=== PATIENT | female | born 1940 | race Caucasian/White ===

== ENCOUNTER 2017-09-17 13:18 | Inpatient (IN) | payer MEDICARE ==
--- NOTE | 2017-09-17 13:48 | ED Physician Chart ---
ED Chief Complaint/HPI - Patient Information Date Seen:: 09/17/17 Time Seen:: 13:37 Chief Complaint:: r/o chf History of Present Illness:: 77 yr old female here from [facility] of [facility] SPANN , PT WITH HX OF PLEURAL EFFUSION CARDIOMEGALY AND SOB ALSO PT WITH DIFFUSE SKIN LESIONS THROUGHOUT PT ANXIOUS NOT VERY COOPERATIVE AND CONFUSED ALERT TO NAME AND TYPE OF PLACE Allergies:: Allergies Allergy/AdvReac Type Severity Reaction Status Date / Time ibuprofen Allergy Verified 09/17/17 13:27 Vitals:: Vital Signs - 8 hr 09/17/17 13:27 Temp 97.1 F HR 95 RR 17 BP 135/92 O2 Sat % 95 Historian:: Patient, Medical Records ED Review of Systems - Review of Systems General/Constitutional: No fever, No chills, No weight loss, No weakness, No diaphoresis, No edema, No loss of appetite Skin: Skin lesions, Rash, Bruising Head: No headache, No light-headedness Eyes: No loss of vision, No pain, No diplopia ENT: No earache, No nasal drainage, No sore throat, No tinnitus Neck: No neck pain, No swelling, No thyromegaly, No stiffness, No mass noted Cardio Vascular: No chest pain, No palpitations, No PND, No orthopnea, No edema Pulmonary: SOB GI: No nausea, No vomiting, No diarrhea, No pain, No melena, No hematochezia, No constipation, No hematemesis G/U: No dysuria, No frequency, No hematuria Musculoskeletal: No bone or joint pain, No back pain, No muscle pain Endocrine: No polyuria, No polydipsia Psychiatric: Anxiety Hematopoietic: No bruising, No lymphadenopathy Allergic/Immuno: No urticaria, No angioedema Neurological: No syncope, No focal symptoms, No weakness, No paresthesia, No headache, No seizure, No dizziness, No confusion, No vertigo ED Past Medical History - Past Medical History Past Medical History: CHF, Other (CARDIOMEGALY PLEURAL EFFUSIONS) ED Physical Exam - Physical Examination General/Constitutional: Alert Head: Atraumatic Eyes: Lids, conjuctiva normal Other Skin comments:: LARGE SKIN LESIONS OPEN THROUGHOUT BACK AND LEGS AND THROUGHOUT OPEN SCRATCH LESIONS WITH ERYTHEMA ENMT: External ears, nose nl Neck: Nontender Respiratory: Nl effort/Exclusion GI: No tenderness/rebounding/guarding, No organomegaly : No CVA tenderness Extremities: Full ROM Neuro/Psych: Alert/oriented Misc: No paraspinal tenderness ED Assessment - Assessment General Assessment: CHF DERMATITIS ED Septic Shock - . Is Septic Shock (SBP<90, OR Lactate>4 mmol\L) present?: No - <6hrs of presentation: Vital Signs: Vital Signs - 8 hr 09/17/17 13:27 Temp 97.1 F HR 95 RR 17 BP 135/92 O2 Sat % 95 ED Reassessment (Disposition) - Reassessment Reassessment Condition:: Improved - Diagnosis Diagnosis:: CHF DERMATITIS - Patient Disposition Discharge/Transfer:: Acute Care w/in this hosp Admitted to:: Med/Surg ED Discharge Plan - Patient Disposition Admit/Discharge/Transfer: Acute Care w/in this hosp Condition at Disposition: Stable
[2017-09-17 14:15] LABS: % BASOPHILS 0.7 % (0.0-2.0); % EOSINOPHILS 1.8 % (0.0-5.0); % LYMPHOCYTES 24.6 % (20.0-50.0); % MONOCYTES 7.2 % (2.0-10.0); % NEUTROPHILS 65.7 % (40.0-80.0); BASOPHILE ABSOLUTE 0.1 Th/cumm (0-0.2); EOSINOPHILE ABSOLUTE 0.1 Th/cmm (0.1-0.4); HEMATOCRIT 46.9 % (41.0-60); HEMOGLOBIN 15.3 gm/dL (12-16); LYMPHOCYTE ABSOLUTE 1.9 Th/cmm (1.5-3.0); MEAN CORPUSCULAR HEMOGLOBIN 24.7 pg (27.0-31.0); MEAN CORPUSCULAR HGB CONC 32.5 pg (28.0-36.0); MONOCYTE ABSOLUTE 0.5 Th/cmm (0.3-1.0); PLATELET COUNT 179 Th/cmm (150-400); RED BLOOD COUNT 6.18 Mil/cmm (3.80-5.20); RED CELL DISTRIBUTION WIDTH 15.3 % (11.5-20.0); WHITE BLOOD COUNT 7.6 Th/cmm (4.8-10.8)
[2017-09-17 14:22] LABS: INR 1.08 (0.5-1.4); PROTHROMBIN TIME (TEST) 11.2 SECONDS (9.5-11.5)
[2017-09-17 14:31] LABS: ALB/GLOB RATIO 0.6 (1.0-1.8); ALBUMIN 2.8 gm/dL (3.7-5.3); ALKALINE PHOSPHATASE 113 U/L (34-104); ANION GAP 10.7 (7.0-16.0); BILIRUBIN,TOTAL 1.6 mg/dL (0.3-1.0); BUN - UREA NITROGEN 14 mg/dL (7-25); CALCIUM SERUM 8.9 mg/dL (8.6-10.3); CARBON DIOXIDE 28.9 mEq/L (21.0-31.0); CHLORIDE 94 mEq/L (98-107); CREATININE - SERUM 0.6 mg/dL (0.6-1.2); GLUCOSE 188 mg/dL (70-105); POTASSIUM SERUM 3.6 mEq/L (3.5-5.1); SGOT 30 U/L (13-39); SGPT/ALT 22 U/L (7-52); SODIUM SERUM 130 mEq/L (136-145); TOTAL PROTEIN,SERUM 7.4 gm/dL (6.0-8.3)
[2017-09-17] MEDS ORDERED: cefTRIAXone 2 GM in Sodium Chloride 0.9% 100 ML IV ONE (15:29)
[2017-09-17] MEDS ORDERED: Sodium Chloride 0.9% 1,000 ML IV ONE (15:29)
[2017-09-17 17:26] VITALS: BP 113/48
[2017-09-17 19:43] LABS: A1C % 7.8 % (4.0-6.0)
[2017-09-17] MEDS ORDERED: Magnesium Hydroxide (MOM) 30 mL UDC PO PRN (20:12)
[2017-09-17] MEDS ORDERED: Non-Formulary Item 1 EA (Ondansetron Hcl [Zofran*] 4 MG) PO PRN (20:12)
[2017-09-17] MEDS ORDERED: Morphine Sulfate 2 mg/mL 1mL Syr IVP PRN (20:21)
[2017-09-17] MEDS: INSULIN ASPART SLIDING SCALE 100 UNITS/ML UNIT SUBQ SCH (21:14)
--- NOTE | 2017-09-17 21:24 | History & Physical ---
ADMIT DATE: 09/17/2017 HISTORY OF PRESENT ILLNESS: This patient came into the Emergency Room, [facility]. Prior history of congestive heart failure, prior history of psychosis, and the patient developed a lot of skin lesions. The patient was short of breath and had pleural effusion, had cardiomegaly, and also had a history of cardiomyopathy. The patient was short of breath, was simply evaluated in the ER, was admitted for dermatitis, skin infection, cardiomegaly, cardiomyopathy, congestive heart failure. REVIEW OF SYSTEMS: Essentially skin lesions and rash and bruising. PHYSICAL EXAMINATION: HEAD: Normal. ENT: Normal. LUNGS: Bilateral rales. CARDIOVASCULAR SYSTEM: S1, S2 heard. ABDOMEN: Soft. Bowel sounds are heard. CENTRAL NERVOUS SYSTEM: The patient is confused and has underlying psychosis. DIAGNOSES: Congestive heart failure, cardiomyopathy, cardiomegaly, infected skin lesions, rule out scabies, rule out sepsis, also history of psychosis. PLAN: The patient was admitted for further diagnostic and therapeutic measures. [facility]# [id number]
[2017-09-18] MEDS: Triple Antibiotic 0.94 gm Pkt TP SCH ×2 (02:38→08:15)
[2017-09-18 04:58] LABS: % BASOPHILS 0.7 % (0.0-2.0); % EOSINOPHILS 1.6 % (0.0-5.0); % MONOCYTES 7.6 % (2.0-10.0); % NEUTROPHILS 70.1 % (40.0-80.0); BASOPHILE ABSOLUTE 0.1 Th/cumm (0-0.2); EOSINOPHILE ABSOLUTE 0.1 Th/cmm (0.1-0.4); HEMATOCRIT 42.8 % (41.0-60); HEMOGLOBIN 13.8 gm/dL (12-16); LYMPHOCYTE ABSOLUTE 1.5 Th/cmm (1.5-3.0); MEAN CELL VOLUME 75.7 fl (81-100); MEAN CORPUSCULAR HEMOGLOBIN 24.3 pg (27.0-31.0); MEAN CORPUSCULAR HGB CONC 32.1 pg (28.0-36.0); MONOCYTE ABSOLUTE 0.6 Th/cmm (0.3-1.0); PLATELET COUNT 171 Th/cmm (150-400); RED BLOOD COUNT 5.65 Mil/cmm (3.80-5.20); RED CELL DISTRIBUTION WIDTH 15.5 % (11.5-20.0); WHITE BLOOD COUNT 7.3 Th/cmm (4.8-10.8)
[2017-09-18 05:21] LABS: ANION GAP 8.7 (7.0-16.0); BUN - UREA NITROGEN 15 mg/dL (7-25); CALCIUM SERUM 8.5 mg/dL (8.6-10.3); CARBON DIOXIDE 28.1 mEq/L (21.0-31.0); CHLORIDE 96 mEq/L (98-107); CHOLESTEROL 115 mg/dL (<200); CREATININE - SERUM 0.5 mg/dL (0.6-1.2); GLUCOSE 133 mg/dL (70-105); HDL -HIGH DENSITY LIPOPROTEIN 39 mg/dL (23-92); POTASSIUM SERUM 3.8 mEq/L (3.5-5.1); SODIUM SERUM 129 mEq/L (136-145); TRIGLYCERIDES 49 mg/dL (<150)
--- NOTE | 2017-09-18 08:00 | Diagnostic Imaging Report ---
Exam: Portable chest x-ray HISTORY: Shortness of breath. Findings: Portable upright examination of the chest at 1411 hours reviewed, no prior studies available for comparison. The study demonstrates cardiomegaly. Bilateral infiltrates superimposed effusions. Mild congestion present. Bony thorax intact. The aorta is calcified. COPD changes noted. IMPRESSION: COPD changes Basilar infiltrates superimposed effusions Congestion. Follow-up examination recommended.
[2017-09-18] MEDS: INSULIN ASPART SLIDING SCALE 100 UNITS/ML UNIT SUBQ SCH ×4 (08:13→20:17)
[2017-09-18] MEDS: Multivitamin w/ Minerals Tab PO SCH (08:16)
--- NOTE | 2017-09-18 16:21 | General Progress Note ---
Subjective - Review of Systems Events since last encounter: no distress Objective - Results Result Diagrams: 09/18/17 04:35 09/18/17 04:35 Recent Labs: Laboratory Last Values WBC 7.3 Th/cmm (4.8-10.8) 09/18/17 04:35 RBC 5.65 Mil/cmm (3.80-5.20) H 09/18/17 04:35 Hgb 13.8 gm/dL (12-16) 09/18/17 04:35 Hct 42.8 % (41.0-60) 09/18/17 04:35 MCV 75.7 fl (81-100) L 09/18/17 04:35 MCH 24.3 pg (27.0-31.0) L 09/18/17 04:35 MCHC Differential 32.1 pg (28.0-36.0) 09/18/17 04:35 RDW 15.5 % (11.5-20.0) 09/18/17 04:35 Plt Count 171 Th/cmm (150-400) 09/18/17 04:35 MPV 7.0 fl 09/18/17 04:35 Neutrophils % 70.1 % (40.0-80.0) 09/18/17 04:35 Lymphocytes % 20.0 % (20.0-50.0) 09/18/17 04:35 Monocytes % 7.6 % (2.0-10.0) 09/18/17 04:35 Eosinophils % 1.6 % (0.0-5.0) 09/18/17 04:35 Basophils % 0.7 % (0.0-2.0) 09/18/17 04:35 PT 11.2 SECONDS (9.5-11.5) 09/17/17 13:48 INR 1.08 (0.5-1.4) 09/17/17 13:48 PTT (Actin FS) 26.4 SECONDS (26.0-38.0) 09/17/17 13:48 Sodium 129 mEq/L (136-145) L 09/18/17 04:35 Potassium 3.8 mEq/L (3.5-5.1) 09/18/17 04:35 Chloride 96 mEq/L (98-107) L 09/18/17 04:35 Carbon Dioxide 28.1 mEq/L (21.0-31.0) 09/18/17 04:35 Anion Gap 8.7 (7.0-16.0) 09/18/17 04:35 BUN 15 mg/dL (7-25) 09/18/17 04:35 Creatinine 0.5 mg/dL (0.6-1.2) L 09/18/17 04:35 Est GFR ( Amer) TNP 09/18/17 04:35 Est GFR (Non-Af Amer) TNP 09/18/17 04:35 BUN/Creatinine Ratio 30.0 09/18/17 04:35 Glucose 133 mg/dL (70-105) H 09/18/17 04:35 POC Glucose 128 MG/DL (70 - 105) H 09/18/17 16:06 Hemoglobin A1c % 7.8 % (4.0-6.0) H 09/17/17 13:48 Whole Bld Lactic Acid 1.56 mmol/L (0.60-1.99) 09/17/17 15:48 Calcium 8.5 mg/dL (8.6-10.3) L 09/18/17 04:35 Total Bilirubin 1.6 mg/dL (0.3-1.0) H 09/17/17 13:48 AST 30 U/L (13-39) 09/17/17 13:48 ALT 22 U/L (7-52) 09/17/17 13:48 Alkaline Phosphatase 113 U/L (34-104) H 09/17/17 13:48 B-Natriuretic Peptide 1840.0 pg/mL (5.0-100.0) H 09/18/17 04:35 Total Protein 7.4 gm/dL (6.0-8.3) 09/17/17 13:48 Albumin 2.8 gm/dL (3.7-5.3) L 09/17/17 13:48 Globulin 4.6 gm/dL 09/17/17 13:48 Albumin/Globulin Ratio 0.6 (1.0-1.8) L 09/17/17 13:48 Triglycerides 49 mg/dL (<150) 09/18/17 04:35 Cholesterol 115 mg/dL (<200) 09/18/17 04:35 LDL Cholesterol Direct 72 mg/dL (75-193) L 09/18/17 04:35 HDL Cholesterol 39 mg/dL (23-92) 09/18/17 04:35 TSH 1.26 uIU/ml (0.34-5.60) 09/18/17 04:35 - Physical Exam Vitals and I&O: Vital Signs Temp 97.6 F 09/18/17 16:10 Pulse 94 09/18/17 16:16 Resp 18 09/18/17 16:10 BP 131/110 09/18/17 16:16 Pulse Ox 97 09/18/17 16:10 Intake & Output 09/17/17 09/18/17 09/18/17 18:59 06:59 18:59 Intake Total 1450 600 Output Total 500 Balance 1450 100 Weight (lbs) 65.998 kg 62.142 kg Intake: Intake, IV Amount 1100 Sodium Chloride 0.9% 1, 1000 000 ml @ Wide Open IV . Q0M ONE Rx#:[id number] cefTRIAXone 2 gm In 100 Sodium Chloride 0.9% 100 ml @ 100 mls/hr IV X1 ONE Rx#:[id number] Oral 350 600 Output: Urine 500 Other: # Voids 2 2 # Bowel Movements 1 1 Stool Characteristics Soft Soft Weight Source Bedscale Bedscale Active Medications: Current Medications Acetaminophen (Tylenol) 650 mg PO Q4HR PRN PRN Reason: PAIN OR TEMP >101 Stop: 11/16/17 20:11 Carvedilol (Coreg) 3.125 mg PO BID [facility] Stop: 11/17/17 08:59 Last Admin: 09/18/17 16:16 Dose: 3.125 mg Diphenhydramine HCl (Benadryl) 25 mg PO TID PRN PRN Reason: Itching Stop: 11/16/17 20:20 Last Admin: 09/18/17 14:01 Dose: 25 mg Divalproex Sodium (Depakote Dr) 125 mg PO BID [facility]; Protocol Stop: 11/17/17 08:59 Last Admin: 09/18/17 16:15 Dose: 125 mg Docusate Sodium (Colace) 250 mg PO DAILY [facility] Stop: 11/17/17 08:59 Last Admin: 09/18/17 08:15 Dose: 250 mg Furosemide (Lasix) 40 mg IVP BID [facility] Stop: 11/17/17 16:59 Vancomycin HCl 1.25 gm/ Sodium (Chloride) 250 mls @ 165 mls/hr IV Q24HR@0900 [facility] Stop: 11/17/17 14:59 Last Admin: 09/18/17 15:11 Dose: Not Given Insulin Aspart (Novolog Insulin Sliding Scale) 0 units SUBQ ACHS [facility]; Protocol Stop: 11/16/17 20:59 Last Admin: 09/18/17 12:04 Dose: 1 units Lisinopril (Zestril) 5 mg PO DAILY [facility] Stop: 11/17/17 08:59 Last Admin: 09/18/17 08:16 Dose: 5 mg Lorazepam (Ativan) 1 mg IM Q6HR PRN; Protocol PRN Reason: agitation Stop: 11/17/17 15:31 Magnesium Hydroxide (Milk Of Magnesia) 30 ml PO HS PRN PRN Reason: Constipation Stop: 11/16/17 20:11 Mirtazapine (Remeron) 7.5 mg PO HS [facility]; Protocol Stop: 11/17/17 20:59 Miscellaneous (Vancomycin Iv Per Pharmacy) 1 ea MC PRN [facility] Stop: 11/17/17 13:59 Morphine Sulfate (Morphine) 1 mg IVP Q4HR PRN PRN Reason: moderate to severe pain Stop: 11/16/17 20:20 Last Admin: 09/17/17 21:09 Dose: 1 mg Neomycin/Polymyxin/Bacitracin (Triple Antibiotic Pkt) 1 pkt TP DAILY [facility] Stop: 11/16/17 20:44 Last Admin: 09/18/17 08:15 Dose: 1 pkt Ondansetron HCl (Zofran) 4 mg IV Q4H PRN PRN Reason: Nausea / Vomiting Stop: 11/16/17 20:21 Assessment/Plan - Problem List Patient Problems: All Active Problems SWOLLEN FEET WITH SKIN LESIONS (Acute) Nutritional Asmnt/Malnutr-PDOC - Dietary Evaluation Malnutrition Findings (Please click <Entered> for more info): Nutritional Asmnt/Malnutrition Start: 09/18/17 15: 00 Text: Status: Complete Freq: Protocol: Document 09/18/17 15:27 [email or web address] (Rec: 09/18/17 15:54 ROHAN [email or web address]) Nutritional Asmnt/Malnutrition Patient General Information Nutritional Screening Moderate Risk Diagnosis hyponatremia, elevated lactic Pertinent Medical Hx/Surgical Hx CHF Subjective Information Consult received for initial glucose 188. Pt seen lying in bed at time of visit, drowsy. Per RN, pt did not have breakfast d/t sleepy in the morning. Per EMR, pt consumed 75% of dinner last night. Current Diet Order/ Nutrition Support [facility] Pertinent Medications colace, lasix, novolog, vancomycin Pertinent Labs 09/18 Na 129, Cl 96, Cr 0.5, glucose 133, POC 131 09/17 Na 130, Cl 94, glucose 188, POC 208, A1c 7.8 Nutritional Hx/Data Height 1.65 m Height (Calculated Centimeters) 165.1 Current Weight (lbs) 62.142 kg Weight (Calculated Kilograms) 62.1 Weight (Calculated Grams) 38187.2 [place] Body Weight 115 Body Mass Index (BMI) 22.8 Weight Status Approriate GI Symptoms GI Symptoms None Last BM 09/18 Difficult in: None Skin Integrity/Comment: laceration to right arm, leg, buttocks, back Current %PO Good (75-100%) Estimated Nutritional Goals BEE in Kcals: Using Current wt Calories/Kcals/Kg 25-30 Kcals Calculated 4016-9539 Protein: Using Current wt Protein g/k.8-1 Protein Calculated 50-62 Fluid: ml 1550-1860ml (1ml/kcal) Nutritional Problem 1. Problem Problem altered nutrition related labs Etiology electrolytes imbalance, hx of DM Signs/Symptoms: Na 129, glucose 133-188, POC 131-208, A1c 7.8 Malnutrition Alert Is there a minimum of two criteria No selected? Query Text:Check all the applicable criteria. A minimum of two criteria are recommended for diagnosis of either severe or non-severe malnutrition. Malnutrition Related to Morbid Obesity Malnutrition related to morbid obesity No Intervention/Recommendation Comments 1. Continue with [facility] diet as ordered. Feed assist with meals as needed. 2. Monitor PO intake, wt, labs and skin integrity 3. F/U as moderate risk in 7 days, 09/21-09/23 Expected Outcomes/Goals Expected Outcomes/Goals 1. PO intake to meet at least 75% of nutritional needs. 2. Wt stability, skin to remain intact, labs to approach WNL.
--- NOTE | 2017-09-18 23:50 | Consultation ---
DATE OF CONSULTATION: 09/18/[address] Williamson. HISTORY OF PRESENT ILLNESS: This is a 77-year-old female patient who was ____ complaining of shortness of breath. The patient was found to have elevated BNP level, following which cardiac consult is requested. PAST MEDICAL HISTORY: Congestive heart failure, pleural effusion, dementia, and osteoporosis. FAMILY HISTORY: Unremarkable. SOCIAL HISTORY: No history of smoking, alcohol abuse. ALLERGIES: No known allergies. PHYSICAL EXAMINATION: VITAL SIGNS: Blood pressure 130/80, pulse 70, and respirations 20. HEAD: Normocephalic. No lumps or bumps. EYES: Pupils equal, reactive to light. Fundi show AV nicking, sclerae white, conjunctivae pink. NECK: Carotid 2+. Normal upstroke. JVD 10 cm above sternal angle. Thyroid not palpable. Lymph nodes not palpable. CHEST: Shows increased AP diameter. No kyphosis, scoliosis. LUNGS: Bilateral rales. Decreased breath sounds both the bases. HEART: PMI sixth intercostal space with lateral to midclavicular line. S1, S2, S3, S4, soft systolic murmur. ABDOMEN: Soft. Liver, spleen not palpable. No organomegaly. Bowel sounds active. NEUROLOGIC: No focal neurological deficit. EXTREMITIES: Peripheral pulses 1+, pedal edema 1+. CLINICAL IMPRESSION: Congestive heart failure, systolic dysfunction, acute cardiomyopathy, nonischemic, psychosis, osteoporosis, and iron deficiency anemia. PLAN: Admit the patient. We will start the patient on diuretics, preload afterload reduction, echocardiogram. [facility]# [id number]
--- NOTE | 2017-09-19 00:58 | Consultation ---
DATE OF CONSULTATION: 09/18/2017 INFECTIOUS DISEASE CONSULTATION REFERRING PHYSICIAN: Shaniqua Williamson MD. REASON FOR CONSULTATION: Body rash. HISTORY OF PRESENT ILLNESS: The patient is a 77-year-old female with a past medical history of CHF, cardiomyopathy, cardiomegaly, and psychosis, brought in from nursing facility for multiple rashes and formation of scab and ulcers with surrounding discoloration. These are relatively large in size. Most of the ulcers are around 2-5 cm in maximal dimension. Otherwise, the patient is afebrile. WBC count is 7300. ID consult was called for antibiotic management. PAST MEDICAL HISTORY: Includes CHF, cardiomyopathy, psychosis, and cardiomegaly. MEDICATIONS: As per medication reconciliation sheet. ALLERGIES: NKDA. SOCIAL HISTORY: The patient lives at nursing facility. She has no history of smoking, alcohol, or drug use. REVIEW OF SYSTEMS: GENERAL: The patient has no fever, no chills. HEENT: No diplopia, no photophobia, and no sore throat. RESPIRATORY: No cough. No shortness of breath. CVS: No chest pain. No palpitation. GASTROINTESTINAL: No nausea, no vomiting, no diarrhea, and no constipation. GENITOURINARY: No dysuria. NEUROLOGIC: No headache, no dizziness, and no focal weakness. SKIN: The patient have multiple superficial ulcers with a surrounding discoloration of the skin on multiple parts of the area including extremities and torso. No involvement of palms or soles. PHYSICAL EXAMINATION: VITAL SIGNS: Current vital signs shows temperature is 96.6, pulse 68, respirations 17, and blood pressure 127/82. GENERAL: The patient is comfortable, lying in the bed, not in acute distress. HEENT: Head is normocephalic, atraumatic. Oral cavity moist, pink tongue. Eyes: No pallor, no icterus. Pupils: PERRLA, EOMI. NECK: Supple. No JVD. No carotid bruit. Trachea in midline. CHEST: Bilateral breath sounds. No crackles or wheezing. CARDIOVASCULAR: S1, S2 within normal limits. Regular rhythm. No murmur. No gallop. ABDOMEN: Soft, nontender, and nondistended. Bowel sounds present. EXTREMITIES: No cyanosis, no clubbing, and no edema. NEUROLOGIC: Alert, awake, and oriented x 3. No focal deficits. SKIN: As mentioned above, the patient has multiple superficial ulcerations with surrounding erythema, also has pidyviwy-tv-rusbn size around 2-5 cm in maximal diameter. LABORATORY DATA: Lab-lyle, current lab shows WBC count is 7300, hemoglobin is 13.8, platelets are 171,000, and neutrophils 70%. Sodium is 129, potassium is 3.8, chloride is 96, bicarbonate is 28, BUN is 15, creatinine is 0.5, and glucose is 133. IMPRESSION: 1. Generalized rash and ulceration, most likely folliculitis. 2. Congestive heart failure. 3. Cardiomyopathy. 4. Psychosis. RECOMMENDATIONS: We will continue skin care. We will start vancomycin IV. If the lesion does not improve in 1-2 days, may consider a skin biopsy to reach the definite diagnosis. Thank you, Dr. Williamson, for involving me in taking care of this patient. [facility]# [id number]
--- NOTE | 2017-09-19 03:57 | Progress Notes ---
DATE: 09/18/2017 IDENTIFYING INFORMATION: The patient is a 77-year-old female. CHIEF COMPLAINT: "None of your business." REASON FOR CONSULTATION: The patient is a 77-year-old female who was admitted because of dehydration and hyponatremia. The patient herself was a poor historian. She was having altered level of consciousness. The patient was extremely uncooperative, answer most questions like I do not know or it is none of your business. She knew she was in [place], unable to tell me the date, unable tell me her age whether she is or not. She could tell me it is none of my business. She has been very agitated, uncooperative. When asked about prior psychiatric treatment she said none of my business. I asked if wants to harm herself. She would not answer. She has a history of visual hallucinations and she was very hard to redirect. PAST PSYCHIATRIC HISTORY: The patient refused to give any information. FAMILY AND SOCIAL HISTORY: Unobtainable. MEDICAL HISTORY: Deferred to the medical doctor. MENTAL STATUS EXAMINATION: The patient is appropriately dressed, not very groomed. She was alert. She was unable to tell me the date, her age. She knew she was at [place]. She does not know why she is here. Answered most questions by "I don't know or none of my business." She was irritable, unpredictable, impulsive, needing redirection, uncooperative with formal mental status exam. Insight and judgment, when I asked about suicide and homicide she got upset, could not answer the question. Insight and judgment is impaired. IMPRESSION: Rigby I: Mood disorder, not otherwise specified, rule out bipolar disorder. PLAN: I would recommend to start the patient on Ativan 3 times a day 0.5 mg as needed, Remeron 75 mg at bedtime. The patient needs follow up with the psychiatrist upon discharge. Thank you very much for allowing me to participate in the care of this most interesting lady. [facility]# [id number]
[2017-09-19 05:16] LABS: ANION GAP 9.7 (7.0-16.0); BUN - UREA NITROGEN 13 mg/dL (7-25); CALCIUM SERUM 8.8 mg/dL (8.6-10.3); CARBON DIOXIDE 31.7 mEq/L (21.0-31.0); CHLORIDE 98 mEq/L (98-107); CREATININE - SERUM 0.5 mg/dL (0.6-1.2); GLUCOSE 77 mg/dL (70-105); POTASSIUM SERUM 3.4 mEq/L (3.5-5.1); SODIUM SERUM 136 mEq/L (136-145)
[2017-09-19] MEDS: INSULIN ASPART SLIDING SCALE 100 UNITS/ML UNIT SUBQ SCH ×4 (06:38→21:36)
[2017-09-19] MEDS: Multivitamin w/ Minerals Tab PO SCH (08:31)
[2017-09-19] MEDS: Triple Antibiotic 0.94 gm Pkt TP SCH (08:31)
[2017-09-19] MEDS ORDERED: Potassium Chloride 20 mEq ER Tab PO ONE (08:59)
[2017-09-19] MEDS: Metolazone 5 MG TAB PO SCH ×2 (12:25→16:27)
--- NOTE | 2017-09-19 12:58 | Cardiology ---
09/18/[address] Williamson. M-MODE ECHOCARDIOGRAM: Mitral valve, anterior leaflet of mitral valve shows decreased excursion, EF velocity. Posterior leaflet of mitral valve shows decreased excursion. Left ventricular posterior wall shows increased thickness, decreased excursion. Interventricular septum shows increased thickness, decreased excursion, ejection fraction 20%. Left atrium normal. Aortic root shows normal dimension, normal excursion of aortic leaflets. CONCLUSION: Hypertrophy of the left ventricle, cardiomyopathy, ejection fraction 20%. 2D ECHO: Long axis view shows enlarged left ventricular cavity with decreased ejection fraction, hypertrophy of the left ventricle. Left atrium normal. Aortic root shows normal dimension, normal excursion of aortic leaflets. Short axis view of mitral valve normal. Short axis view of aortic valve normal. Apical four chamber view shows enlarged left ventricular cavity with decreased ejection fraction, hypertrophy of the left ventricle. Left atrium normal. Aortic root shows normal dimension, normal excursion of aortic leaflets. Short axis view of mitral valve normal. Short axis view of aortic valve normal. Apical four chamber view shows enlarged left ventricular cavity with decreased ejection fraction, hypertrophy of the left ventricle. Left atrium normal. Right ventricular cavity, right atrium normal. No pericardial effusion. CONCLUSION: Cardiomyopathy, ejection fraction 20%. Doppler study shows mild to moderate mitral regurgitation. [facility]# [id number]
--- NOTE | 2017-09-19 21:34 | General Progress Note ---
Subjective - Review of Systems Service Date: 09/19/17 Subjective: awake comfortable nad Objective - Results Result Diagrams: 09/18/17 04:35 09/19/17 04:35 Recent Labs: Laboratory Last Values WBC 7.3 Th/cmm (4.8-10.8) 09/18/17 04:35 RBC 5.65 Mil/cmm (3.80-5.20) H 09/18/17 04:35 Hgb 13.8 gm/dL (12-16) 09/18/17 04:35 Hct 42.8 % (41.0-60) 09/18/17 04:35 MCV 75.7 fl (81-100) L 09/18/17 04:35 MCH 24.3 pg (27.0-31.0) L 09/18/17 04:35 MCHC Differential 32.1 pg (28.0-36.0) 09/18/17 04:35 RDW 15.5 % (11.5-20.0) 09/18/17 04:35 Plt Count 171 Th/cmm (150-400) 09/18/17 04:35 MPV 7.0 fl 09/18/17 04:35 Neutrophils % 70.1 % (40.0-80.0) 09/18/17 04:35 Lymphocytes % 20.0 % (20.0-50.0) 09/18/17 04:35 Monocytes % 7.6 % (2.0-10.0) 09/18/17 04:35 Eosinophils % 1.6 % (0.0-5.0) 09/18/17 04:35 Basophils % 0.7 % (0.0-2.0) 09/18/17 04:35 PT 11.2 SECONDS (9.5-11.5) 09/17/17 13:48 INR 1.08 (0.5-1.4) 09/17/17 13:48 PTT (Actin FS) 26.4 SECONDS (26.0-38.0) 09/17/17 13:48 Sodium 136 mEq/L (136-145) 09/19/17 04:35 Potassium 3.4 mEq/L (3.5-5.1) L 09/19/17 04:35 Chloride 98 mEq/L (98-107) 09/19/17 04:35 Carbon Dioxide 31.7 mEq/L (21.0-31.0) H 09/19/17 04:35 Anion Gap 9.7 (7.0-16.0) 09/19/17 04:35 BUN 13 mg/dL (7-25) 09/19/17 04:35 Creatinine 0.5 mg/dL (0.6-1.2) L 09/19/17 04:35 Est GFR ( Amer) TNP 09/19/17 04:35 Est GFR (Non-Af Amer) TNP 09/19/17 04:35 BUN/Creatinine Ratio 26.0 09/19/17 04:35 Glucose 77 mg/dL (70-105) 09/19/17 04:35 POC Glucose 83 MG/DL (70 - 105) 09/19/17 16:26 Hemoglobin A1c % 7.8 % (4.0-6.0) H 09/17/17 13:48 Whole Bld Lactic Acid 1.56 mmol/L (0.60-1.99) 09/17/17 15:48 Calcium 8.8 mg/dL (8.6-10.3) 09/19/17 04:35 Total Bilirubin 1.6 mg/dL (0.3-1.0) H 09/17/17 13:48 AST 30 U/L (13-39) 09/17/17 13:48 ALT 22 U/L (7-52) 09/17/17 13:48 Alkaline Phosphatase 113 U/L (34-104) H 09/17/17 13:48 B-Natriuretic Peptide 2300.0 pg/mL (5.0-100.0) H 09/19/17 04:35 Total Protein 7.4 gm/dL (6.0-8.3) 09/17/17 13:48 Albumin 2.8 gm/dL (3.7-5.3) L 09/17/17 13:48 Globulin 4.6 gm/dL 09/17/17 13:48 Albumin/Globulin Ratio 0.6 (1.0-1.8) L 09/17/17 13:48 Triglycerides 49 mg/dL (<150) 09/18/17 04:35 Cholesterol 115 mg/dL (<200) 09/18/17 04:35 LDL Cholesterol Direct 72 mg/dL (75-193) L 09/18/17 04:35 HDL Cholesterol 39 mg/dL (23-92) 09/18/17 04:35 TSH 1.26 uIU/ml (0.34-5.60) 09/18/17 04:35 - Physical Exam Vitals and I&O: Vital Signs Temp 97 F 09/19/17 20:00 Pulse 83 09/19/17 20:00 Resp 18 09/19/17 20:00 BP 112/63 09/19/17 20:00 Pulse Ox 93 09/19/17 20:00 Intake & Output 09/19/17 09/19/17 09/20/17 06:59 18:59 06:59 Intake Total 250 2300 Balance 250 2300 Weight (lbs) 60.781 kg 60.781 kg Intake: Intake, IV Amount 250 Vancomycin HCl 1.25 gm In 250 Sodium Chloride 0.9% 250 ml @ 165 mls/hr IV Q24HR @0900 [facility] Rx#:[id number] Oral 2300 Other: # Voids 5 # Bowel Movements 1 Stool Characteristics Soft Weight Source Estimated Bedscale Active Medications: Current Medications Acetaminophen (Tylenol) 650 mg PO Q4HR PRN PRN Reason: PAIN OR TEMP >101 Stop: 11/16/17 20:11 Carvedilol (Coreg) 3.125 mg PO BID [facility] Stop: 11/17/17 08:59 Last Admin: 09/19/17 16:28 Dose: 3.125 mg Diphenhydramine HCl (Benadryl) 25 mg PO TID PRN PRN Reason: Itching Stop: 11/16/17 20:20 Last Admin: 09/19/17 18:12 Dose: 25 mg Divalproex Sodium (Depakote Dr) 125 mg PO BID [facility]; Protocol Stop: 11/17/17 08:59 Last Admin: 09/19/17 16:28 Dose: 125 mg Docusate Sodium (Colace) 250 mg PO DAILY [facility] Stop: 11/17/17 08:59 Last Admin: 09/19/17 08:32 Dose: 250 mg Furosemide (Lasix) 40 mg IVP BID [facility] Stop: 11/17/17 16:59 Last Admin: 09/19/17 16:28 Dose: 40 mg Vancomycin HCl 1.25 gm/ Sodium (Chloride) 250 mls @ 165 mls/hr IV Q24HR@0900 [facility] Stop: 11/17/17 14:59 Last Admin: 09/19/17 08:30 Dose: 165 mls/hr Insulin Aspart (Novolog Insulin Sliding Scale) 0 units SUBQ ACHS [facility]; Protocol Stop: 11/16/17 20:59 Last Admin: 09/19/17 16:46 Dose: Not Given Lisinopril (Zestril) 5 mg PO DAILY [facility] Stop: 11/17/17 08:59 Last Admin: 09/19/17 08:31 Dose: 5 mg Lorazepam (Ativan) 1 mg IM Q6HR PRN; Protocol PRN Reason: agitation Stop: 11/17/17 15:31 Last Admin: 09/19/17 18:12 Dose: 1 mg Magnesium Hydroxide (Milk Of Magnesia) 30 ml PO HS PRN PRN Reason: Constipation Stop: 11/16/17 20:11 Metolazone (Zaroxolyn) 5 mg PO BID [facility] Stop: 11/18/17 08:59 Last Admin: 09/19/17 16:27 Dose: 5 mg Mirtazapine (Remeron) 7.5 mg PO HS [facility]; Protocol Stop: 11/17/17 20:59 Last Admin: 09/18/17 20:16 Dose: 7.5 mg Miscellaneous (Vancomycin Iv Per Pharmacy) 1 ea MC PRN [facility] Stop: 11/17/17 13:59 Morphine Sulfate (Morphine) 1 mg IVP Q4HR PRN PRN Reason: moderate to severe pain Stop: 11/16/17 20:20 Last Admin: 09/17/17 21:09 Dose: 1 mg Neomycin/Polymyxin/Bacitracin (Triple Antibiotic Pkt) 1 pkt TP DAILY [facility] Stop: 11/16/17 20:44 Last Admin: 09/19/17 08:31 Dose: 1 pkt Ondansetron HCl (Zofran) 4 mg IV Q4H PRN PRN Reason: Nausea / Vomiting Stop: 11/16/17 20:21 General: No acute distress HEENT: Atraumatic Neck: Supple Cardiovascular: Regular rate Lungs: Clear to auscultation Abdomen: Bowel sounds Skin: Rash Assessment/Plan - Problem List Patient Problems: All Active Problems SWOLLEN FEET WITH SKIN LESIONS (Acute) - Plan Plan: cpm Nutritional Asmnt/Malnutr-PDOC - Dietary Evaluation Malnutrition Findings (Please click <Entered> for more info): Nutritional Asmnt/Malnutrition Start: 09/18/17 15: 00 Text: Status: Complete Freq: Protocol: Document 09/18/17 15:27 LCИРИНАG (Rec: 09/18/17 15:54 LCИРИНАG [email or web address]) Nutritional Asmnt/Malnutrition Patient General Information Nutritional Screening Moderate Risk Diagnosis hyponatremia, elevated lactic Pertinent Medical Hx/Surgical Hx CHF Subjective Information Consult received for initial glucose 188. Pt seen lying in bed at time of visit, drowsy. Per RN, pt did not have breakfast d/t sleepy in the morning. Per EMR, pt consumed 75% of dinner last night. Current Diet Order/ Nutrition Support [facility] Pertinent Medications colace, lasix, novolog, vancomycin Pertinent Labs 09/18 Na 129, Cl 96, Cr 0.5, glucose 133, POC 131 09/17 Na 130, Cl 94, glucose 188, POC 208, A1c 7.8 Nutritional Hx/Data Height 1.65 m Height (Calculated Centimeters) 165.1 Current Weight (lbs) 62.142 kg Weight (Calculated Kilograms) 62.1 Weight (Calculated Grams) [address]03.2 [place] Body Weight 115 Body Mass Index (BMI) 22.8 Weight Status Approriate GI Symptoms GI Symptoms None Last BM 09/18 Difficult in: None Skin Integrity/Comment: laceration to right arm, leg, buttocks, back Current %PO Good (75-100%) Estimated Nutritional Goals BEE in Kcals: Using Current wt Calories/Kcals/Kg 25-30 Kcals Calculated 7374-1928 Protein: Using Current wt Protein g/k.8-1 Protein Calculated 50-62 Fluid: ml 1550-1860ml (1ml/kcal) Nutritional Problem 1. Problem Problem altered nutrition related labs Etiology electrolytes imbalance, hx of DM Signs/Symptoms: Na 129, glucose 133-188, POC 131-208, A1c 7.8 Malnutrition Alert Is there a minimum of two criteria No selected? Query Text:Check all the applicable criteria. A minimum of two criteria are recommended for diagnosis of either severe or non-severe malnutrition. Malnutrition Related to Morbid Obesity Malnutrition related to morbid obesity No Intervention/Recommendation Comments 1. Continue with [facility] diet as ordered. Feed assist with meals as needed. 2. Monitor PO intake, wt, labs and skin integrity 3. F/U as moderate risk in 7 days, 09/21-09/23 Expected Outcomes/Goals Expected Outcomes/Goals 1. PO intake to meet at least 75% of nutritional needs. 2. Wt stability, skin to remain intact, labs to approach WNL.
--- NOTE | 2017-09-20 01:17 | Progress Notes ---
DATE: 09/19/2017 Case was discussed with staff of the patient and reviewed records. The patient continues to be irritable, continues to be a poor historian, continues to be unable to make safe plan for her self-care, not willing to participate in a meaningful conversation, inappropriate answers. She is sleeping better, eating better. She tolerated the Remeron with no side effects. Dr. Mckeon will follow up with the patient. Thank you very much for allowing me to participate in the care of this most interesting lady. [facility]# [id number]
[2017-09-20 05:59] LABS: ANION GAP 11.2 (7.0-16.0); BUN - UREA NITROGEN 21 mg/dL (7-25); CALCIUM SERUM 9.3 mg/dL (8.6-10.3); CARBON DIOXIDE 32.4 mEq/L (21.0-31.0); CHLORIDE 91 mEq/L (98-107); CREATININE - SERUM 0.6 mg/dL (0.6-1.2); GLUCOSE 79 mg/dL (70-105); POTASSIUM SERUM 3.6 mEq/L (3.5-5.1); SODIUM SERUM 131 mEq/L (136-145)
[2017-09-20 06:05] LABS: VANCOMYCIN TROUGH 7.5 ug/mL (5-10)
[2017-09-20] MEDS: INSULIN ASPART SLIDING SCALE 100 UNITS/ML UNIT SUBQ SCH ×4 (07:25→21:52)
[2017-09-20] MEDS: Multivitamin w/ Minerals Tab PO SCH (08:58)
[2017-09-20] MEDS: Triple Antibiotic 0.94 gm Pkt TP SCH (08:58)
[2017-09-20] MEDS: Metolazone 5 MG TAB PO SCH ×2 (08:59→17:00)
[2017-09-20] MEDS ORDERED: Potassium Chloride 20 mEq ER Tab PO ONE ×2 (13:25)
--- NOTE | 2017-09-20 15:16 | General Progress Note ---
Subjective - Review of Systems Events since last encounter: comfortable no distress Subjective: awake comfortable nad Objective - Results Result Diagrams: 09/18/17 04:35 09/20/17 05:35 Recent Labs: Laboratory Last Values WBC 7.3 Th/cmm (4.8-10.8) 09/18/17 04:35 RBC 5.65 Mil/cmm (3.80-5.20) H 09/18/17 04:35 Hgb 13.8 gm/dL (12-16) 09/18/17 04:35 Hct 42.8 % (41.0-60) 09/18/17 04:35 MCV 75.7 fl (81-100) L 09/18/17 04:35 MCH 24.3 pg (27.0-31.0) L 09/18/17 04:35 MCHC Differential 32.1 pg (28.0-36.0) 09/18/17 04:35 RDW 15.5 % (11.5-20.0) 09/18/17 04:35 Plt Count 171 Th/cmm (150-400) 09/18/17 04:35 MPV 7.0 fl 09/18/17 04:35 Neutrophils % 70.1 % (40.0-80.0) 09/18/17 04:35 Lymphocytes % 20.0 % (20.0-50.0) 09/18/17 04:35 Monocytes % 7.6 % (2.0-10.0) 09/18/17 04:35 Eosinophils % 1.6 % (0.0-5.0) 09/18/17 04:35 Basophils % 0.7 % (0.0-2.0) 09/18/17 04:35 PT 11.2 SECONDS (9.5-11.5) 09/17/17 13:48 INR 1.08 (0.5-1.4) 09/17/17 13:48 PTT (Actin FS) 26.4 SECONDS (26.0-38.0) 09/17/17 13:48 Sodium 131 mEq/L (136-145) L 09/20/17 05:35 Potassium 3.6 mEq/L (3.5-5.1) 09/20/17 05:35 Chloride 91 mEq/L (98-107) L 09/20/17 05:35 Carbon Dioxide 32.4 mEq/L (21.0-31.0) H 09/20/17 05:35 Anion Gap 11.2 (7.0-16.0) 09/20/17 05:35 BUN 21 mg/dL (7-25) 09/20/17 05:35 Creatinine 0.6 mg/dL (0.6-1.2) 09/20/17 05:35 Est GFR ( Amer) TNP 09/20/17 05:35 Est GFR (Non-Af Amer) TNP 09/20/17 05:35 BUN/Creatinine Ratio 35.0 09/20/17 05:35 Glucose 79 mg/dL (70-105) 09/20/17 05:35 POC Glucose 159 MG/DL (70 - 105) H 09/20/17 11:47 Hemoglobin A1c % 7.8 % (4.0-6.0) H 09/17/17 13:48 Whole Bld Lactic Acid 1.56 mmol/L (0.60-1.99) 09/17/17 15:48 Calcium 9.3 mg/dL (8.6-10.3) 09/20/17 05:35 Total Bilirubin 1.6 mg/dL (0.3-1.0) H 09/17/17 13:48 AST 30 U/L (13-39) 09/17/17 13:48 ALT 22 U/L (7-52) 09/17/17 13:48 Alkaline Phosphatase 113 U/L (34-104) H 09/17/17 13:48 B-Natriuretic Peptide 1960.0 pg/mL (5.0-100.0) H 09/20/17 05:35 Total Protein 7.4 gm/dL (6.0-8.3) 09/17/17 13:48 Albumin 2.8 gm/dL (3.7-5.3) L 09/17/17 13:48 Globulin 4.6 gm/dL 09/17/17 13:48 Albumin/Globulin Ratio 0.6 (1.0-1.8) L 09/17/17 13:48 Triglycerides 49 mg/dL (<150) 09/18/17 04:35 Cholesterol 115 mg/dL (<200) 09/18/17 04:35 LDL Cholesterol Direct 72 mg/dL (75-193) L 09/18/17 04:35 HDL Cholesterol 39 mg/dL (23-92) 09/18/17 04:35 TSH 1.26 uIU/ml (0.34-5.60) 09/18/17 04:35 Vancomycin Trough 7.5 ug/mL (5-10) 09/20/17 05:35 - Physical Exam Vitals and I&O: Vital Signs Temp 97.0 F 09/20/17 11:25 Pulse 72 09/20/17 11:25 Resp 18 09/20/17 13:00 BP 105/59 09/20/17 11:25 Pulse Ox 92 09/20/17 11:25 Intake & Output 09/19/17 09/20/17 09/20/17 18:59 06:59 18:59 Intake Total 2300 250 Balance 2300 250 Weight (lbs) 60.781 kg 56.79 kg Intake: Intake, IV Amount 250 Vancomycin HCl 1.25 gm In 250 Sodium Chloride 0.9% 250 ml @ 165 mls/hr IV Q12H [facility] Rx#:[id number] Oral 2300 Other: # Voids 5 # Bowel Movements 1 Stool Characteristics Soft Soft Soft Weight Source Bedscale Bedscale Active Medications: Current Medications Acetaminophen (Tylenol) 650 mg PO Q4HR PRN PRN Reason: PAIN OR TEMP >101 Stop: 11/16/17 20:11 Carvedilol (Coreg) 3.125 mg PO BID [facility] Stop: 11/17/17 08:59 Last Admin: 09/20/17 08:59 Dose: 3.125 mg Diphenhydramine HCl (Benadryl) 25 mg PO TID PRN PRN Reason: Itching Stop: 11/16/17 20:20 Last Admin: 09/19/17 18:12 Dose: 25 mg Divalproex Sodium (Depakote Dr) 125 mg PO BID [facility]; Protocol Stop: 11/17/17 08:59 Last Admin: 09/20/17 08:58 Dose: 125 mg Docusate Sodium (Colace) 250 mg PO DAILY [facility] Stop: 11/17/17 08:59 Last Admin: 09/20/17 08:58 Dose: 250 mg Furosemide (Lasix) 40 mg IVP BID [facility] Stop: 11/17/17 16:59 Last Admin: 09/20/17 08:58 Dose: 40 mg Vancomycin HCl 1.25 gm/ Sodium (Chloride) 250 mls @ 165 mls/hr IV Q12H [facility] Stop: 11/19/17 08:59 Last Infusion: 09/20/17 13:01 Dose: Infused Insulin Aspart (Novolog Insulin Sliding Scale) 0 units SUBQ ACHS [facility]; Protocol Stop: 11/16/17 20:59 Last Admin: 09/20/17 12:28 Dose: 3 units Lisinopril (Zestril) 5 mg PO DAILY [facility] Stop: 11/17/17 08:59 Last Admin: 09/20/17 08:58 Dose: 5 mg Lorazepam (Ativan) 1 mg IM Q6HR PRN; Protocol PRN Reason: agitation Stop: 11/17/17 15:31 Last Admin: 09/19/17 18:12 Dose: 1 mg Magnesium Hydroxide (Milk Of Magnesia) 30 ml PO HS PRN PRN Reason: Constipation Stop: 11/16/17 20:11 Metolazone (Zaroxolyn) 5 mg PO BID [facility] Stop: 11/18/17 08:59 Last Admin: 09/20/17 08:59 Dose: 5 mg Mirtazapine (Remeron) 7.5 mg PO HS [facility]; Protocol Stop: 11/17/17 20:59 Last Admin: 09/19/17 23:20 Dose: Not Given Miscellaneous (Vancomycin Iv Per Pharmacy) 1 ea MC PRN [facility] Stop: 11/17/17 13:59 Morphine Sulfate (Morphine) 1 mg IVP Q4HR PRN PRN Reason: moderate to severe pain Stop: 11/16/17 20:20 Last Admin: 09/17/17 21:09 Dose: 1 mg Neomycin/Polymyxin/Bacitracin (Triple Antibiotic Pkt) 1 pkt TP DAILY [facility] Stop: 11/16/17 20:44 Last Admin: 09/20/17 08:58 Dose: 1 pkt Ondansetron HCl (Zofran) 4 mg IV Q4H PRN PRN Reason: Nausea / Vomiting Stop: 11/16/17 20:21 General: No acute distress HEENT: Atraumatic Neck: Supple Cardiovascular: Regular rate Lungs: Clear to auscultation Abdomen: Bowel sounds Skin: Rash Assessment/Plan - Problem List Patient Problems: All Active Problems SWOLLEN FEET WITH SKIN LESIONS (Acute) - Plan Plan: cpm Nutritional Asmnt/Malnutr-PDOC - Dietary Evaluation Malnutrition Findings (Please click <Entered> for more info): Nutritional Asmnt/Malnutrition Start: 09/18/17 15: 00 Text: Status: Complete Freq: Protocol: Document 09/18/17 15:27 LCHENG (Rec: 09/18/17 15:54 [email or web address] [email or web address]) Nutritional Asmnt/Malnutrition Patient General Information Nutritional Screening Moderate Risk Diagnosis hyponatremia, elevated lactic Pertinent Medical Hx/Surgical Hx CHF Subjective Information Consult received for initial glucose 188. Pt seen lying in bed at time of visit, drowsy. Per RN, pt did not have breakfast d/t sleepy in the morning. Per EMR, pt consumed 75% of dinner last night. Current Diet Order/ Nutrition Support [facility] Pertinent Medications colace, lasix, novolog, vancomycin Pertinent Labs 09/18 Na 129, Cl 96, Cr 0.5, glucose 133, POC 131 09/17 Na 130, Cl 94, glucose 188, POC 208, A1c 7.8 Nutritional Hx/Data Height 1.65 m Height (Calculated Centimeters) 165.1 Current Weight (lbs) 62.142 kg Weight (Calculated Kilograms) 62.1 Weight (Calculated Grams) 88862.2 [place] Body Weight 115 Body Mass Index (BMI) 22.8 Weight Status Approriate GI Symptoms GI Symptoms None Last BM 09/18 Difficult in: None Skin Integrity/Comment: laceration to right arm, leg, buttocks, back Current %PO Good (75-100%) Estimated Nutritional Goals BEE in Kcals: Using Current wt Calories/Kcals/Kg 25-30 Kcals Calculated 4669-7805 Protein: Using Current wt Protein g/k.8-1 Protein Calculated 50-62 Fluid: ml 1550-1860ml (1ml/kcal) Nutritional Problem 1. Problem Problem altered nutrition related labs Etiology electrolytes imbalance, hx of DM Signs/Symptoms: Na 129, glucose 133-188, POC 131-208, A1c 7.8 Malnutrition Alert Is there a minimum of two criteria No selected? Query Text:Check all the applicable criteria. A minimum of two criteria are recommended for diagnosis of either severe or non-severe malnutrition. Malnutrition Related to Morbid Obesity Malnutrition related to morbid obesity No Intervention/Recommendation Comments 1. Continue with [facility] diet as ordered. Feed assist with meals as needed. 2. Monitor PO intake, wt, labs and skin integrity 3. F/U as moderate risk in 7 days, 09/21-09/23 Expected Outcomes/Goals Expected Outcomes/Goals 1. PO intake to meet at least 75% of nutritional needs. 2. Wt stability, skin to remain intact, labs to approach WNL.
[2017-09-21 08:19] LABS: % BASOPHILS 0.4 % (0.0-2.0); % EOSINOPHILS 2.1 % (0.0-5.0); % LYMPHOCYTES 38.3 % (20.0-50.0); % MONOCYTES 11.1 % (2.0-10.0); % NEUTROPHILS 48.1 % (40.0-80.0); EOSINOPHILE ABSOLUTE 0.2 Th/cmm (0.1-0.4); HEMATOCRIT 50.4 % (41.0-60); HEMOGLOBIN 16.4 gm/dL (12-16); LYMPHOCYTE ABSOLUTE 2.8 Th/cmm (1.5-3.0); MEAN CELL VOLUME 74.9 fl (81-100); MEAN CORPUSCULAR HEMOGLOBIN 24.4 pg (27.0-31.0); MEAN CORPUSCULAR HGB CONC 32.6 pg (28.0-36.0); MEAN PLATELET VOLUME 7.1 fl; MONOCYTE ABSOLUTE 0.8 Th/cmm (0.3-1.0); NEUTROPHILE ABSOLUTE 3.5 Th/cmm (1.8-8.0); PLATELET COUNT 254 Th/cmm (150-400); RED BLOOD COUNT 6.73 Mil/cmm (3.80-5.20); WHITE BLOOD COUNT 7.3 Th/cmm (4.8-10.8)
[2017-09-21 08:32] LABS: ANION GAP 11.8 (7.0-16.0); BUN - UREA NITROGEN 23 mg/dL (7-25); CALCIUM SERUM 9.2 mg/dL (8.6-10.3); CARBON DIOXIDE 33.6 mEq/L (21.0-31.0); CHLORIDE 87 mEq/L (98-107); CREATININE - SERUM 0.7 mg/dL (0.6-1.2); GLUCOSE 83 mg/dL (70-105); POTASSIUM SERUM 3.4 mEq/L (3.5-5.1); SODIUM SERUM 129 mEq/L (136-145)
[2017-09-21] MEDS: INSULIN ASPART SLIDING SCALE 100 UNITS/ML UNIT SUBQ SCH ×4 (09:07→21:26)
[2017-09-21] MEDS: Metolazone 5 MG TAB PO SCH ×2 (09:26→17:13)
[2017-09-21] MEDS: Triple Antibiotic 0.94 gm Pkt TP SCH (09:27)
[2017-09-21] MEDS: Multivitamin w/ Minerals Tab PO SCH (09:27)
--- NOTE | 2017-09-21 10:05 | Progress Notes ---
DATE: PSYCHIATRIC PROGRESS NOTE SUBJECTIVE: Chart reviewed and the patient interviewed. Also discussed the patient's condition with the staff and reviewed records and labs. The patient is still easily agitated and she is still confused. The patient during my interview was unable to answer most of my questions coherently. She kept playing with the bedsheet and she was continuously preoccupied with it. The patient also was complaining of "feeling bad." Otherwise, the patient was continued to comply with taking her medications with no side effects of Depakote or of the Remeron. ASSESSMENT: The patient is still psychotic and confused. TREATMENT PLAN: We will continue to monitor her behavior and her condition closely. Also, we will order Depakote blood level. Also, we will continue to work on her irritability and restlessness and will continue to follow up. [facility]# [id number]
[2017-09-21] MEDS ORDERED: Potassium Chloride 20 mEq ER Tab PO ONE (11:54)
== END 2017-09-21 20:40 | DRG 871 ==
LOC: ER 13:18 → TELE 15:37 → MSI 09-21 17:24
PROVIDERS: ADMIT Internal Medicine; ATTEND Internal Medicine
DX: A41.9 Sepsis, unspecified organism (principal); E11.00 Type 2 diabetes mellitus with hyperosmolarity without nonketotic hyperglycemic-hyperosmolar coma (NKHHC); E43 Unspecified severe protein-calorie malnutrition; I50.23 Acute on chronic systolic (congestive) heart failure; I42.9 Cardiomyopathy, unspecified; E87.1 Hypo-osmolality and hyponatremia; B86 Scabies; F29 Unspecified psychosis not due to a substance or known physiological condition; F03.90 Unspecified dementia, unspecified severity, without behavioral disturbance, psychotic disturbance, mood disturbance, and anxiety; M81.0 Age-related osteoporosis without current pathological fracture; D50.9 Iron deficiency anemia, unspecified; L98.499 Non-pressure chronic ulcer of skin of other sites with unspecified severity; E86.0 Dehydration; F31.9 Bipolar disorder, unspecified; L98.9 Disorder of the skin and subcutaneous tissue, unspecified; Z88.8 Allergy status to other drugs, medicaments and biological substances; Z68.20 Body mass index [BMI] 20.0-20.9, adult
CPT/HCPCS: 36415-UA; 71045-TC; 80048-TC; 80053-TC; 80061-TC; 80164-TC; 80202-TC; 82948-90; 83036-90; 83605; 83880-TC; 84443-TC; 85025-TC; 85610-TC; 87070-90; 93005; J0696; J1815; J1940; J2060; J2270; J3370; J7030; Z7610

== ENCOUNTER 2018-02-14 13:22 | Inpatient (IN) | payer MEDICARE, MEDICAID ==
--- NOTE | 2018-02-14 14:05 | ED Physician Chart ---
ED Chief Complaint/HPI - Patient Information Date Seen:: 02/14/18 Time Seen:: 13:55 Chief Complaint:: Agitation History of Present Illness:: onset x 3 days of agitation and hostile behavior; no report of trauma, SIs, H/As , S/T, neck pain, cough, C/P, SOB, Abd. Pain, A/N/V/D/C, fever, chills, or urinary s/s Allergies:: Allergies Allergy/AdvReac Type Severity Reaction Status Date / Time No Known Allergies Allergy Verified 02/14/18 13:51 Historian:: Patient, EMS Review:: Nurse's Note Reviewed, Old Chart Reviewed, EMS run form Reviewed ED Review of Systems - Review of Systems General/Constitutional: No fever, No chills, No weight loss, No weakness, No diaphoresis, No edema, No loss of appetite Skin: No skin lesions, No rash, No bruising Head: No headache, No light-headedness Eyes: No loss of vision, No pain, No diplopia ENT: No earache, No nasal drainage, No sore throat, No tinnitus Neck: No neck pain, No swelling, No thyromegaly, No stiffness, No mass noted Cardio Vascular: No chest pain, No palpitations, No PND, No orthopnea, No edema Pulmonary: No SOB, No cough, No sputum, No wheezing GI: No nausea, No vomiting, No diarrhea, No pain, No melena, No hematochezia, No constipation, No hematemesis G/U: No dysuria, No frequency, No hematuria, No nacturia Musculoskeletal: No bone or joint pain, No back pain, No muscle pain Endocrine: No polyuria, No polydipsia Psychiatric: Prior psych history, Depression, Anxiety, No suicidal ideation, No homicidal ideation, No auditory hallucination, No visual hallucination Hematopoietic: No bruising, No lymphadenopathy Allergic/Immuno: No urticaria, No angioedema Neurological: No syncope, No focal symptoms, No weakness, No paresthesia, No headache, No seizure, No dizziness, Confusion, No vertigo ED Past Medical History - Past Medical History Obtainable: Yes Past Medical History: HTN, DM, CHF, Dementia Family History: Diabetes Melitus, HTN Social History: Non Smoker, No Alcohol, No Drug Use, Single, Care Facility Surgical History: None Psychiatricy History: Bipolar, Dementia Medication: Reviewed Family Medical History - Family Member Mother History Unknown: Yes ED Physical Exam - Physical Examination General/Constitutional: Awake, Well-developed, well-nourished, Alert, No distress, GCS 15, Non-toxic appearing, Ambulatory Head: Atraumatic Eyes: Lids, conjuctiva normal, PERRL, EOMI Skin: Nl inspection, No rash, No skin lesions, No ecchymosis, Well hydrated, No lymphadenopathy ENMT: External ears, nose nl, TM canals nl, Nasal exam nl, Lips, teeth, gums nl , Oropharynx nl, Tonsils nl Neck: Nontender, Full ROM w/o pain, No JVD, No nuchal rigidity, No bruit, No mass, No stridor Respiratory: Nl effort/Exclusion, Clear to Auscultation, No Wheeze/Rhonchi/Rales Cardio Vascular: RRR, No murmur, gallop, rubs, NL S1 S2, Carotid/Femoral/Distal pulses equal bilaterally GI: No tenderness/rebounding/guarding, No organomegaly, No hernia, Normal BS's, Nondistended, No mass/bruits, No McBurney tenderness Other GI comments:: no pulsatile masses : No CVA tenderness Extremities: No tenderness or effusion, Full ROM, normal strength in all extremities, No edema, Normal digits & nails Neuro/Psych: Alert/oriented, DTR's symmetric, Normal sensory exam, Normal motor strength, Judgement/insight normal, Mood normal, Normal gait, No focal deficits Other Neuro/Psych comments:: + Psychomotor Agitation; no SIs; Mood/Affect: Labile Misc: Normal back, No paraspinal tenderness ED Labs/Radiology/EKG Results - Lab Results Comments:: deferred by pt - Radiology Results Comments:: deferred by pt - EKG Interpretations Comments:: deferred by pt ED Septic Shock - . Is Septic Shock (SBP<90, OR Lactate>4 mmol\L) present?: No ED Reassessment (Disposition) - Reassessment Reassessment Condition:: Improved - Diagnosis Diagnosis:: Agitation; Medical Clearance; Psychosis; Bipolar Disorder - Aftercare/Follow up Instructions Aftercare/Follow-Up Instructions:: Counseled pt regarding lab results/diagnosis & need follow up, Counseled pt & family regarding lab results/diagnosis & need follow up - Patient Disposition Discharge/Transfer:: Acute Care w/in this hosp Admitted to:: [facility] Condition at Disposition:: Stable, Improved
[2018-02-14 21:15] VITALS: BP 00/00
[2018-02-14] MEDS ORDERED: Magnesium Hydroxide (MOM) 30 mL UDC PO PRN ×2 (21:16→21:42)
[2018-02-14] MEDS ORDERED: Maalox 30 mL Cup PO PRN (21:16)
[2018-02-14] MEDS ORDERED: Acetaminophen 500 MG TAB PO PRN (21:42)
[2018-02-15] MEDS: Calcium Carb/Vit D 500 mg/200 U Tab PO SCH (08:01)
[2018-02-15] MEDS: Multivitamin w/ Minerals Tab PO SCH (08:02)
[2018-02-15] MEDS ORDERED: Multivitamin Tab PO SCH (09:00)
[2018-02-15] MEDS ORDERED: CRANBERRY 900 MG PO SCH (09:00)
--- NOTE | 2018-02-15 09:43 | Psychiatric Evaluation ---
DATE OF SERVICE: 02/15/2018 JUSTIFICATION FOR HOSPITALIZATION: Agitation hostile behavior. 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 PAST PSYCHIATRIC HISTORY: Dementia and bipolar per documentation. FAMILY HISTORY: Unclear, not answering. SOCIAL HISTORY: I asked the patient where she was born. She does not answer "go away." She has an address in [place]. It is unclear who she lives at this time. Unclear drugs, alcohol or tobacco. PAST MEDICAL HISTORY: Include dementia, cardiomyopathy, cardiomegaly, anemia. The patient demanding to be called OrangeSlyce, stating that her name is not as listed on the face sheet. MENTAL STATUS EXAMINATION: Stated age. Fair eye contact. Awake, alert, yelling, screaming, disoriented, stating her name is OrangeSlyce and that she owns the hospital, very aggressive, upset. The patient is apparently coming from [facility]. PROVISIONAL DIAGNOSES: Dementia, bipolar per history. Under medical, please see full H and P. ESTIMATED LENGTH OF STAY: 5-7 days. ASSESSMENT AND PLAN: The patient is delusional, grandiose. No overt SI or HI. Poor insight, poor judgment. Concerns about impulsivity. The patient requiring higher level of care, yelling, screaming. PLAN: We will adjust and titrate medications. Restart medications. TREATMENT PLAN: Includes group as well as milieu therapy. CONDITIONS FOR DISCHARGE: Improved mood, improved affect, better control of her psychotic and mood symptoms. JOB# [id number]
--- NOTE | 2018-02-16 08:24 | Progress Notes ---
DATE: 02/16/2018 The patient remains bizarre, odd ideations, states that she owns the hospital, not making any sense, talking very vaguely, mostly agitated, hostile toward staff, demanding, poor sleep, anxious, poorly oriented. When asked her where she is, she will answer me "do you know where you are, do you know where I am?" is what she asks me. Mostly in her room. ASSESSMENT: The patient remains symptomatic, bizarre, odd ideations. PLAN: We will continue to monitor. We will change Zyprexa dosing to nighttime. We will continue to monitor for any behavioral disturbances or agitation. JOB# [id number]
--- NOTE | 2018-02-16 08:47 | Internal Medicine Prog Note ---
Internal Medicine Subjective - Subjective Patient seen and examined:: chart reviewed Patient is:: awake, other (confused,anxious paranoid) Per staff patient has:: no adverse event Internal Medicine Objective - Physical Exam Vitals and I&O: Vital Signs Temp 98.2 F 02/14/18 13:56 Pulse 88 02/14/18 13:56 Resp 19 02/15/18 19:50 BP 00/00 02/15/18 17:02 Pulse Ox 92 02/14/18 13:56 Intake & Output 02/15/18 02/16/18 02/16/18 18:59 06:59 18:59 Intake Total 120 Balance 120 Intake: Oral 120 Other: # Voids 2 3 # Bowel Movements 0 Active Medications: Current Medications Acetaminophen (Tylenol) 650 mg PO Q4HR PRN PRN Reason: Mild Pain / Temp above 100 Stop: 04/15/18 21:15 Acetaminophen (Tylenol Extra Strength) 1,000 mg PO Q4HR PRN PRN Reason: Pain (Severe) Stop: 04/15/18 21:41 Al Hydrox/Mg Hydrox/Simethicone (Maalox) 30 ml PO Q4HR PRN PRN Reason: GI DISTRESS Stop: 04/15/18 21:15 Calcium/Vitamin D (Oscal W/Vitamin D) 1 tab PO DAILY [facility] Stop: 04/16/18 08:59 Last Admin: 02/15/18 08:01 Dose: Not Given Carvedilol (Coreg) 3.125 mg PO BID [facility] Stop: 04/16/18 08:59 Last Admin: 02/15/18 17:29 Dose: Not Given Divalproex Sodium (Depakote Dr) 250 mg PO BID [facility]; Protocol Stop: 04/16/18 08:59 Docusate Sodium (Colace) 100 mg PO DAILY [facility] Stop: 04/16/18 08:59 Last Admin: 02/15/18 08:02 Dose: Not Given Furosemide (Lasix) 40 mg PO DAILY [facility] Stop: 04/16/18 08:59 Last Admin: 02/15/18 08:02 Dose: Not Given Lisinopril (Zestril) 5 mg PO DAILY [facility] Stop: 04/16/18 08:59 Last Admin: 02/15/18 09:08 Dose: Not Given Loratadine (Claritin) 10 mg PO DAILY PRN PRN Reason: Itching Stop: 04/15/18 21:41 Lorazepam (Ativan) 0.5 mg PO Q4HR PRN; Protocol PRN Reason: Anxiety Stop: 03/16/18 21:15 Magnesium Hydroxide (Milk Of Magnesia) 30 ml PO HS PRN PRN Reason: Constipation Stop: 04/15/18 21:41 Mirtazapine (Remeron) 15 mg PO HS [facility]; Protocol Stop: 04/16/18 20:59 Last Admin: 02/15/18 21:06 Dose: Not Given Olanzapine (Zyprexa) 10 mg PO HS [facility]; Protocol Stop: 04/17/18 20:59 Zolpidem Tartrate (Ambien) 5 mg PO HS PRN PRN Reason: Insomnia Stop: 04/15/18 21:15 General: demented HEENT: NC/AT Neck: Supple, No JVD Lungs: CTAB Cardiovascular: Normal S1, Normal S2 Abdomen: soft, non-tender Extremities: clear, edema Neurological: no change Internal Medicine Assmt/Plan - Assessment Assessment: psychosis agitation bipolar disease - Plan Plan: as per psych
[2018-02-16] MEDS: Calcium Carb/Vit D 500 mg/200 U Tab PO SCH (10:39)
[2018-02-16] MEDS: Multivitamin w/ Minerals Tab PO SCH (10:40)
[2018-02-17] MEDS: Calcium Carb/Vit D 500 mg/200 U Tab PO SCH (08:46)
[2018-02-17] MEDS: Multivitamin w/ Minerals Tab PO SCH (08:47)
--- NOTE | 2018-02-17 09:42 | History & Physical ---
ADMIT DATE: 02/14/2018 CHIEF COMPLAINT: Increase in agitation. HISTORY OF PRESENT ILLNESS: This is a 77-year-old female who was admitted from a [facility] to [facility] due to increase in agitation and aggressive behavior towards nursing staff. REVIEW OF SYSTEMS: GENERAL: This is a 77-year-old female that appears as stated. Denies fever. Denies weakness. HEAD: Denies headache. Denies dizziness. EYES: Denies eye pain. Denies blurring of vision. NECK: Denies neck pain. Denies nuchal rigidity. CHEST: No chest pain. Denies palpitation. PULMONARY: Denies coughing. Denies shortness of breath. GASTROINTESTINAL: Denies constipation, denies diarrhea, denies abdominal pain. MUSCULOSKELETAL: Denies muscle pain. Denies joint pain. SOCIAL HISTORY: The patient lives in a [facility] facility prior to hospitalization. PSYCHIATRIC HISTORY: Includes dementia. PAST SURGICAL HISTORY: Unremarkable. FAMILY HISTORY: Unremarkable. PAST MEDICAL HISTORY: Hypertension, osteoarthritis. PHYSICAL EXAMINATION: GENERAL: This is a 77-year-old female that appears as stated in no acute distress. HEENT: Head is atraumatic, normocephalic. Eyes: Bilateral conjunctivae are clear. Bilateral pupils are equally round and reactive. NECK: Supple. No JVD. CARDIOVASCULAR: S1 and S2, without murmur. PULMONARY: Clear to auscultation. GASTROINTESTINAL: Soft and nontender without guarding. Positive bowel sounds. MUSCULOSKELETAL: No clubbing. No cyanosis noted. ASSESSMENT: 1. Dementia. 2. Hypertension. 3. Osteoarthritis. PLAN: We will admit the patient to inpatient Psychiatric Unit. We will follow up with a psychiatrist to monitor the patient's condition and behavior. We will do medication reconciliation accordingly. Treatment plans were discussed with the patient's nurse. Treatment plans were discussed with Dr. Williamson. JOB# [id number]
--- NOTE | 2018-02-17 20:07 | Progress Notes ---
DATE: 02/17/2018 SUBJECTIVE: Chart reviewed and the patient interviewed. Also, discussed the patient's condition with the staff and reviewed records and labs. The patient continued to be agitated and she is still restless and in irritable mood. The patient also still has difficulty with directions and she is still confused. The patient also is yelling at other patients' and also has been refusing to take medications. She also has been confused. Otherwise, the patient is easier to redirect her, but she is still acting bizarre. ASSESSMENT: The patient is still agitated and psychotic. TREATMENT PLAN: Encouraged the patient to take Depakote and continue Depakote 250 mg twice a day and also continue Zyprexa and Remeron and continue to follow up. [facility]# [id number]
[2018-02-18] MEDS: Calcium Carb/Vit D 500 mg/200 U Tab PO SCH (09:47)
[2018-02-18] MEDS: Multivitamin w/ Minerals Tab PO SCH (09:48)
--- NOTE | 2018-02-18 11:31 | Internal Medicine Prog Note ---
Internal Medicine Subjective - Subjective Patient seen and examined:: chart reviewed Patient is:: awake, other (paranoid, confused irritable ) Per staff patient has:: no adverse event Internal Medicine Objective - Physical Exam Vitals and I&O: Vital Signs Temp 0 F 02/17/18 06:12 Pulse 88 02/14/18 13:56 Resp 19 02/15/18 19:50 BP 00/00 02/15/18 17:02 Pulse Ox 92 02/14/18 13:56 Intake & Output 02/17/18 02/18/18 02/18/18 18:59 06:59 18:59 Intake Total 480 Balance 480 Intake: Oral 480 Other: # Voids 5 2 Active Medications: Current Medications Acetaminophen (Tylenol) 650 mg PO Q4HR PRN PRN Reason: Mild Pain / Temp above 100 Stop: 04/15/18 21:15 Acetaminophen (Tylenol Extra Strength) 1,000 mg PO Q4HR PRN PRN Reason: Pain (Severe) Stop: 04/15/18 21:41 Al Hydrox/Mg Hydrox/Simethicone (Maalox) 30 ml PO Q4HR PRN PRN Reason: GI DISTRESS Stop: 04/15/18 21:15 Calcium/Vitamin D (Oscal W/Vitamin D) 1 tab PO DAILY [facility] Stop: 04/16/18 08:59 Last Admin: 02/18/18 09:47 Dose: Not Given Carvedilol (Coreg) 3.125 mg PO BID [facility] Stop: 04/16/18 08:59 Last Admin: 02/18/18 09:47 Dose: Not Given Divalproex Sodium (Depakote Dr) 250 mg PO BID [facility]; Protocol Stop: 04/16/18 08:59 Last Admin: 02/18/18 09:47 Dose: Not Given Docusate Sodium (Colace) 100 mg PO DAILY [facility] Stop: 04/16/18 08:59 Last Admin: 02/18/18 09:47 Dose: Not Given Furosemide (Lasix) 40 mg PO DAILY [facility] Stop: 04/16/18 08:59 Last Admin: 02/18/18 09:47 Dose: Not Given Lisinopril (Zestril) 5 mg PO DAILY [facility] Stop: 04/16/18 08:59 Last Admin: 02/18/18 09:48 Dose: Not Given Loratadine (Claritin) 10 mg PO DAILY PRN PRN Reason: Itching Stop: 04/15/18 21:41 Lorazepam (Ativan) 0.5 mg PO Q4HR PRN; Protocol PRN Reason: Anxiety Stop: 03/16/18 21:15 Magnesium Hydroxide (Milk Of Magnesia) 30 ml PO HS PRN PRN Reason: Constipation Stop: 04/15/18 21:41 Mirtazapine (Remeron) 15 mg PO HS [facility]; Protocol Stop: 04/16/18 20:59 Last Admin: 02/17/18 21:36 Dose: Not Given Olanzapine (Zyprexa) 10 mg PO HS [facility]; Protocol Stop: 04/17/18 20:59 Last Admin: 02/17/18 21:37 Dose: Not Given Zolpidem Tartrate (Ambien) 5 mg PO HS PRN PRN Reason: Insomnia Stop: 04/15/18 21:15 General: demented HEENT: NC/AT Neck: Supple, No JVD Lungs: CTAB Cardiovascular: Normal S1, Normal S2 Abdomen: soft, non-tender Extremities: clear, edema Neurological: no change Internal Medicine Assmt/Plan - Assessment Assessment: psychosis agitation bipolar disease - Plan Plan: as per psych Nutritional Asmnt/Malnutr-PDOC - Dietary Evaluation Malnutrition Findings (Please click <Entered> for more info): Nutritional Asmnt/Malnutrition Start: 02/16/18 11: 14 Text: Status: Complete Freq: Protocol: Document 02/16/18 11:14 LCHENG (Rec: 02/16/18 11:19 LCHENG [email or web address]) Nutritional Asmnt/Malnutrition Patient General Information Nutritional Screening Moderate Risk Diagnosis psychosis Pertinent Medical Hx/Surgical Hx HTN, DM, CHF, dementia, bipolar Subjective Information Pt seen sitting on her bed at time of visit, awake and alert , refused to talk with RD. Per EMR, PO intake 100% since admitted. Current Diet Order/ Nutrition Support CCHO 60gm, CALI Pertinent Medications oscal w/vit D, colace, lasix, remeron Pertinent Labs no labs available Nutritional Hx/Data Height 1.73 m Height (Calculated Centimeters) 172.7 Current Weight (lbs) 54.431 kg Weight (Calculated Kilograms) 54.4 Weight (Calculated Grams) 08195.1 [place] Body Weight 140 Body Mass Index (BMI) 18.2 Weight Status Underweight GI Symptoms GI Symptoms None Last BM none noted Difficult in: None Skin Integrity/Comment: fredy Coronado Estimated Nutritional Goals BEE in Kcals: Using Current wt Calories/Kcals/Kg 27-32 Kcals Calculated 9423-3603 Protein: Using Current wt Protein g/k-1.2 Protein Calculated 55-66 Fluid: ml 1485-1760ml (1ml/kcal) Nutritional Problem No current Nutrition Prob Problem N/A Intervention/Recommendation Comments 1. Continue with [facility] 60gm CALI diet as ordered. 2. Monitor PO intake, wt, labs and skin integrity 3. F/U as low risk in 7 days, 02/23 Expected Outcomes/Goals Expected Outcomes/Goals 1. PO intake to meet at least 75% of nutritional needs. 2. Wt stability, skin to remain intact, labs to approach WNL.
--- NOTE | 2018-02-18 18:16 | Progress Notes ---
DATE: 02/18/2018 PSYCHIATRIC PROGRESS NOTE SUBJECTIVE: Chart reviewed and the patient interviewed. Also discussed the patient's condition with the staff and reviewed records and labs. The patient is still easily agitated and she is still argumentative. The patient also is still yelling and screaming at other patients and at staff. She also is still refusing to take medications. The patient also today is telling me that I am not a doctor and later on when she saw my ID she told me that "my legs hurt and was trying to show me bruises in her leg." She also is still easily irritable and agitated. She was refusing to take any medication in spite of my trying to explain to her about the importance of taking medications, but she has still refused to take medications. She also at times seems to be confused. ASSESSMENT: The patient is still agitated and confused. TREATMENT PLAN: Continue to monitor her behavior closely. Also, continue to adjust working on her compliance of medications and continue to follow up. [facility]# [id number]
[2018-02-19] MEDS: Multivitamin w/ Minerals Tab PO SCH (17:29)
[2018-02-19] MEDS: Calcium Carb/Vit D 500 mg/200 U Tab PO SCH (17:29)
--- NOTE | 2018-02-20 00:40 | Progress Notes ---
DATE: 02/19/2018 SUBJECTIVE: Case was discussed with staff of the patient. This is a 77-year-old female who has been agitated, admitted on 02/15/2018. She was hostile, upset, and angry. She does not want to talk. She said she does not a psychiatrist, I am not crazy. She has rambling speech, hostile, and telling the psychiatrist to go away. With a history of dementia, bipolar disorder, unable to answer questions appropriately. The patient continues to be argumentative, yelling, and screaming. She is unable to make safe plan for her self-care. She refused actually to answer any of my questions. She is talking to herself. She is easily irritable as discussed by the staff, hard to redirect, standing in the room and not wanting to talk to anybody. PLAN: She is on Depakote 250 mg twice a day, Remeron 15 mg at bedtime, and olanzapine 10 mg at bedtime with no side effects, no sedation, no nausea, and no extrapyramidal symptoms. We will continue to have the patient in group therapy, milieu therapy, and adjust medications as needed. JOB# [id number]
--- NOTE | 2018-02-20 14:02 | Internal Medicine Prog Note ---
Internal Medicine Subjective - Subjective Service Date: 02/20/18 Patient is:: awake, other (paranoid, confused irritable ) Per staff patient has:: no adverse event Internal Medicine Objective - Physical Exam Vitals and I&O: Vital Signs Temp 0 F 02/20/18 06:10 Pulse 88 02/14/18 13:56 Resp 19 02/15/18 19:50 BP 00/00 02/15/18 17:02 Pulse Ox 92 02/14/18 13:56 Intake & Output 02/19/18 02/20/18 02/20/18 18:59 06:59 18:59 Intake Total 950 120 Balance 950 120 Weight (lbs) 120 lb Intake: Oral 950 120 Other: # Voids 4 3 # Bowel Movements 1 0 Weight Source Bedscale Active Medications: Current Medications Acetaminophen (Tylenol) 650 mg PO Q4HR PRN PRN Reason: Mild Pain / Temp above 100 Stop: 04/15/18 21:15 Acetaminophen (Tylenol Extra Strength) 1,000 mg PO Q4HR PRN PRN Reason: Pain (Severe) Stop: 04/15/18 21:41 Al Hydrox/Mg Hydrox/Simethicone (Maalox) 30 ml PO Q4HR PRN PRN Reason: GI DISTRESS Stop: 04/15/18 21:15 Calcium/Vitamin D (Oscal W/Vitamin D) 1 tab PO DAILY [facility] Stop: 04/16/18 08:59 Last Admin: 02/19/18 17:29 Dose: Not Given Carvedilol (Coreg) 3.125 mg PO BID [facility] Stop: 04/16/18 08:59 Last Admin: 02/19/18 17:29 Dose: Not Given Divalproex Sodium (Depakote Dr) 250 mg PO BID [facility]; Protocol Stop: 04/16/18 08:59 Last Admin: 02/19/18 17:29 Dose: Not Given Docusate Sodium (Colace) 100 mg PO DAILY [facility] Stop: 04/16/18 08:59 Last Admin: 02/19/18 17:29 Dose: Not Given Furosemide (Lasix) 40 mg PO DAILY [facility] Stop: 04/16/18 08:59 Last Admin: 02/19/18 17:29 Dose: Not Given Lisinopril (Zestril) 5 mg PO DAILY [facility] Stop: 04/16/18 08:59 Last Admin: 02/19/18 17:29 Dose: Not Given Loratadine (Claritin) 10 mg PO DAILY PRN PRN Reason: Itching Stop: 04/15/18 21:41 Lorazepam (Ativan) 0.5 mg PO Q4HR PRN; Protocol PRN Reason: Anxiety Stop: 03/16/18 21:15 Magnesium Hydroxide (Milk Of Magnesia) 30 ml PO HS PRN PRN Reason: Constipation Stop: 04/15/18 21:41 Mirtazapine (Remeron) 15 mg PO HS [facility]; Protocol Stop: 04/16/18 20:59 Last Admin: 02/19/18 21:11 Dose: Not Given Olanzapine (Zyprexa) 10 mg PO HS [facility]; Protocol Stop: 04/17/18 20:59 Last Admin: 02/19/18 21:11 Dose: Not Given Zolpidem Tartrate (Ambien) 5 mg PO HS PRN PRN Reason: Insomnia Stop: 04/15/18 21:15 General: demented HEENT: NC/AT Neck: Supple, No JVD Lungs: CTAB Cardiovascular: Normal S1, Normal S2 Abdomen: soft, non-tender Extremities: clear, edema Neurological: no change Internal Medicine Assmt/Plan - Assessment Assessment: psychosis agitation bipolar disease - Plan Plan: cpm Nutritional Asmnt/Malnutr-PDOC - Dietary Evaluation Malnutrition Findings (Please click <Entered> for more info): Nutritional Asmnt/Malnutrition Start: 02/16/18 11: 14 Text: Status: Complete Freq: Protocol: Document 02/16/18 11:14 LCHENG (Rec: 02/16/18 11:19 ROHAN [email or web address]) Nutritional Asmnt/Malnutrition Patient General Information Nutritional Screening Moderate Risk Diagnosis psychosis Pertinent Medical Hx/Surgical Hx HTN, DM, CHF, dementia, bipolar Subjective Information Pt seen sitting on her bed at time of visit, awake and alert , refused to talk with RD. Per EMR, PO intake 100% since admitted. Current Diet Order/ Nutrition Support CCHO 60gm, CALI Pertinent Medications oscal w/vit D, colace, lasix, remeron Pertinent Labs no labs available Nutritional Hx/Data Height 5 ft 8 in Height (Calculated Centimeters) 172.7 Current Weight (lbs) 120 lb Weight (Calculated Kilograms) 54.4 Weight (Calculated Grams) 89963.1 [place] Body Weight 140 Body Mass Index (BMI) 18.2 Weight Status Underweight GI Symptoms GI Symptoms None Last BM none noted Difficult in: None Skin Integrity/Comment: fredy Coronado Estimated Nutritional Goals BEE in Kcals: Using Current wt Calories/Kcals/Kg 27-32 Kcals Calculated 8563-4313 Protein: Using Current wt Protein g/k-1.2 Protein Calculated 55-66 Fluid: ml 1485-1760ml (1ml/kcal) Nutritional Problem No current Nutrition Prob Problem N/A Intervention/Recommendation Comments 1. Continue with [facility] 60gm CALI diet as ordered. 2. Monitor PO intake, wt, labs and skin integrity 3. F/U as low risk in 7 days, 02/23 Expected Outcomes/Goals Expected Outcomes/Goals 1. PO intake to meet at least 75% of nutritional needs. 2. Wt stability, skin to remain intact, labs to approach WNL.
[2018-02-20] MEDS: Calcium Carb/Vit D 500 mg/200 U Tab PO SCH (14:08)
[2018-02-20] MEDS: Multivitamin w/ Minerals Tab PO SCH (14:12)
--- NOTE | 2018-02-20 23:42 | Progress Notes ---
DATE: 02/20/2018 SUBJECTIVE: Case was discussed with staff of the patient, reviewed records. Covering for Dr. Eastman. The patient tends to be very ____ angry, rambling speech, resistant to any interview. Looking disheveled, disorganized, internally preoccupied with a history of dementia, bipolar disorder, unable to participate in meaningful conversation, angry, does not want to talk to anybody. No side effects with the medication, no sedation, no nausea, no extrapyramidal symptoms. We will continue to work with the patient in group therapy, milieu therapy, adjust medication as needed. JOB# [id number]
[2018-02-21] MEDS: Calcium Carb/Vit D 500 mg/200 U Tab PO SCH (08:13)
[2018-02-21] MEDS: Multivitamin w/ Minerals Tab PO SCH (08:15)
--- NOTE | 2018-02-21 14:48 | Internal Medicine Prog Note ---
Internal Medicine Subjective - Subjective Service Date: 02/21/18 Patient is:: awake, other (paranoid, confused irritable ) Per staff patient has:: no adverse event Internal Medicine Objective - Physical Exam Vitals and I&O: Vital Signs Temp 0 F 02/20/18 19:55 Pulse 0 02/21/18 08:15 Resp 19 02/15/18 19:50 BP 0/0 02/21/18 08:15 Pulse Ox 92 02/14/18 13:56 Intake & Output 02/20/18 02/21/18 02/21/18 18:59 06:59 18:59 Intake Total 1600 420 Balance 1600 420 Weight (lbs) 120 lb Intake: Oral 1600 420 Other: # Voids 4 2 # Bowel Movements 1 1 Weight Source Bedscale Active Medications: Current Medications Acetaminophen (Tylenol) 650 mg PO Q4HR PRN PRN Reason: Mild Pain / Temp above 100 Stop: 04/15/18 21:15 Acetaminophen (Tylenol Extra Strength) 1,000 mg PO Q4HR PRN PRN Reason: Pain (Severe) Stop: 04/15/18 21:41 Al Hydrox/Mg Hydrox/Simethicone (Maalox) 30 ml PO Q4HR PRN PRN Reason: GI DISTRESS Stop: 04/15/18 21:15 Calcium/Vitamin D (Oscal W/Vitamin D) 1 tab PO DAILY [facility] Stop: 04/16/18 08:59 Last Admin: 02/21/18 08:13 Dose: Not Given Carvedilol (Coreg) 3.125 mg PO BID [facility] Stop: 04/16/18 08:59 Last Admin: 02/21/18 08:09 Dose: Not Given Divalproex Sodium (Depakote Dr) 250 mg PO BID [facility]; Protocol Stop: 04/16/18 08:59 Last Admin: 02/21/18 08:11 Dose: Not Given Docusate Sodium (Colace) 100 mg PO DAILY [facility] Stop: 04/16/18 08:59 Last Admin: 02/21/18 08:13 Dose: Not Given Furosemide (Lasix) 40 mg PO DAILY [facility] Stop: 04/16/18 08:59 Last Admin: 02/21/18 08:14 Dose: Not Given Lisinopril (Zestril) 5 mg PO DAILY [facility] Stop: 04/16/18 08:59 Last Admin: 02/21/18 08:15 Dose: Not Given Loratadine (Claritin) 10 mg PO DAILY PRN PRN Reason: Itching Stop: 04/15/18 21:41 Lorazepam (Ativan) 0.5 mg PO Q4HR PRN; Protocol PRN Reason: Anxiety Stop: 03/16/18 21:15 Magnesium Hydroxide (Milk Of Magnesia) 30 ml PO HS PRN PRN Reason: Constipation Stop: 04/15/18 21:41 Mirtazapine (Remeron) 15 mg PO HS [facility]; Protocol Stop: 04/16/18 20:59 Last Admin: 02/20/18 20:51 Dose: Not Given Olanzapine (Zyprexa) 10 mg PO HS [facility]; Protocol Stop: 04/17/18 20:59 Zolpidem Tartrate (Ambien) 5 mg PO HS PRN PRN Reason: Insomnia Stop: 04/15/18 21:15 General: demented HEENT: NC/AT Neck: Supple, No JVD Lungs: CTAB Cardiovascular: Normal S1, Normal S2 Abdomen: soft, non-tender Extremities: clear, edema Neurological: no change Internal Medicine Assmt/Plan - Assessment Assessment: psychosis agitation bipolar disease - Plan Plan: cpm Nutritional Asmnt/Malnutr-PDOC - Dietary Evaluation Malnutrition Findings (Please click <Entered> for more info): Nutritional Asmnt/Malnutrition Start: 02/16/18 11: 14 Text: Status: Complete Freq: Protocol: Document 02/16/18 11:14 LCHENG (Rec: 02/16/18 11:19 LCИРИНАG [email or web address]) Nutritional Asmnt/Malnutrition Patient General Information Nutritional Screening Moderate Risk Diagnosis psychosis Pertinent Medical Hx/Surgical Hx HTN, DM, CHF, dementia, bipolar Subjective Information Pt seen sitting on her bed at time of visit, awake and alert , refused to talk with RD. Per EMR, PO intake 100% since admitted. Current Diet Order/ Nutrition Support CCHO 60gm, CALI Pertinent Medications oscal w/vit D, colace, lasix, remeron Pertinent Labs no labs available Nutritional Hx/Data Height 5 ft 8 in Height (Calculated Centimeters) 172.7 Current Weight (lbs) 120 lb Weight (Calculated Kilograms) 54.4 Weight (Calculated Grams) 70675.1 [place] Body Weight 140 Body Mass Index (BMI) 18.2 Weight Status Underweight GI Symptoms GI Symptoms None Last BM none noted Difficult in: None Skin Integrity/Comment: fredy Coronado Estimated Nutritional Goals BEE in Kcals: Using Current wt Calories/Kcals/Kg 27-32 Kcals Calculated 5195-0346 Protein: Using Current wt Protein g/k-1.2 Protein Calculated 55-66 Fluid: ml 1485-1760ml (1ml/kcal) Nutritional Problem No current Nutrition Prob Problem N/A Intervention/Recommendation Comments 1. Continue with [facility] 60gm CALI diet as ordered. 2. Monitor PO intake, wt, labs and skin integrity 3. F/U as low risk in 7 days, 02/23 Expected Outcomes/Goals Expected Outcomes/Goals 1. PO intake to meet at least 75% of nutritional needs. 2. Wt stability, skin to remain intact, labs to approach WNL.
--- NOTE | 2018-02-21 22:09 | Progress Notes ---
DATE: 02/21/2018 SUBJECTIVE: Case was discussed with staff of the patient and reviewed records. The patient continues to be very irritable, paranoid, continues to be hard to redirect, continues to be unpredictable and impulsive, needing redirection. No side effects with the medication, no sedation, no nausea, no extrapyramidal symptoms. We will continue with the patient in group and milieu therapy, and adjust medication as needed. JOB# [id number]
[2018-02-22] MEDS: Calcium Carb/Vit D 500 mg/200 U Tab PO SCH (09:20)
[2018-02-22] MEDS: Multivitamin w/ Minerals Tab PO SCH (09:23)
--- NOTE | 2018-02-22 13:05 | Progress Notes ---
DATE: 02/22/2018 SUBJECTIVE: Case was discussed with staff of the patient and reviewed records. The patient continues to be resistant to care; however, I discussed with Dr. Mckeon who already have participated in treating her and a few days ago, he saw her for a few days and he believed that maybe we just send her to a alf, tried to get her stabilized there, it would be better than keeping her here as she is demented, confused, very poor insight. The patient apparently came from ____, so I discussed with staff that it is not a good idea for her to go to a board and care. She needs to go to a nursing facility and they are going to work on it to go to a nursing facility and meanwhile, we will continue the patient in group therapy, milieu therapy, and adjust medication as needed. JOB# [id number]
[2018-02-22] MEDS: OLANZapine 5 mg Oral Disintegrating Tab PO SCH (20:58)
[2018-02-23] MEDS: Calcium Carb/Vit D 500 mg/200 U Tab PO SCH (10:01)
[2018-02-23] MEDS: Multivitamin w/ Minerals Tab PO SCH (10:02)
[2018-02-23] MEDS: OLANZapine 5 mg Oral Disintegrating Tab PO SCH (21:15)
--- NOTE | 2018-02-24 04:05 | Progress Notes ---
DATE: 02/23/2018 SUBJECTIVE: Case was discussed with staff of the patient, reviewed records. I changed the patient's medication yesterday to Zydis and liquid Depakote; however, the staff report she is not taking it. I talked to the pillowcase cleaner. The pillowcase cleaner said that her son has the power to give her medication; however, she has been leaving him messages and he is not calling back, so waiting for that to happen. However, the patient if left alone, she would not go out of her room because any disturbance ____ somebody come and talk to her, so I discussed with Dr. Mckeon and he recommended that after we get okay from her son maybe she can be discharged back to the facility. She lives in a nursing facility and she could be treated there. Assuming her son can give the support to do so and meanwhile we will continue to work with the patient in group therapy, milieu therapy, and adjust the medications as necessary. JOB# [id number]
[2018-02-24] MEDS: Calcium Carb/Vit D 500 mg/200 U Tab PO SCH (08:08)
[2018-02-24] MEDS: Multivitamin w/ Minerals Tab PO SCH (08:09)
[2018-02-24] MEDS: OLANZapine 5 mg Oral Disintegrating Tab PO SCH (21:12)
--- NOTE | 2018-02-25 04:33 | Progress Notes ---
DATE: The patient seen, chart reviewed, and discussed with staff. The patient currently wishes to be addressed as "Claudia Natacha." The patient is generally very suspicious, intrusive with extremely poor insight. The patient has been refusing all medications, so far has not required any p.r.n. medications. According to staff, the patient has been eating and sleeping without any issue. PLAN: The patient continues to be actively psychotic with very poor insight, so that she will require inpatient care center treatment. We will monitor the patient on a daily basis for response to treatment. We will continue psychoeducation as well as try to get in touch with her son who apparently has a power of learning officer over her. JOB# [id number]
--- NOTE | 2018-02-25 15:49 | Progress Notes ---
DATE: 02/25/2018 SUBJECTIVE: The patient was seen, chart reviewed, and findings were discussed with staff. The patient continues to insist to be addressed by her pseudo name, Claudia Manzano. She continues to be very suspicious, verbally aggressive and very paranoid, still refusing all medications, but has apparently been eating and sleeping well. PLAN: The patient continues to be actively psychotic with very poor insight. Unable to make a safe discharge plan. It was felt that she will require inpatient care facility treatment. We will monitor patient and continue psychoeducation. JOB# [id number]
[2018-02-25] MEDS: OLANZapine 5 mg Oral Disintegrating Tab PO SCH (20:43)
[2018-02-26] MEDS: Calcium Carb/Vit D 500 mg/200 U Tab PO SCH (18:38)
[2018-02-26] MEDS: Multivitamin w/ Minerals Tab PO SCH ×2 (18:39→18:40)
[2018-02-26] MEDS: Sulfamethoxazole/TMP 800/160mg Tab PO SCH (18:40)
[2018-02-26] MEDS: OLANZapine 10 mg Oral Disintegrating Tab PO SCH (20:45)
--- NOTE | 2018-02-27 01:27 | Progress Notes ---
DATE: 02/26/2018 SUBJECTIVE: The patient has developed some rash and erythema in lower legs. Per the patient he refusing all the antibiotic or medication. OBJECTIVE: VITAL SIGNS: Not available. The patient is refusing. HEENT: Head is normocephalic, atraumatic. Oral cavity moist, pink tongue. Eyes: No pallor, no icterus. PERRLA. NECK: Supple, no JVD. No use of extended courses. CHEST: Bilateral breath sounds. No crackles or wheezing. HEART: S1, S2 within normal limits. Regular rhythm. ABDOMEN: Soft, nontender, nondistended. Bowel sounds present. EXTREMITIES: Bilateral leg, the patient has a small crusted lesions on both lower extremities with surrounding erythema. She is also scratching some of the wounds and has some evidence of lateral bleeding. NEUROLOGIC: Alert, awake, oriented x 3. LABORATORY DATA: Not available. IMPRESSION: 1. Cellulitis of both legs. 2. Psychosis. 3. Agitation. RECOMMENDATION AND PLAN: We will start the patient on Bactrim and Levaquin. Bactroban cream, locally. JOB# [id number]
[2018-02-27] MEDS: Calcium Carb/Vit D 500 mg/200 U Tab PO SCH (08:15)
[2018-02-27] MEDS: Sulfamethoxazole/TMP 800/160mg Tab PO SCH (08:15)
[2018-02-27] MEDS: Multivitamin w/ Minerals Tab PO SCH (08:15)
--- NOTE | 2018-02-27 08:19 | Progress Notes ---
DATE: 02/26/2018 SUBJECTIVE: The patient bizarre, talking about high school diploma, yelling at me, screaming, talking that her name is Corrie Royal, still symptomatic, psychotic, delusional, grandiose, mostly in her room, screaming, yelling, nonsensical statements. ASSESSMENT: The patient remains symptomatic, bizarre, still grandiose, psychotic, unruly. PLAN: We will continue to monitor. I will be increasing her doses of Zyprexa today. JOB# [id number]
--- NOTE | 2018-02-27 20:27 | Progress Notes ---
DATE: 02/27/2018 The patient remains bizarre scratching her legs, refusing medications, still claiming her name is Corrie Royal. Ongoing symptoms, delusions, grandiosities, bizarre behaviors. Staff noting she continues to refuse treatment. Medications, resistive to care. Poorly oriented, talking about ____, the Lord, irritable. ASSESSMENT: The patient remains symptomatic, bizarre, psychotic, does not want to take medications, refusing medications. PLAN: We will initiate a [place] petition. We will monitor and follow up. JOB# [id number]
[2018-02-27] MEDS: OLANZapine 10 mg Oral Disintegrating Tab PO SCH (20:34)
--- NOTE | 2018-02-28 01:20 | Progress Notes ---
DATE: 02/27/2018 SUBJECTIVE: The patient lying in bed, no acute distress, no fever, no chills. OBJECTIVE: VITAL SIGNS: The patient is refusing to have her vitals. CHEST: Clear. HEART: S1, S2 within normal rate and rhythm. ABDOMEN: Soft, nontender, nondistended. Bowel sounds present. LABORATORY DATA: None. IMPRESSION: 1. Cellulitis of both legs. 2. Psychosis. 3. Agitation. RECOMMENDATION: Continue Bactrim and Levaquin. Bactroban cream locally. JOB# [id number] MTDD
[2018-02-28] MEDS: Calcium Carb/Vit D 500 mg/200 U Tab PO SCH (09:25)
[2018-02-28] MEDS: Sulfamethoxazole/TMP 800/160mg Tab PO SCH ×2 (09:25→16:51)
[2018-02-28] MEDS: Multivitamin w/ Minerals Tab PO SCH (09:26)
[2018-02-28] MEDS ORDERED: Probiotic Screen MC PRN (13:15)
--- NOTE | 2018-02-28 18:15 | Progress Notes ---
DATE: 02/28/2018 The patient still stating that her name is not Soledad. Still hyper-sikh, stating that she needs to meditate and cannot talk to me right now, "I am not a chicken." The patient remains irritable. States that she does not want nor needs to take medications, bizarre. She is eating on her own volition, stating her name is Corrie High Power, calling other people "low level human beings." Refusing medication, refusing treatment, refusing care. ASSESSMENT: The patient bizarre, psychotic, grandiose and unable to be cared for at a lower level of care given the severity of her current symptoms. Currently, we are pending a [place] hearing. JOB# [id number]
[2018-02-28] MEDS: OLANZapine 10 mg Oral Disintegrating Tab PO SCH (21:04)
[2018-03-01] MEDS: Lactobacillus Rhamnosus GG 15 Billion CFU CAP.SPRINK PO SCH (10:00)
[2018-03-01] MEDS: Sulfamethoxazole/TMP 800/160mg Tab PO SCH ×2 (10:00→16:44)
[2018-03-01] MEDS: Calcium Carb/Vit D 500 mg/200 U Tab PO SCH (10:00)
[2018-03-01] MEDS: Multivitamin w/ Minerals Tab PO SCH (10:00)
--- NOTE | 2018-03-01 17:24 | Infectious Disease Prog Note ---
Infectious Disease Subjective - Review of Systems Service Date: 03/01/18 Subjective: skin lesions are same as before, no change. Infectious Disease Objective - Physical Exam Vitals and I&O: Vital Signs Temp 97.5 F 03/01/18 14:00 Pulse 74 03/01/18 16:45 Resp 20 03/01/18 14:00 BP 113/78 03/01/18 16:45 Pulse Ox 96 03/01/18 14:00 Intake & Output 02/28/18 03/01/18 03/01/18 18:59 06:59 18:59 Intake Total 1200 120 Balance 1200 120 Intake: Oral 1200 120 Other: # Voids 3 # Bowel Movements 1 Active Medications: Current Medications Acetaminophen (Tylenol) 650 mg PO Q4HR PRN PRN Reason: Mild Pain / Temp above 100 Stop: 04/15/18 21:15 Acetaminophen (Tylenol Extra Strength) 1,000 mg PO Q4HR PRN PRN Reason: Pain (Severe) Stop: 04/15/18 21:41 Al Hydrox/Mg Hydrox/Simethicone (Maalox) 30 ml PO Q4HR PRN PRN Reason: GI DISTRESS Stop: 04/15/18 21:15 Calcium/Vitamin D (Oscal W/Vitamin D) 1 tab PO DAILY [facility] Stop: 04/16/18 08:59 Last Admin: 03/01/18 10:00 Dose: 1 tab Carvedilol (Coreg) 3.125 mg PO BID [facility] Stop: 04/16/18 08:59 Last Admin: 03/01/18 16:45 Dose: Not Given Docusate Sodium (Colace) 100 mg PO DAILY [facility] Stop: 04/16/18 08:59 Last Admin: 03/01/18 10:00 Dose: Not Given Furosemide (Lasix) 40 mg PO DAILY [facility] Stop: 04/16/18 08:59 Last Admin: 03/01/18 10:00 Dose: Not Given Lactobacillus Rhamnosus (Culturelle 15b) 1 each PO DAILY [facility] Stop: 04/30/18 08:59 Last Admin: 03/01/18 10:00 Dose: 1 each Levofloxacin (Levaquin) 250 mg PO DAILY [facility] Stop: 04/28/18 08:59 Last Admin: 03/01/18 10:28 Dose: 250 mg Lisinopril (Zestril) 5 mg PO DAILY [facility] Stop: 04/16/18 08:59 Last Admin: 03/01/18 10:33 Dose: Not Given Loratadine (Claritin) 10 mg PO DAILY PRN PRN Reason: Itching Stop: 04/15/18 21:41 Magnesium Hydroxide (Milk Of Magnesia) 30 ml PO HS PRN PRN Reason: Constipation Stop: 04/15/18 21:41 Mirtazapine (Remeron) 15 mg PO HS [facility]; Protocol Stop: 04/16/18 20:59 Last Admin: 02/28/18 21:04 Dose: 15 mg Miscellaneous (Probiotic Screen) 1 ea MC PRN PRN PRN Reason: PROTOCOL Stop: 04/29/18 13:14 Mupirocin (Bactroban Oint) 1 appl TP BID [facility] Stop: 04/27/18 16:59 Last Admin: 03/01/18 16:42 Dose: Not Given Risperidone (Risperdal) 0.5 mg PO BID [facility]; Protocol Stop: 04/30/18 16:59 Last Admin: 03/01/18 16:45 Dose: 0.5 mg Trimethoprim/Sulfamethoxazole (Bactrim Ds) 1 tab PO BID [facility] Stop: 04/27/18 16:59 Last Admin: 03/01/18 16:44 Dose: 1 tab Valproate Sodium (Depakene) 250 mg PO BID [facility]; Protocol Stop: 04/23/18 16:59 Last Admin: 03/01/18 10:00 Dose: 250 mg General: no acute distress, well developed, well nourished HEENT: atraumatic, normocephalic, PERRLA, EOMI Neck: supple, no thyromegaly Cardiovascular: S1S2, regular Lungs: clear to auscultation bilaterally, clear to percussion Abdomen: soft, no tender, no distended Extremities: no cyanosis, no clubbing, no edema Neurological: awake, alert, oriented Skin: rash, other (wounds in the legs) Infectious Disease Assmt/Plan - Assessment Assessment: agitation Psychosis cellulitis of legs. - Plan Plan: CPM. patient is non compliant, so hard to treat her condition. Nutritional Asmnt/Malnutr-PDOC - Dietary Evaluation Malnutrition Findings (Please click <Entered> for more info): Nutritional Asmnt/Malnutrition Start: 02/16/18 11: 14 Text: Status: Complete Freq: Protocol: Document 02/16/18 11:14 LCHENG (Rec: 02/16/18 11:19 LCHENG [email or web address]) Nutritional Asmnt/Malnutrition Patient General Information Nutritional Screening Moderate Risk Diagnosis psychosis Pertinent Medical Hx/Surgical Hx HTN, DM, CHF, dementia, bipolar Subjective Information Pt seen sitting on her bed at time of visit, awake and alert , refused to talk with RD. Per EMR, PO intake 100% since admitted. Current Diet Order/ Nutrition Support CCHO 60gm, CALI Pertinent Medications oscal w/vit D, colace, lasix, remeron Pertinent Labs no labs available Nutritional Hx/Data Height 1.73 m Height (Calculated Centimeters) 172.7 Current Weight (lbs) 54.431 kg Weight (Calculated Kilograms) 54.4 Weight (Calculated Grams) 60797.1 [place] Body Weight 140 Body Mass Index (BMI) 18.2 Weight Status Underweight GI Symptoms GI Symptoms None Last BM none noted Difficult in: None Skin Integrity/Comment: fredy 20 Estimated Nutritional Goals BEE in Kcals: Using Current wt Calories/Kcals/Kg 27-32 Kcals Calculated 4220-2797 Protein: Using Current wt Protein g/k-1.2 Protein Calculated 55-66 Fluid: ml 1485-1760ml (1ml/kcal) Nutritional Problem No current Nutrition Prob Problem N/A Intervention/Recommendation Comments 1. Continue with [facility] 60gm CALI diet as ordered. 2. Monitor PO intake, wt, labs and skin integrity 3. F/U as low risk in 7 days, 02/23 Expected Outcomes/Goals Expected Outcomes/Goals 1. PO intake to meet at least 75% of nutritional needs. 2. Wt stability, skin to remain intact, labs to approach WNL.
--- NOTE | 2018-03-01 19:39 | Progress Notes ---
DATE: 03/01/2018 SUBJECTIVE: The patient is still yelling, preoccupied, states that she does not want to take medications because "it makes me tired." Keeps asking me who I am over and over again. Still claiming that she is "Corrie High Power." The patient remains highly impulsive, unpredictable, bizarre, disoriented, calling other people "a lower level human being." ASSESSMENT: The patient refusing treatment, erratic behaviors, unable to be cared for at a lower level of care, continuing to refuse Zyprexa, stating that it makes her "tired." I will change her to a different medication with less sedation, potential, I told her. She states that she will take different medicine. JOB# [id number]
[2018-03-02] MEDS: Calcium Carb/Vit D 500 mg/200 U Tab PO SCH (08:52)
[2018-03-02] MEDS: Sulfamethoxazole/TMP 800/160mg Tab PO SCH ×2 (08:52→17:26)
[2018-03-02] MEDS: Lactobacillus Rhamnosus GG 15 Billion CFU CAP.SPRINK PO SCH (08:53)
[2018-03-02] MEDS: Multivitamin w/ Minerals Tab PO SCH (08:53)
--- NOTE | 2018-03-02 16:06 | Progress Notes ---
DATE: 03/02/2018 SUBJECTIVE: The patient is currently in the hospital, preoccupied, hyper-orthodoxy, asking me if I know the Lord and telling me that she talks to the Lord. Calling other people lower level human beings, bizarre, washing her hair in the sink, irritable, refusing treatment, stating that she is not mentally ill. ASSESSMENT: The patient preoccupied, grossly psychotic, grandiose, hyper-orthodoxy, disheveled, unkempt, refusing care. PLAN: A [place] petition was upheld. We will initiate antipsychotic medications. JOB# [id number]
[2018-03-03] MEDS: Sulfamethoxazole/TMP 800/160mg Tab PO SCH ×2 (09:06→17:19)
[2018-03-03] MEDS: Calcium Carb/Vit D 500 mg/200 U Tab PO SCH (09:07)
[2018-03-03] MEDS: Lactobacillus Rhamnosus GG 15 Billion CFU CAP.SPRINK PO SCH (09:07)
[2018-03-03] MEDS: Multivitamin w/ Minerals Tab PO SCH (09:07)
--- NOTE | 2018-03-04 03:03 | Progress Notes ---
DATE: 03/03/2018 SUBJECTIVE: Case was discussed with staff of the patient. The patient ____. The patient continues to be irritable, continues to be selective with her medication. She has been hallucinating, talking to the Lord, calling other people low level human beings, acting bizarre, washing her hair in the sink, refusing treatment. She gets medication by injection if she refuses oral medication. No side effects with the medication, no sedation, no nausea, no extrapyramidal symptoms. Also, Remeron 50 mg at bedtime and we will continue outpatient group therapy, milieu therapy, and adjust medications as needed. JOB# [id number]
[2018-03-04] MEDS: Multivitamin w/ Minerals Tab PO SCH (10:14)
[2018-03-04] MEDS: Lactobacillus Rhamnosus GG 15 Billion CFU CAP.SPRINK PO SCH (10:14)
[2018-03-04] MEDS: Calcium Carb/Vit D 500 mg/200 U Tab PO SCH (10:15)
[2018-03-04] MEDS: Sulfamethoxazole/TMP 800/160mg Tab PO SCH ×2 (10:15→17:17)
[2018-03-04] MEDS: Haloperidol Lactate 5 mg/mL 1mL Vial IM PRN ×2 (10:37→17:24)
--- NOTE | 2018-03-04 22:12 | Infectious Disease Prog Note ---
Infectious Disease Subjective - Review of Systems Service Date: 03/04/18 Subjective: skin lesions are same as before, no change. Infectious Disease Objective - Physical Exam Vitals and I&O: Vital Signs Temp 98.2 F 03/02/18 14:00 Pulse 99 03/02/18 14:00 Resp 20 03/02/18 14:00 BP 120/55 03/02/18 14:00 Pulse Ox 98 03/02/18 14:00 Intake & Output 03/04/18 03/04/18 03/05/18 06:59 18:59 06:59 Intake Total 360 950 240 Balance 360 950 240 Intake: Oral 360 950 240 Other: # Voids 1 4 1 # Bowel Movements 1 Active Medications: Current Medications Acetaminophen (Tylenol) 650 mg PO Q4HR PRN PRN Reason: Mild Pain / Temp above 100 Stop: 04/15/18 21:15 Acetaminophen (Tylenol Extra Strength) 1,000 mg PO Q4HR PRN PRN Reason: Pain (Severe) Stop: 04/15/18 21:41 Al Hydrox/Mg Hydrox/Simethicone (Maalox) 30 ml PO Q4HR PRN PRN Reason: GI DISTRESS Stop: 04/15/18 21:15 Calcium/Vitamin D (Oscal W/Vitamin D) 1 tab PO DAILY [facility] Stop: 04/16/18 08:59 Last Admin: 03/04/18 10:15 Dose: Not Given Carvedilol (Coreg) 3.125 mg PO BID [facility] Stop: 04/16/18 08:59 Last Admin: 03/04/18 17:16 Dose: Not Given Diphenhydramine HCl (Benadryl 50 Mg/Ml) 25 mg IM BID PRN PRN Reason: Agitation Stop: 05/01/18 11:09 Last Admin: 03/04/18 17:25 Dose: 25 mg Docusate Sodium (Colace) 100 mg PO DAILY [facility] Stop: 04/16/18 08:59 Last Admin: 03/04/18 10:16 Dose: Not Given Furosemide (Lasix) 40 mg PO DAILY [facility] Stop: 04/16/18 08:59 Last Admin: 03/04/18 10:16 Dose: Not Given Haloperidol (Haldol) 2 mg PO BID [facility]; Protocol Stop: 05/01/18 16:59 Last Admin: 03/04/18 17:17 Dose: Not Given Haloperidol Lactate (Haldol) 3 mg IM BID PRN PRN Reason: Agitation Stop: 05/01/18 11:09 Last Admin: 03/04/18 17:24 Dose: 3 mg Lactobacillus Rhamnosus (Culturelle 15b) 1 each PO DAILY [facility] Stop: 04/30/18 08:59 Last Admin: 03/04/18 10:14 Dose: Not Given Levofloxacin (Levaquin) 250 mg PO DAILY [facility] Stop: 04/28/18 08:59 Last Admin: 03/04/18 10:14 Dose: Not Given Lisinopril (Zestril) 5 mg PO DAILY [facility] Stop: 04/16/18 08:59 Last Admin: 03/04/18 10:16 Dose: Not Given Loratadine (Claritin) 10 mg PO DAILY PRN PRN Reason: Itching Stop: 04/15/18 21:41 Magnesium Hydroxide (Milk Of Magnesia) 30 ml PO HS PRN PRN Reason: Constipation Stop: 04/15/18 21:41 Mirtazapine (Remeron) 15 mg PO HS [facility]; Protocol Stop: 04/16/18 20:59 Last Admin: 03/04/18 21:04 Dose: Not Given Miscellaneous (Probiotic Screen) 1 ea MC PRN PRN PRN Reason: PROTOCOL Stop: 04/29/18 13:14 Mupirocin (Bactroban Oint) 1 appl TP BID [facility] Stop: 04/27/18 16:59 Last Admin: 03/04/18 17:16 Dose: Not Given Trimethoprim/Sulfamethoxazole (Bactrim Ds) 1 tab PO BID [facility] Stop: 04/27/18 16:59 Last Admin: 03/04/18 17:17 Dose: Not Given Valproate Sodium (Depakene) 250 mg PO BID [facility]; Protocol Stop: 04/23/18 16:59 Last Admin: 03/04/18 17:17 Dose: Not Given General: no acute distress, well developed, well nourished HEENT: atraumatic, normocephalic, PERRLA Neck: supple, no thyromegaly Cardiovascular: S1S2 Lungs: clear to auscultation bilaterally, clear to percussion, crackles Abdomen: soft, no tender, no distended Extremities: no cyanosis, no clubbing, no edema Neurological: awake, alert, oriented Infectious Disease Assmt/Plan - Assessment Assessment: agitation Psychosis cellulitis of legs. - Plan Plan: CPM. patient is non compliant, so hard to treat her condition. Nutritional Asmnt/Malnutr-PDOC - Dietary Evaluation Malnutrition Findings (Please click <Entered> for more info): Nutritional Asmnt/Malnutrition Start: 02/16/18 11: 14 Text: Status: Complete Freq: Protocol: Document 02/16/18 11:14 LCHENG (Rec: 02/16/18 11:19 LCHEN [email or web address]) Nutritional Asmnt/Malnutrition Patient General Information Nutritional Screening Moderate Risk Diagnosis psychosis Pertinent Medical Hx/Surgical Hx HTN, DM, CHF, dementia, bipolar Subjective Information Pt seen sitting on her bed at time of visit, awake and alert , refused to talk with RD. Per EMR, PO intake 100% since admitted. Current Diet Order/ Nutrition Support CCHO 60gm, CALI Pertinent Medications oscal w/vit D, colace, lasix, remeron Pertinent Labs no labs available Nutritional Hx/Data Height 1.73 m Height (Calculated Centimeters) 172.7 Current Weight (lbs) 54.431 kg Weight (Calculated Kilograms) 54.4 Weight (Calculated Grams) 05942.1 [place] Body Weight 140 Body Mass Index (BMI) 18.2 Weight Status Underweight GI Symptoms GI Symptoms None Last BM none noted Difficult in: None Skin Integrity/Comment: fredy [place] Estimated Nutritional Goals BEE in Kcals: Using Current wt Calories/Kcals/Kg 27-32 Kcals Calculated 8489-7806 Protein: Using Current wt Protein g/k-1.2 Protein Calculated 55-66 Fluid: ml 1485-1760ml (1ml/kcal) Nutritional Problem No current Nutrition Prob Problem N/A Intervention/Recommendation Comments 1. Continue with CCHO 60gm CALI diet as ordered. 2. Monitor PO intake, wt, labs and skin integrity 3. F/U as low risk in 7 days, 02/23 Expected Outcomes/Goals Expected Outcomes/Goals 1. PO intake to meet at least 75% of nutritional needs. 2. Wt stability, skin to remain intact, labs to approach WNL.
--- NOTE | 2018-03-04 22:19 | Progress Notes ---
DATE: 03/04/2018 SUBJECTIVE: Case was discussed with staff of the patient, reviewed records. The patient continues to be irritable, continues to have poor insight, unable to make safe plan for self-care. We need to be given medication by injection if she refuses oral. She continues to be bizarre. Continues to be inappropriate, unpredictable, impulsive, needing redirection. No side effects with the medication, no sedation, no nausea, no extrapyramidal symptoms. We will continue with outpatient group therapy, milieu therapy, and adjust medications as needed. JOB# [id number]
[2018-03-05] MEDS: Multivitamin w/ Minerals Tab PO SCH (09:56)
[2018-03-05] MEDS: Sulfamethoxazole/TMP 800/160mg Tab PO SCH ×2 (09:56→17:23)
[2018-03-05] MEDS: Lactobacillus Rhamnosus GG 15 Billion CFU CAP.SPRINK PO SCH (09:57)
[2018-03-05] MEDS: Calcium Carb/Vit D 500 mg/200 U Tab PO SCH (09:57)
--- NOTE | 2018-03-05 14:10 | Infectious Disease Prog Note ---
Infectious Disease Subjective - Review of Systems Service Date: 03/05/18 Subjective: skin lesions are same as before, no change. Infectious Disease Objective - Physical Exam Vitals and I&O: Vital Signs Temp 98.2 F 03/02/18 14:00 Pulse 99 03/02/18 14:00 Resp 20 03/02/18 14:00 BP 120/55 03/02/18 14:00 Pulse Ox 98 03/02/18 14:00 Intake & Output 03/04/18 03/05/18 03/05/18 18:59 06:59 18:59 Intake Total 950 420 Balance 950 420 Intake: Oral 950 420 Other: # Voids 4 2 # Bowel Movements 1 1 Stool Characteristics Soft Formed Brown Active Medications: Current Medications Acetaminophen (Tylenol) 650 mg PO Q4HR PRN PRN Reason: Mild Pain / Temp above 100 Stop: 04/15/18 21:15 Acetaminophen (Tylenol Extra Strength) 1,000 mg PO Q4HR PRN PRN Reason: Pain (Severe) Stop: 04/15/18 21:41 Al Hydrox/Mg Hydrox/Simethicone (Maalox) 30 ml PO Q4HR PRN PRN Reason: GI DISTRESS Stop: 04/15/18 21:15 Calcium/Vitamin D (Oscal W/Vitamin D) 1 tab PO DAILY [facility] Stop: 04/16/18 08:59 Last Admin: 03/05/18 09:57 Dose: Not Given Carvedilol (Coreg) 3.125 mg PO BID [facility] Stop: 04/16/18 08:59 Last Admin: 03/05/18 09:56 Dose: Not Given Diphenhydramine HCl (Benadryl 50 Mg/Ml) 25 mg IM BID PRN PRN Reason: Agitation Stop: 05/01/18 11:09 Last Admin: 03/04/18 17:25 Dose: 25 mg Docusate Sodium (Colace) 100 mg PO DAILY [facility] Stop: 04/16/18 08:59 Last Admin: 03/05/18 09:57 Dose: Not Given Furosemide (Lasix) 40 mg PO DAILY [facility] Stop: 04/16/18 08:59 Last Admin: 03/05/18 09:57 Dose: Not Given Haloperidol (Haldol) 2 mg PO BID [facility]; Protocol Stop: 05/01/18 16:59 Last Admin: 03/05/18 09:57 Dose: 2 mg Haloperidol Lactate (Haldol) 3 mg IM BID PRN PRN Reason: Agitation Stop: 05/01/18 11:09 Last Admin: 03/04/18 17:24 Dose: 3 mg Lactobacillus Rhamnosus (Culturelle 15b) 1 each PO DAILY [facility] Stop: 04/30/18 08:59 Last Admin: 03/05/18 09:57 Dose: 1 each Levofloxacin (Levaquin) 250 mg PO DAILY [facility] Stop: 04/28/18 08:59 Last Admin: 03/05/18 09:57 Dose: 250 mg Lisinopril (Zestril) 5 mg PO DAILY [facility] Stop: 04/16/18 08:59 Last Admin: 03/05/18 09:56 Dose: Not Given Loratadine (Claritin) 10 mg PO DAILY PRN PRN Reason: Itching Stop: 04/15/18 21:41 Magnesium Hydroxide (Milk Of Magnesia) 30 ml PO HS PRN PRN Reason: Constipation Stop: 04/15/18 21:41 Mirtazapine (Remeron) 15 mg PO HS [facility]; Protocol Stop: 04/16/18 20:59 Last Admin: 03/04/18 21:04 Dose: Not Given Miscellaneous (Probiotic Screen) 1 ea MC PRN PRN PRN Reason: PROTOCOL Stop: 04/29/18 13:14 Mupirocin (Bactroban Oint) 1 appl TP BID [facility] Stop: 04/27/18 16:59 Last Admin: 03/05/18 09:57 Dose: Not Given Trimethoprim/Sulfamethoxazole (Bactrim Ds) 1 tab PO BID [facility] Stop: 04/27/18 16:59 Last Admin: 03/05/18 09:56 Dose: 1 tab Valproate Sodium (Depakene) 250 mg PO BID [facility]; Protocol Stop: 04/23/18 16:59 Last Admin: 03/05/18 09:55 Dose: 250 mg General: no acute distress, well developed, well nourished HEENT: atraumatic, normocephalic, PERRLA, EOMI, moist mucous membrane Neck: supple, no thyromegaly, no lymphadenopathy, no rigid Cardiovascular: S1S2, regular Lungs: clear to auscultation bilaterally, clear to percussion Abdomen: soft, no tender, no distended, no mass Extremities: no cyanosis, no clubbing, no edema Neurological: awake, alert, oriented Skin: intact Infectious Disease Assmt/Plan - Assessment Assessment: agitation Psychosis cellulitis of legs. - Plan Plan: CPM. patient is non compliant, so hard to treat her condition. Nutritional Asmnt/Malnutr-PDOC - Dietary Evaluation Malnutrition Findings (Please click <Entered> for more info): Nutritional Asmnt/Malnutrition Start: 02/16/18 11: 14 Text: Status: Complete Freq: Protocol: Document 02/16/18 11:14 HENG (Rec: 02/16/18 11:19 [email or web address]) Nutritional Asmnt/Malnutrition Patient General Information Nutritional Screening Moderate Risk Diagnosis psychosis Pertinent Medical Hx/Surgical Hx HTN, DM, CHF, dementia, bipolar Subjective Information Pt seen sitting on her bed at time of visit, awake and alert , refused to talk with RD. Per EMR, PO intake 100% since admitted. Current Diet Order/ Nutrition Support CCHO 60gm, CALI Pertinent Medications oscal w/vit D, colace, lasix, remeron Pertinent Labs no labs available Nutritional Hx/Data Height 1.73 m Height (Calculated Centimeters) 172.7 Current Weight (lbs) 54.431 kg Weight (Calculated Kilograms) 54.4 Weight (Calculated Grams) 03754.1 [place] Body Weight 140 Body Mass Index (BMI) 18.2 Weight Status Underweight GI Symptoms GI Symptoms None Last BM none noted Difficult in: None Skin Integrity/Comment: fredy 20 Estimated Nutritional Goals BEE in Kcals: Using Current wt Calories/Kcals/Kg 27-32 Kcals Calculated 1644-1235 Protein: Using Current wt Protein g/k-1.2 Protein Calculated 55-66 Fluid: ml 1485-1760ml (1ml/kcal) Nutritional Problem No current Nutrition Prob Problem N/A Intervention/Recommendation Comments 1. Continue with CCHO 60gm CALI diet as ordered. 2. Monitor PO intake, wt, labs and skin integrity 3. F/U as low risk in 7 days, 02/23 Expected Outcomes/Goals Expected Outcomes/Goals 1. PO intake to meet at least 75% of nutritional needs. 2. Wt stability, skin to remain intact, labs to approach WNL.
[2018-03-05] MEDS: Haloperidol Lactate 5 mg/mL 1mL Vial IM PRN (17:51)
[2018-03-06] MEDS: Lactobacillus Rhamnosus GG 15 Billion CFU CAP.SPRINK PO SCH (09:28)
[2018-03-06] MEDS: Calcium Carb/Vit D 500 mg/200 U Tab PO SCH (09:28)
[2018-03-06] MEDS: Multivitamin w/ Minerals Tab PO SCH (09:28)
--- NOTE | 2018-03-06 14:31 | Progress Notes ---
DATE: 03/05/2018 SUBJECTIVE: The patient is currently in the hospital, remains symptomatic, still psychotic, hyper-jewish, bizarre. She has been refusing to take medications, but is taking medications honestly, in her room almost suspicious and paranoid. No side effects noted. No EPS for example. ASSESSMENT: The patient remains symptomatic, still psychotic, hyper-jewish, odd, making nonsensical statements, stating her name is not [employer], but in fact [employer]. We will continue to monitor, increase dosing of medications today. JOB# [id number]
--- NOTE | 2018-03-06 18:05 | Progress Notes ---
DATE: 03/05/2018 The patient in the hospital. Noted to be irritable, poor insight, not making any sense, still does not want to take medications, still grandiose referring to herself as a [employer], still does not want to take medications, confused, still delusional, mostly in her room and stays to herself. She is somewhat calmer, withdrawn, suspicious. ASSESSMENT: The patient remains symptomatic, ongoing psychotic symptoms, bizarre behaviors. PLAN: We will continue to monitor. We will order Haldol Decanoate. JOB# [id number]
--- NOTE | 2018-03-06 23:53 | Infectious Disease Prog Note ---
Infectious Disease Subjective - Review of Systems Service Date: 03/06/18 Subjective: skin lesions are same as before, no change. Infectious Disease Objective - Physical Exam Vitals and I&O: Vital Signs Temp 0 F 03/06/18 20:38 Pulse 99 03/02/18 14:00 Resp 20 03/02/18 14:00 BP 120/55 03/02/18 14:00 Pulse Ox 98 03/02/18 14:00 Intake & Output 03/06/18 03/06/18 03/07/18 06:59 18:59 06:59 Intake Total 1400 240 Balance 1400 240 Weight (lbs) 54.431 kg 54.431 kg Intake: Oral 1400 240 Other: # Voids 3 4 3 # Bowel Movements 0 0 0 Weight Source Bedscale Bedscale Active Medications: Current Medications Acetaminophen (Tylenol) 650 mg PO Q4HR PRN PRN Reason: Mild Pain / Temp above 100 Stop: 04/15/18 21:15 Acetaminophen (Tylenol Extra Strength) 1,000 mg PO Q4HR PRN PRN Reason: Pain (Severe) Stop: 04/15/18 21:41 Al Hydrox/Mg Hydrox/Simethicone (Maalox) 30 ml PO Q4HR PRN PRN Reason: GI DISTRESS Stop: 04/15/18 21:15 Calcium/Vitamin D (Oscal W/Vitamin D) 1 tab PO DAILY [facility] Stop: 04/16/18 08:59 Last Admin: 03/06/18 09:28 Dose: Not Given Carvedilol (Coreg) 3.125 mg PO BID [facility] Stop: 04/16/18 08:59 Last Admin: 03/06/18 17:32 Dose: Not Given Diphenhydramine HCl (Benadryl 50 Mg/Ml) 25 mg IM BID PRN PRN Reason: Agitation Stop: 05/01/18 11:09 Last Admin: 03/05/18 17:51 Dose: 25 mg Docusate Sodium (Colace) 100 mg PO DAILY [facility] Stop: 04/16/18 08:59 Last Admin: 03/06/18 09:28 Dose: Not Given Furosemide (Lasix) 40 mg PO DAILY [facility] Stop: 04/16/18 08:59 Last Admin: 03/06/18 09:27 Dose: Not Given Haloperidol (Haldol) 3 mg PO BID [facility]; Protocol Stop: 05/04/18 16:59 Last Admin: 03/06/18 17:31 Dose: 3 mg Haloperidol Decanoate (Haldol Dec) 25 mg IM QMONTH [facility]; Protocol Stop: 05/05/18 08:44 Last Admin: 03/06/18 17:32 Dose: Not Given Haloperidol Lactate (Haldol) 3 mg IM BID PRN PRN Reason: Agitation Stop: 05/01/18 11:09 Last Admin: 03/05/18 17:51 Dose: 3 mg Lactobacillus Rhamnosus (Culturelle 15b) 1 each PO DAILY [facility] Stop: 04/30/18 08:59 Last Admin: 03/06/18 09:28 Dose: 1 each Lisinopril (Zestril) 5 mg PO DAILY [facility] Stop: 04/16/18 08:59 Last Admin: 03/06/18 09:27 Dose: Not Given Loratadine (Claritin) 10 mg PO DAILY PRN PRN Reason: Itching Stop: 04/15/18 21:41 Magnesium Hydroxide (Milk Of Magnesia) 30 ml PO HS PRN PRN Reason: Constipation Stop: 04/15/18 21:41 Mirtazapine (Remeron) 15 mg PO HS [facility]; Protocol Stop: 04/16/18 20:59 Last Admin: 03/06/18 20:38 Dose: 15 mg Miscellaneous (Probiotic Screen) 1 ea MC PRN PRN PRN Reason: PROTOCOL Stop: 04/29/18 13:14 Mupirocin (Bactroban Oint) 1 appl TP BID [facility] Stop: 04/27/18 16:59 Last Admin: 03/06/18 17:32 Dose: Not Given Valproate Sodium (Depakene) 250 mg PO BID [facility]; Protocol Stop: 04/23/18 16:59 Last Admin: 03/06/18 17:32 Dose: 250 mg General: no acute distress, well developed, well nourished HEENT: atraumatic, normocephalic, PERRLA Neck: supple, no thyromegaly, no lymphadenopathy Cardiovascular: S1S2, regular Lungs: clear to auscultation bilaterally, clear to percussion Abdomen: soft, no tender, no distended Extremities: no cyanosis, no clubbing, no edema Neurological: awake, alert, oriented Skin: intact Infectious Disease Assmt/Plan - Assessment Assessment: agitation Psychosis cellulitis of legs. - Plan Plan: CPM. patient is non compliant, so hard to treat her condition. Nutritional Asmnt/Malnutr-PDOC - Dietary Evaluation Malnutrition Findings (Please click <Entered> for more info): Nutritional Asmnt/Malnutrition Start: 02/16/18 11: 14 Text: Status: Complete Freq: Protocol: Document 02/16/18 11:14 ROHAN (Rec: 02/16/18 11:19 [email or web address]) Nutritional Asmnt/Malnutrition Patient General Information Nutritional Screening Moderate Risk Diagnosis psychosis Pertinent Medical Hx/Surgical Hx HTN, DM, CHF, dementia, bipolar Subjective Information Pt seen sitting on her bed at time of visit, awake and alert , refused to talk with RD. Per EMR, PO intake 100% since admitted. Current Diet Order/ Nutrition Support CCHO 60gm, CALI Pertinent Medications oscal w/vit D, colace, lasix, remeron Pertinent Labs no labs available Nutritional Hx/Data Height 1.73 m Height (Calculated Centimeters) 172.7 Current Weight (lbs) 54.431 kg Weight (Calculated Kilograms) 54.4 Weight (Calculated Grams) 28763.1 [place] Body Weight 140 Body Mass Index (BMI) 18.2 Weight Status Underweight GI Symptoms GI Symptoms None Last BM none noted Difficult in: None Skin Integrity/Comment: fredy [place] Estimated Nutritional Goals BEE in Kcals: Using Current wt Calories/Kcals/Kg 27-32 Kcals Calculated 9869-9738 Protein: Using Current wt Protein g/k-1.2 Protein Calculated 55-66 Fluid: ml 1485-1760ml (1ml/kcal) Nutritional Problem No current Nutrition Prob Problem N/A Intervention/Recommendation Comments 1. Continue with CCHO 60gm CALI diet as ordered. 2. Monitor PO intake, wt, labs and skin integrity 3. F/U as low risk in 7 days, 02/23 Expected Outcomes/Goals Expected Outcomes/Goals 1. PO intake to meet at least 75% of nutritional needs. 2. Wt stability, skin to remain intact, labs to approach WNL.
[2018-03-07] MEDS: Calcium Carb/Vit D 500 mg/200 U Tab PO SCH (09:38)
[2018-03-07] MEDS: Lactobacillus Rhamnosus GG 15 Billion CFU CAP.SPRINK PO SCH (09:39)
[2018-03-07] MEDS: Multivitamin w/ Minerals Tab PO SCH (09:40)
[2018-03-07] MEDS: Haloperidol Lactate 5 mg/mL 1mL Vial IM PRN (09:51)
[2018-03-08] MEDS: Lactobacillus Rhamnosus GG 15 Billion CFU CAP.SPRINK PO SCH (09:14)
[2018-03-08] MEDS: Calcium Carb/Vit D 500 mg/200 U Tab PO SCH (09:14)
[2018-03-08] MEDS: Multivitamin w/ Minerals Tab PO SCH (09:14)
--- NOTE | 2018-03-08 10:20 | Progress Notes ---
DATE: 03/07/2018 SUBJECTIVE: The patient still hyper-mormon, telling me her name is really high power, asking me questions about whether I believe in the Lord. She is pretty disheveled, unkempt. This may be an approach of her baseline in regards to her delusions. She is calmer, not as aggressive or agitated. She may be chronically delusional. She has been taking her medications. I do have her on Haldol ____ order and hearing was upheld. ASSESSMENT: The patient is disheveled, unkempt, delusional, psychotic. PLAN: We will continue Haldol for now. Medications were noted. I will be increasing her Haldol dosing. [facility]# [id number]
--- NOTE | 2018-03-08 23:39 | Progress Notes ---
DATE: 03/08/2018 SUBJECTIVE: The patient is currently in the hospital, still nonsensical, rambling, bizarre, states that the court agreed with her, and that she should not be on any medications. The patient rambling, very confused, disoriented, does not believe that she is confused or disoriented. "You are the one that is confused." The patient is preoccupied, grandiose, very hyper-judaism, erratic, noncompliant, sometimes getting backup Haldol. ASSESSMENT: The patient remains symptomatic, ongoing safety concerns, still bizarre, loud, confused. PLAN: We will continue to monitor, titrate and adjust medications. Given recent dose increase of Haldol, we will continue at current dosing. JOB# [id number]
[2018-03-09] MEDS: Lactobacillus Rhamnosus GG 15 Billion CFU CAP.SPRINK PO SCH (08:50)
[2018-03-09] MEDS: Calcium Carb/Vit D 500 mg/200 U Tab PO SCH (13:19)
[2018-03-09] MEDS: Multivitamin w/ Minerals Tab PO SCH (13:21)
[2018-03-10] MEDS: Lactobacillus Rhamnosus GG 15 Billion CFU CAP.SPRINK PO SCH (08:29)
[2018-03-10] MEDS: Multivitamin w/ Minerals Tab PO SCH (08:30)
[2018-03-10] MEDS: Calcium Carb/Vit D 500 mg/200 U Tab PO SCH (08:30)
--- NOTE | 2018-03-10 09:17 | Progress Notes ---
DATE: 03/09/2018 SUBJECTIVE: The patient likely approaching her baseline, still calling herself fully high power, still delusional. This delusion may never dissipates. She is calmer. No behavioral disturbances in regards to any aggressive or violent behaviors. She is more amenable to taking her medications. Sleeping well, eating well, mostly keeps to herself. ASSESSMENT: The patient likely approaching her baseline, still tangential. No SI, no HI. Still delusional. No auditory or visual donations tolerant of Haldol and she is taking the Haldol now without any type of prompting. PLAN: We will continue to monitor. We are trying to confirm a safe discharge plan. JOB# [id number]
--- NOTE | 2018-03-10 14:50 | Infectious Disease Prog Note ---
Infectious Disease Subjective - Review of Systems Service Date: 03/10/18 Subjective: Patient was found laying down on the floor, I was called and asked for ER mD to evaluate. Patient was very noncompliant and not allowing staff to provide proper care. She stated that she fell on the left side of the bed and developed pain in the left thigh and hip. Xray followed by CT of the pelvis revealed fracture of the left femur ( prelim report). Infectious Disease Objective - Physical Exam Vitals and I&O: Vital Signs Temp 0 F 03/10/18 06:29 Pulse 74 03/09/18 14:00 Resp 18 03/09/18 14:00 BP 104/48 03/09/18 14:00 Pulse Ox 96 03/09/18 14:00 Intake & Output 03/09/18 03/10/18 03/10/18 18:59 06:59 18:59 Intake Total 1000 240 Balance 1000 240 Weight (lbs) 54.431 kg Intake: Oral 1000 240 Other: # Voids 4 3 # Bowel Movements 1 0 Weight Source Bedscale Active Medications: Current Medications Acetaminophen (Tylenol) 650 mg PO Q4HR PRN PRN Reason: Mild Pain / Temp above 100 Stop: 04/15/18 21:15 Acetaminophen (Tylenol Extra Strength) 1,000 mg PO Q4HR PRN PRN Reason: Pain (Severe) Stop: 04/15/18 21:41 Last Admin: 03/10/18 12:07 Dose: 1,000 mg Al Hydrox/Mg Hydrox/Simethicone (Maalox) 30 ml PO Q4HR PRN PRN Reason: GI DISTRESS Stop: 04/15/18 21:15 Calcium/Vitamin D (Oscal W/Vitamin D) 1 tab PO DAILY [facility] Stop: 04/16/18 08:59 Last Admin: 03/10/18 08:30 Dose: Not Given Carvedilol (Coreg) 3.125 mg PO BID [facility] Stop: 04/16/18 08:59 Last Admin: 03/10/18 08:29 Dose: Not Given Diphenhydramine HCl (Benadryl 50 Mg/Ml) 25 mg IM BID PRN PRN Reason: Agitation Stop: 05/01/18 11:09 Last Admin: 03/07/18 09:50 Dose: 25 mg Docusate Sodium (Colace) 100 mg PO DAILY [facility] Stop: 04/16/18 08:59 Last Admin: 03/10/18 08:29 Dose: Not Given Furosemide (Lasix) 40 mg PO DAILY [facility] Stop: 04/16/18 08:59 Last Admin: 03/10/18 08:29 Dose: Not Given Haloperidol (Haldol) 4 mg PO BID [facility]; Protocol Stop: 05/06/18 16:59 Last Admin: 03/10/18 08:50 Dose: 4 mg Haloperidol Decanoate (Haldol Dec) 25 mg IM QMONTH [facility] Stop: 05/06/18 08:59 Last Admin: 03/07/18 09:51 Dose: 25 mg Haloperidol Lactate (Haldol) 3 mg IM BID PRN PRN Reason: Agitation Stop: 05/01/18 11:09 Last Admin: 03/07/18 09:51 Dose: 3 mg Lactobacillus Rhamnosus (Culturelle 15b) 1 each PO DAILY [facility] Stop: 04/30/18 08:59 Last Admin: 03/10/18 08:29 Dose: Not Given Lisinopril (Zestril) 5 mg PO DAILY [facility] Stop: 04/16/18 08:59 Last Admin: 03/10/18 08:30 Dose: Not Given Loratadine (Claritin) 10 mg PO DAILY PRN PRN Reason: Itching Stop: 04/15/18 21:41 Last Admin: 03/09/18 18:23 Dose: 10 mg Magnesium Hydroxide (Milk Of Magnesia) 30 ml PO HS PRN PRN Reason: Constipation Stop: 04/15/18 21:41 Mirtazapine (Remeron) 15 mg PO HS [facility]; Protocol Stop: 04/16/18 20:59 Last Admin: 03/09/18 22:00 Dose: Not Given Miscellaneous (Probiotic Screen) 1 ea MC PRN PRN PRN Reason: PROTOCOL Stop: 04/29/18 13:14 Mupirocin (Bactroban Oint) 1 appl TP BID [facility] Stop: 04/27/18 16:59 Last Admin: 03/10/18 08:30 Dose: Not Given Valproate Sodium (Depakene) 250 mg PO BID [facility]; Protocol Stop: 04/23/18 16:59 Last Admin: 03/10/18 08:30 Dose: Not Given General: no acute distress, well developed HEENT: atraumatic, normocephalic, PERRLA Neck: supple, no thyromegaly Cardiovascular: S1S2, regular Lungs: clear to auscultation bilaterally, clear to percussion Abdomen: soft, no tender, no distended Extremities: other (left trochanter tenderness), no cyanosis, no clubbing, no edema Neurological: awake, alert Skin: intact Infectious Disease Assmt/Plan - Assessment Assessment: Suspected fall Fracture of left femur. agitation Psychosis cellulitis of legs. - Plan Plan: CPM. patient is non compliant, so hard to treat her condition. Patient will be tanasferred to the acute setting. consult Dr Thornton, Ortho consult. CHACHA RN. Nutritional Asmnt/Malnutr-PDOC - Dietary Evaluation Malnutrition Findings (Please click <Entered> for more info): Nutritional Asmnt/Malnutrition Start: 02/16/18 11: 14 Text: Status: Complete Freq: Protocol: Document 02/16/18 11:14 LCHENG (Rec: 02/16/18 11:19 [email or web address]) Nutritional Asmnt/Malnutrition Patient General Information Nutritional Screening Moderate Risk Diagnosis psychosis Pertinent Medical Hx/Surgical Hx HTN, DM, CHF, dementia, bipolar Subjective Information Pt seen sitting on her bed at time of visit, awake and alert , refused to talk with RD. Per EMR, PO intake 100% since admitted. Current Diet Order/ [facility], CALI Pertinent Medications oscal w/vit D, colace, lasix, remeron Pertinent Labs no labs available Nutritional Hx/Data Height 1.73 m Height (Calculated Centimeters) 172.7 Current Weight (lbs) 54.431 kg Weight (Calculated Kilograms) 54.4 Weight (Calculated Grams) 97808.1 [place] Body Weight 140 Body Mass Index (BMI) 18.2 Weight Status Underweight GI Symptoms GI Symptoms None Last BM none noted Difficult in: None Skin Integrity/Comment: fredy 20 Estimated Nutritional Goals BEE in Kcals: Using Current wt Calories/Kcals/Kg 27-32 Kcals Calculated 9234-3005 Protein: Using Current wt Protein g/k-1.2 Protein Calculated 55-66 Fluid: ml 1485-1760ml (1ml/kcal) Nutritional Problem No current Nutrition Prob Problem N/A Intervention/Recommendation Comments 1. Continue with [facility] 60gm CALI diet as ordered. 2. Monitor PO intake, wt, labs and skin integrity 3. F/U as low risk in 7 days, 02/23 Expected Outcomes/Goals Expected Outcomes/Goals 1. PO intake to meet at least 75% of nutritional needs. 2. Wt stability, skin to remain intact, labs to approach WNL.
[2018-03-10] MEDS ORDERED: Hydrocodone/APAP 5mg/325mg Tab PO PRN (16:51)
--- NOTE | 2018-03-10 17:35 | Discharge Summary ---
DATE OF DISCHARGE: 03/10/2018 CHIEF COMPLAINT: Agitation. HISTORY OF PRESENT ILLNESS AND HOSPITAL COURSE: The patient is a 77-year-old female with past medical history of hypertension, diabetes mellitus type 2, CHF, dementia, admitted to Geropsych Unit for agitation. The patient was very agitated and hostile to the staff, so she was admitted to Geropsych Unit through the ER. She was evaluated and treated by a psych event management consultant in Geropsych Unit. She remained very noncompliant, not taking any medication. The patient was also found to have some wounds and erythema with scabs on her lower extremity. She was given antibiotic, refused to take any. Today, she was very confused and tried to come out of bed on the left side, she fell on the floor. She developed pain in the left hip and thigh. X-ray of the left hip and femur was ordered and it suspected a fracture of the left femur. CT scan of the pelvis was performed and it showed a fracture of the left femur. The patient was getting [place]. Since the patient has documented fracture of the left femur, the patient was discharged and transferred to the acute care. We will ask Dr. Thornton to look at the patient and take further recommendations accordingly. We will ask for a psych consult with Dr. Pitts to follow the patient. DISCHARGE DIAGNOSES: 1. Fracture of the left femur. 2. Agitation, psychosis. 3. Cellulitis of the legs. 4. Hypertension. 5. Osteoarthritis. 6. Noncompliance. JOB# [id number]
--- NOTE | 2018-03-11 01:51 | Progress Notes ---
DATE: 03/10/2018 SUBJECTIVE: The patient still talking nonsense, hyper-scientologist, still delusional, stating her name is Corrie Royal. However, she is calmer, more cooperative. She is likely approaching her baseline. Fair sleep, fair appetite, although she was with early childhood education coordinator awakenings. The patient is still at time not wanting to take medication, but she is now with Haldol, Decanoate. ASSESSMENT: The patient grandiose, delusional, likely approaching her baseline. We will continue to monitor. The patient states that she owns the hospital. Still delusion persists. JOB# [id number]
--- NOTE | 2018-03-11 10:22 | Diagnostic Imaging Report ---
Pelvis and left hip 2 views Indication: Pain rule out fracture Comparison: none Findings: Exams degenerative changes of the lower lumbar spine are noted with the scoliosis. Moderate degenerative changes of the right and advanced degenerative changes of left hip joint is noted with possible old trauma or large osteophyte along the left femoral head/neck junction. There is lucency seen along the left femoral intertrochanteric region and left basicervical region. No dislocation. Impression: Lucency seen along the left femoral intertrochanteric the left basocervical region. A nondisplaced fracture cannot be excluded. CT with further clarify. Degenerative changes, advanced at the left hip joint. In the setting of trauma, if clinical symptoms persist and there is continued concern for an occult fracture, follow up exams in 5-7 days is suggested.
--- NOTE | 2018-03-11 10:23 | Diagnostic Imaging Report ---
Left femur 2 views Indication: Trauma Comparison: Pelvis and left hip x-rays the same day Findings: Advanced junction left hip joint is noted. There is lucency seen along the left intertrochanteric region extending to the left basicervical region. Calcifications are seen along the left greater trochanteric region. Degenerative changes of the knee joint are partially seen. Impression: Lucency seen along left intertrochanteric and left basicervical regions. A nondisplaced fracture cannot be excluded. CT would further clarify. In the setting of trauma, if clinical symptoms persist and there is continued concern for an occult fracture, follow up exams in 5-7 days is suggested.
--- NOTE | 2018-03-11 10:46 | Diagnostic Imaging Report ---
CT pelvis without IV contrast HISTORY: Pain, rule out fracture COMPARISON: Pelvis and left hip x-rays the same day Technique: Axial images were obtained from the lower abdomen to the proximal bilateral femurs without IV contrast. Reconstructions were made. total DLP: 297 , CTDI8 Findings: Moderate stool is noted. Atherosclerosis is noted. Distended urinary bladder is there appear to be postsurgical changes of the lower lumbar spine. Degenerative changes of the lower lumbar spine noted. Enthesophyte formation is seen throughout the pelvis. Moderate degenerative changes right hip joint advanced degenerative changes left hip joint is seen with large osteophyte seen along the left femoral head/neck junction. There is a nondisplaced fracture of the left intertrochanteric region which extends to the basicervical region of the left femoral neck. No dislocation. No significant focal soft tissue swelling. IMPRESSION: Nondisplaced left femoral intertrochanteric fracture with extension to the basicervical region of the left femoral neck. No dislocation. Advanced degenerative changes of the left hip joint. Osteopenia suspected. Distended bladder Atherosclerotic vascular disease.
== END 2018-03-10 19:54 | disposition short-term general hospital (02) | DRG 884 ==
LOC: ER 13:22 → GERO 20:00
PROVIDERS: ADMIT Psychiatry & Neurology Psychiatry; ATTEND Psychiatry & Neurology Psychiatry
DX: F03.90 Unspecified dementia, unspecified severity, without behavioral disturbance, psychotic disturbance, mood disturbance, and anxiety (principal); I11.0 Hypertensive heart disease with heart failure; S72.145A Nondisplaced intertrochanteric fracture of left femur, initial encounter for closed fracture; L03.116 Cellulitis of left lower limb; L03.115 Cellulitis of right lower limb; F31.9 Bipolar disorder, unspecified; M19.90 Unspecified osteoarthritis, unspecified site; I50.9 Heart failure, unspecified; F29 Unspecified psychosis not due to a substance or known physiological condition; W18.30XA Fall on same level, unspecified, initial encounter; Y93.89 Activity, other specified; Y92.89 Other specified places as the place of occurrence of the external cause; Y99.8 Other external cause status; Z91.14 Patient's other noncompliance with medication regimen; Z83.3 Family history of diabetes mellitus; Z82.49 Family history of ischemic heart disease and other diseases of the circulatory system
CPT/HCPCS: 72192-TC; 73501; 83036-90; 87070-90; 87075-90; 87205-90; G0410; J1200; J1630; J1631; J7051; Z7610

== ENCOUNTER 2018-03-10 20:13 | Inpatient (IN) | payer MEDICARE, MEDICAID ==
[2018-03-10 21:28] VITALS: BP 167/94
--- NOTE | 2018-03-11 23:46 | Consultation ---
DATE OF CONSULTATION: 03/11/2018 HISTORY OF PRESENT ILLNESS: The patient is a 77-year-old lady recently admitted to [facility] Geropsych Unit because of dementia and agitation. On 03/10/2018 she was climbing out of bed and fell injuring her left hip. X-rays and a CT show a fracture. I was called in orthopedic consultation by the admitting physician regarding this fracture. PAST HISTORY: I am not able to get any information from the patient. She is totally noncompliant and uncooperative; did not want me to touch her. Information gleaned from the medical record include a past history of hypertension, diabetes type 2, congestive heart failure, dementia with agitation, cellulitis of her legs, osteoarthritis. Family history, additional past history, etc. not obtainable examination. PHYSICAL EXAMINATION: The patient was examined in her hospital room at [facility] med-surg unit. She was sitting on the bed with her legs outstretched. It was noted that the left leg was slightly shortened and externally rotated. She denied pain. I asked her to move her legs and she would not move either one of them. I could see excoriatons on her legs. Further examination was not possible as she did not wish to be touched. IMAGING STUDIES: I viewed the images in the PACS, X-rays of her pelvis and left hip and CT scan. There is a minimal to nondisplaced fracture line through the base of the neck at the intertrochanteric line, left hip. ORTHOPEDIC DIAGNOSIS: Intertrochanteric fracture, left hip, closed, slightly displaced. RECOMMENDATIONS: The patient should be kept on bed rest and Murphy's traction applied. If she does not displace this fracture further it will be advisable to do open reduction and internal fixation with an intertrochanteric nail. She will need medical preoperative clearance and a proper consent. I will attempt to do her surgery in the morning of 03/13/2018. Thank you for this interesting referral. JOB# [id number] [email or web address]
[2018-03-12] MEDS ORDERED: Maalox 30 mL Cup PO PRN (01:35)
[2018-03-12] MEDS ORDERED: Acetaminophen 500 MG TAB PO PRN (01:35)
[2018-03-12] MEDS ORDERED: Magnesium Hydroxide (MOM) 30 mL UDC PO PRN (01:37)
[2018-03-12] MEDS ORDERED: Hydrocodone/APAP 5mg/325mg Tab PO PRN (01:37)
--- NOTE | 2018-03-12 02:28 | History & Physical ---
ADMIT DATE: 03/11/2018 CHIEF COMPLAINT: Left hip fracture. HISTORY OF PRESENT ILLNESS: The patient is a 77-year-old female with a past medical history of agitation and psychosis, cellulitis of the legs, hypertension, osteoarthritis and admitted to Geropsych Unit through the ER on 02/14/2018 for agitation. She was very noncompliant, not taking her medications. The patient found to have some wound, erythema with a scab on lower extremity. She was given oral antibiotic and she has not taken any. She was very confused and trying to come out of the bed on the left side and fell on the floor. She developed pain in the left hip and thigh. X-ray of the left hip and femur was ordered and suspected fracture of the left femur. CT scan of the pelvis was performed and it revealed left femoral intertrochanteric fracture extending to the basicervical femoral neck region. The patient was discharged from Geropsych Unit and admitted to the [facility]. Still the patient is very noncompliant and not allowing to take care of her. Dr. Thornton was called for this Ortho consultation. ORIF is planned for Monday. Dr. Pitts will take care of the patient from the psych issues. PAST MEDICAL HISTORY: Includes dementia, psychosis, hypertension, osteoarthritis and cellulitis of lower legs. SOCIAL HISTORY: The patient lives at nursing facility. No history of smoking, alcohol or drug use. PAST SURGICAL HISTORY: Unknown. FAMILY HISTORY: Unknown. REVIEW OF SYSTEMS: GENERAL: The patient denies any fever or chills, no generalized weakness. HEENT: No diplopia, no photophobia, no sore throat. RESPIRATORY: No cough, no shortness of breath. CVS: No chest pain or palpitation. GASTROINTESTINAL: No nausea, no vomiting, no diarrhea, no constipation. GENITOURINARY: No dysuria. NEUROLOGIC: No headache, no dizziness, no focal weakness. MUSCULOSKELETAL: The patient has left hip pain. NEUROLOGICAL: No headache, no dizziness, no focal weakness. PHYSICAL EXAMINATION: CURRENT VITAL SIGNS: Shows temperature is 98 degrees Fahrenheit, pulse 58, respiration is 18, blood pressure 142/70. GENERAL: The patient is comfortable, lying in the bed, not in acute distress. HEENT: Head is normocephalic, atraumatic. Oral cavity moist, pink tongue. NECK: Supple, no JVD, no carotid bruit. Trachea in midline. CHEST: Bilateral breath sounds. No crackles or wheezing. HEART: S1, S2 within normal limits. Regular rhythm. No murmur, no gallop. ABDOMEN: Soft, nontender, nondistended. Bowel sounds present. EXTREMITIES: No cyanosis, no clubbing, no edema. NEUROLOGICAL: Alert, awake, oriented x 3. MUSCULOSKELETAL: The patient has tenderness in the left trochanter. LABORATORY DATA: Current lab shows no labs. IMPRESSION: 1. Fracture of the left femur. 2. Agitation and psychosis, noncompliance. 3. Cellulitis of legs. 4. Hypertension. 5. Osteoarthritis. 6. Noncompliance. RECOMMENDATIONS: Surgical intervention as per Dr. Thornton. We will get Dr. Pedrito Khalil for the cardiologic clearance. JOB# [id number]
--- NOTE | 2018-03-12 05:26 | Consultation ---
DATE OF CONSULTATION: 03/11/2018 HISTORY OF PRESENT ILLNESS: A 77-year-old female well known to this clinician, history of cognitive decline, confusional state, possibly dementia, likely schizophrenia versus bipolar, had been in the Geropsych Unit, was treated there with antipsychotic medications. Unfortunately, she apparently fell and suffered a fracture and is now in the MedSurg unit. She is calm, more linear today. She knows why she is in the unit. She knows that she is not to walk or get up. She does remain hyper-confucianism, grandiose, delusional, and still states her name is "really high power." Staff noting she is somewhat irritable, but has been for the most part following unit rules and directions, still resistant to taking medications, believes that she has no mental illness. PAST PSYCHIATRIC HISTORY: Coming from the Geropsych Unit. FAMILY HISTORY: Noncontributory. SOCIAL HISTORY: [place], [facility]. MENTAL STATUS EXAMINATION: Stated age, little eye contact. Speech within normal limits, somewhat perseverative. Mood "okay." Affect flat. Thought processes were more linear, no SI, no HI. No hallucinations, but she remains grandiose, delusional. Insight and judgment still somewhat diminished. PROVISIONAL DIAGNOSES: Rule out dementia, schizophrenia versus bipolar. MEDICAL: Please see full H and P. RECOMMENDATIONS AND PLAN: Continue treatment. The patient is receiving Haldol Decanoate. She had been making a robust improvement and I was in fact preparing for disposition on 03/12/2018. Pending a bed opening at [facility]. JOB# [id number]
[2018-03-12 06:40] LABS: HEMATOCRIT 38.8 % (41.0-60); HEMOGLOBIN 13.4 gm/dL (12-16); MEAN CELL VOLUME 84.6 fl (81-100); MEAN CORPUSCULAR HEMOGLOBIN 29.2 pg (27.0-31.0); MEAN CORPUSCULAR HGB CONC 34.5 pg (28.0-36.0); PLATELET COUNT 162 Th/cmm (150-400); RED BLOOD COUNT 4.59 Mil/cmm (3.80-5.20); RED CELL DISTRIBUTION WIDTH 11.9 % (11.5-20.0)
[2018-03-12 06:46] LABS: INR 0.97 (0.5-1.4); PROTHROMBIN TIME (TEST) 10.1 SECONDS (9.5-11.5)
[2018-03-12 06:49] LABS: WHITE BLOOD COUNT 19.9 Th/cmm (4.8-10.8)
[2018-03-12 06:58] LABS: ALBUMIN 3.8 gm/dL (3.7-5.3); ALKALINE PHOSPHATASE 76 U/L (34-104); ANION GAP 13.3 (7.0-16.0); BILIRUBIN,TOTAL 3.1 mg/dL (0.3-1.0); BUN - UREA NITROGEN 20 mg/dL (7-25); CALCIUM SERUM 9.8 mg/dL (8.6-10.3); CARBON DIOXIDE 27.5 mEq/L (21.0-31.0); CHLORIDE 97 mEq/L (98-107); CREATININE - SERUM 0.4 mg/dL (0.6-1.2); GLUCOSE 220 mg/dL (70-105); POTASSIUM SERUM 3.8 mEq/L (3.5-5.1); SGOT 35 U/L (13-39); SGPT/ALT 40 U/L (7-52); SODIUM SERUM 134 mEq/L (136-145); TOTAL PROTEIN,SERUM 7.5 gm/dL (6.0-8.3)
[2018-03-12 08:24] LABS: BAND NEUTROPHILE 0 % (0-10); EOSINOPHIL 0 % (0-5); LYMPHOCYTE 8 % (20-50); MONOCYTE 7 % (2-10); NEUTROPHILS 85 % (40-80)
[2018-03-12] MEDS: Calcium Carb/Vit D 500 mg/200 U Tab PO SCH (11:11)
[2018-03-12] MEDS: Haloperidol Lactate 2 mg/mL Udc PO SCH ×2 (11:12→19:02)
[2018-03-12] MEDS: Lactobacillus Rhamnosus GG 15 Billion CFU CAP.SPRINK PO SCH (11:12)
[2018-03-12] MEDS: Multivitamin w/ Minerals Tab PO SCH (11:13)
[2018-03-12] MEDS ORDERED: Haloperidol Lactate 2 mg/mL Udc PO PRN (12:30)
[2018-03-12] MEDS ORDERED: Haloperidol Lactate 5 mg/mL 1mL Vial IM PRN (13:48)
[2018-03-12] MEDS ORDERED: Morphine Sulfate 2 mg/mL 1mL Syr IM PRN (14:19)
--- NOTE | 2018-03-12 18:42 | Consultation ---
DATE OF CONSULTATION: 03/12/2018 HISTORY OF PRESENT ILLNESS: A 77-year-old female well known to this clinician, refusing her medications, not following rules and not following treatment plan, does not want surgery, although the surgeon wants to operate on her. The patient remains delusional, still calling herself Corrie High Power, does not really know what is going on. However, she does note that she fractured her leg, but just wants it to heal on its own, out of touch with reality. Fair sleep, fair appetite, mostly keeps to herself, very irritable. MENTAL STATUS EXAMINATION: Stated age. Fair eye contact. Speech within normal limits. Mood "fine." Affect flat. Thought processes were disorganized. No SI, no HI, ongoing delusions, grandiosities. Insight and judgment diminished. PROVISIONAL DIAGNOSIS: Schizophrenia, concerns for dementia. RECOMMENDATIONS AND PLAN: The patient is under a Riese petition for further 24 hours. We will put in backup Haldol order. She is receiving Haldol Decanoate and recommend that the nursing staff tried to contact next of kin for consent for any procedures. JOB# [id number]
--- NOTE | 2018-03-12 19:49 | Consultation ---
DATE OF CONSULTATION: 03/11/[address] Antoni Khalil. HISTORY OF PRESENT ILLNESS: This is a 77-year-old female patient who had a fall in [facility]. Following this, the patient developed left hip fracture. The patient is transferred to [facility] and medical clearance is requested. PAST MEDICAL HISTORY: The patient has a history of dementia, psychosis, hypertension, osteoarthritis, and cellulitis of the lower legs. FAMILY HISTORY: Unremarkable. SOCIAL HISTORY: No history of smoking or alcohol abuse. ALLERGIES: No known allergies. PHYSICAL EXAMINATION: VITAL SIGNS: Blood pressure 130/80, pulse 70, and respirations 20. HEAD: Normocephalic. No lumps or bumps. EYES: Pupils equal, reactive to light. Fundi show AV nicking, sclerae white, conjunctivae pink. NECK: Carotid 2+. Normal upstroke. JVD flat. Thyroid not palpable. Lymph nodes not palpable. CHEST: Shows increased AP diameter. No kyphosis, scoliosis. LUNGS: Bilateral bronchovesicular breath sounds. HEART: PMI fifth intercostal space with lateral to midclavicular line. S1, S2. No S3, S4, soft systolic murmur. ABDOMEN: Soft. Liver, spleen not palpable. No organomegaly. Bowel sounds active. NEUROLOGIC: Unremarkable. EXTREMITIES: Peripheral pulses 1+. Pain and tenderness in the left hip. CLINICAL IMPRESSION: Left hip fracture, agitation secondary to psychosis, cellulitis of the legs, hypertension, osteoarthritis, and noncompliance. PLAN: The patient to get EKG for the clearance of surgery. The patient otherwise unremarkable. The patient cleared for surgery. The patient needs IV antibiotics in view of elevated white count. JOB# [id number]
[2018-03-13 07:19] LABS: HEMATOCRIT 37.1 % (41.0-60); HEMOGLOBIN 12.5 gm/dL (12-16); MEAN CELL VOLUME 84.4 fl (81-100); MEAN CORPUSCULAR HEMOGLOBIN 28.3 pg (27.0-31.0); MEAN CORPUSCULAR HGB CONC 33.6 pg (28.0-36.0); MEAN PLATELET VOLUME 7.5 fl; PLATELET COUNT 138 Th/cmm (150-400); RED CELL DISTRIBUTION WIDTH 11.9 % (11.5-20.0)
[2018-03-13 07:21] LABS: WHITE BLOOD COUNT 12.3 Th/cmm (4.8-10.8)
[2018-03-13 07:36] LABS: ANION GAP 12.2 (7.0-16.0); BUN - UREA NITROGEN 18 mg/dL (7-25); CALCIUM SERUM 9.5 mg/dL (8.6-10.3); CARBON DIOXIDE 27.4 mEq/L (21.0-31.0); CHLORIDE 97 mEq/L (98-107); CREATININE - SERUM 0.4 mg/dL (0.6-1.2); GLUCOSE 199 mg/dL (70-105); POTASSIUM SERUM 3.6 mEq/L (3.5-5.1); SODIUM SERUM 133 mEq/L (136-145)
[2018-03-13 07:59] LABS: BAND NEUTROPHILE 0 % (0-10); BASOPHIL 0 % (0-3); EOSINOPHIL 3 % (0-5); LYMPHOCYTE 17 % (20-50); MONOCYTE 14 % (2-10); NEUTROPHILS 66 % (40-80)
[2018-03-13] MEDS: Calcium Carb/Vit D 500 mg/200 U Tab PO SCH (09:31)
[2018-03-13] MEDS: Multivitamin w/ Minerals Tab PO SCH (09:32)
[2018-03-13] MEDS: Haloperidol Lactate 2 mg/mL Udc PO SCH ×2 (09:32→16:28)
[2018-03-13] MEDS: Lactobacillus Rhamnosus GG 15 Billion CFU CAP.SPRINK PO SCH (09:32)
--- NOTE | 2018-03-13 11:49 | Progress Notes ---
DATE: 03/12/2018 SUBJECTIVE: The patient lying in the bed, not in acute distress, no fever, no chills. OBJECTIVE: VITAL SIGNS: Current vital signs shows temperature is 98 degrees Fahrenheit, respiration is 17, pulse 58 and blood pressure 142/70. GENERAL: The patient is very noncompliant, not taking any medication. Otherwise, alert and oriented, not in acute distress. HEENT: Head is normocephalic, atraumatic. Oral cavity moist, pink tongue. NECK: Supple. No JVD. No carotid bruit. Trachea in midline. CHEST: Bilateral breath sounds. No crackles or wheezing. HEART: S1, S2 within normal limits. Regular rhythm. No murmur or gallop. ABDOMEN: Soft, nontender, nondistended. Bowel sounds present. CENTRAL NERVOUS SYSTEM: Alert and awake. LABORATORY DATA: Current lab shows WBC count 19,900, hemoglobin 38.8, platelets are 160,000. INR 0.97, PTT 24.5. Sodium 134, potassium 3.8, chloride 97, bicarbonate is 27.5, BUN is 20 and creatinine 2.4, glucose is 220. ASSESSMENT: 1. Fracture of left femur, femoral neck. 2. Agitation, psychosis, noncompliance. 3. Cellulitis of legs. 4. Hypertension. 5. Osteoarthritis 5. Noncompliant. RECOMMENDATIONS: Surgical intervention as per scheduled for tomorrow. PLAN: The patient is medically cleared. Follow up as per the psych furniture rental consultant. I have discussed with the patient's son, Cy this evening and he agreed for the procedure. He wanted to take her home to [facility]. I have discussed with him and asked for the surgical treatment first and followed by transfer to Hospital. [facility]. JOB# [id number]
--- NOTE | 2018-03-14 01:04 | Progress Notes ---
DATE: 03/13/2018 SUBJECTIVE: The patient is currently in the med-surg unit. Fractured her leg, at times pulling out her IV, distracted, somewhat disoriented, really does not know what is going to happen next, does not want to have surgery, although she needs surgery because her leg is fractured. The patient is refusing all medications. No longer on a 14-day hold, refusing to stay voluntarily. Telling me to "get out" "this is none of your business." ASSESSMENT: The patient still really aggressive, agitated, refusing treatment, and disoriented. I will have to initiate a 30-day hold given the patient refusing to sign voluntarily. Concerns for her ability to care for herself at a lower level of care. We will continue to monitor. I may need to file another Riese petition, although she was given Haldol Decanoate already. JOB# [id number]
--- NOTE | 2018-03-14 02:45 | Progress Notes ---
DATE: 03/13/2018 SUBJECTIVE: The patient is lying in the bed, not in acute distress. The patient refused the surgery and refused all the medical treatment. So, surgery was canceled for left hip fracture. The patient was put on 5270 hold, 30 days hold. The patient is going through the court orders. The patient has refused all kind of treatment including medications. The patient also pulled her IV. OBJECTIVE: CURRENT VITAL SIGNS: Shows temperature is 98.5 degrees Fahrenheit, pulse 118, respirations 19, blood pressure 185/85. GENERAL: The patient is comfortable. HEENT: Head is normocephalic, atraumatic. Oral cavity moist, pink tongue. Eyes: No pallor, no icterus. NECK: Supple, no JVD, no carotid bruit. CHEST: Bilateral breath sounds. No crackles or wheezing. HEART: S1, S2 within normal limits. LABORATORY DATA: Current labs WBC count 12,300, hemoglobin 12.5, hematocrit 37.1, platelets are 138,000, neutrophils 66%. Sodium 133, potassium 3.6, chloride 97, bicarbonate is 27.4, BUN is 18, creatinine 0.4, glucose is 199. IMPRESSION: 1. Left hip fracture. 2. Agitation, psychosis, noncompliance. 3. Hypertension. 4. Osteoarthritis. 5. Noncompliance. PLAN: Surgery was canceled as the patient was very noncooperative and was not willing to take medication. As per the note from yesterday I have stated that the patient was medically cleared for the surgery. We will make the discharge plan according to the court order. I will not transfer to any another facility unless it was cleared by court order. The patient is already on a 30-day hold and as per the psych systems consultant the patient cannot be transferred to lower level of care. To note, the patient is 30-day hold, 5270. JOB# [id number]
[2018-03-14] MEDS: Calcium Carb/Vit D 500 mg/200 U Tab PO SCH (08:40)
[2018-03-14] MEDS: Lactobacillus Rhamnosus GG 15 Billion CFU CAP.SPRINK PO SCH (08:40)
[2018-03-14] MEDS: Haloperidol Lactate 2 mg/mL Udc PO SCH ×2 (08:40→16:34)
[2018-03-14] MEDS: Multivitamin w/ Minerals Tab PO SCH (08:41)
--- NOTE | 2018-03-14 15:43 | Infectious Disease Prog Note ---
Infectious Disease Subjective - Review of Systems Service Date: 03/14/18 Subjective: Patient is very noncompliant and not following instruction. There is no fever, no chest pain. Infectious Disease Objective - Results Result Diagrams: 03/13/18 05:50 03/13/18 05:50 Recent Labs: Laboratory Last Values WBC 12.3 Th/cmm (4.8-10.8) H D 03/13/18 05:50 RBC 4.40 Mil/cmm (3.80-5.20) 03/13/18 05:50 Hgb 12.5 gm/dL (12-16) 03/13/18 05:50 Hct 37.1 % (41.0-60) L 03/13/18 05:50 MCV 84.4 fl (81-100) 03/13/18 05:50 MCH 28.3 pg (27.0-31.0) 03/13/18 05:50 MCHC Differential 33.6 pg (28.0-36.0) 03/13/18 05:50 RDW 11.9 % (11.5-20.0) 03/13/18 05:50 Plt Count 138 Th/cmm (150-400) L 03/13/18 05:50 MPV 7.5 fl 03/13/18 05:50 Add Manual Diff YES 03/13/18 05:50 Neutrophils % LOFT WORKER APPRENTICE 03/12/18 06:16 Band Neutrophils % 0 % (0-10) 03/13/18 05:50 Lymphocytes % LOFT WORKER APPRENTICE 03/12/18 06:16 Monocytes % LOFT WORKER APPRENTICE 03/12/18 06:16 Eosinophils % LOFT WORKER APPRENTICE 03/12/18 06:16 Basophils % LOFT WORKER APPRENTICE 03/12/18 06:16 Neutrophils (Manual) 66 % (40-80) 03/13/18 05:50 Lymphocytes 17 % (20-50) L 03/13/18 05:50 Monocytes 14 % (2-10) H 03/13/18 05:50 Eosinophils 3 % (0-5) 03/13/18 05:50 Basophils 0 % (0-3) 03/13/18 05:50 Smear Path Review 03/12/18 06:16 PT 10.1 SECONDS (9.5-11.5) 03/12/18 06:16 INR 0.97 (0.5-1.4) 03/12/18 06:16 PTT (Actin FS) 24.5 SECONDS (26.0-38.0) L 03/12/18 06:16 Sodium 133 mEq/L (136-145) L 03/13/18 05:50 Potassium 3.6 mEq/L (3.5-5.1) 03/13/18 05:50 Chloride 97 mEq/L (98-107) L 03/13/18 05:50 Carbon Dioxide 27.4 mEq/L (21.0-31.0) 03/13/18 05:50 Anion Gap 12.2 (7.0-16.0) 03/13/18 05:50 BUN 18 mg/dL (7-25) 03/13/18 05:50 Creatinine 0.4 mg/dL (0.6-1.2) L 03/13/18 05:50 Est GFR ( Amer) TNP 03/13/18 05:50 Est GFR (Non-Af Amer) TNP 03/13/18 05:50 BUN/Creatinine Ratio 45.0 03/13/18 05:50 Glucose 199 mg/dL (70-105) H 03/13/18 05:50 POC Glucose 237 MG/DL (70 - 105) H 03/11/18 01:35 Calcium 9.5 mg/dL (8.6-10.3) 03/13/18 05:50 Total Bilirubin 3.1 mg/dL (0.3-1.0) H 03/12/18 06:16 AST 35 U/L (13-39) 03/12/18 06:16 ALT 40 U/L (7-52) 03/12/18 06:16 Alkaline Phosphatase 76 U/L (34-104) 03/12/18 06:16 Total Protein 7.5 gm/dL (6.0-8.3) 03/12/18 06:16 Albumin 3.8 gm/dL (3.7-5.3) 03/12/18 06:16 Globulin 3.7 gm/dL 03/12/18 06:16 Albumin/Globulin Ratio 1.0 (1.0-1.8) 03/12/18 06:16 - Physical Exam Vitals and I&O: Vital Signs Temp 98.5 F 03/13/18 00:00 Pulse 118 03/13/18 00:00 Resp 17 03/14/18 08:00 BP 185/85 03/13/18 00:00 Pulse Ox 99 03/13/18 00:00 Intake & Output 03/13/18 03/14/18 03/14/18 18:59 06:59 18:59 Intake Total 500 500 Output Total 2 Balance 500 498 Weight (lbs) 58.06 kg 58.06 kg Intake: Oral 500 500 Output: Urine 2 Other: # Voids 3 # Bowel Movements 1 0 Weight Source Bedscale Bedscale Active Medications: Current Medications Acetaminophen (Tylenol) 650 mg PO Q4HR PRN PRN Reason: Mild Pain 1-3 / Temp above 100 Stop: 05/11/18 01:34 Acetaminophen/Hydrocodone Bitart (Fife 5mg/325mg) 1 tab PO Q4H PRN PRN Reason: Pain (Moderate) 8-10 Stop: 05/11/18 01:36 Al Hydrox/Mg Hydrox/Simethicone (Maalox) 30 ml PO Q4HR PRN PRN Reason: GI DISTRESS Stop: 05/11/18 01:34 Calcium/Vitamin D (Oscal W/Vitamin D) 1 tab PO DAILY [facility] Stop: 05/11/18 08:59 Last Admin: 03/14/18 08:40 Dose: Not Given Carvedilol (Coreg) 3.125 mg PO BID [facility] Stop: 05/11/18 08:59 Last Admin: 03/14/18 08:40 Dose: Not Given Diphenhydramine HCl (Benadryl 50 Mg/Ml) 50 mg IM BID PRN PRN Reason: AGITATION Stop: 05/11/18 12:29 Last Admin: 03/12/18 14:11 Dose: 50 mg Docusate Sodium (Colace) 100 mg PO DAILY [facility] Stop: 05/11/18 08:59 Last Admin: 03/14/18 08:40 Dose: Not Given Furosemide (Lasix) 40 mg PO DAILY [facility] Stop: 05/11/18 08:59 Last Admin: 03/14/18 08:40 Dose: Not Given Haloperidol Lactate (Haldol) 4 mg PO BID [facility]; Protocol Stop: 05/11/18 08:59 Last Admin: 03/14/18 08:40 Dose: Not Given Lactobacillus Rhamnosus (Culturelle 15b) 1 each PO DAILY [facility] Stop: 05/11/18 08:59 Last Admin: 03/14/18 08:40 Dose: Not Given Lisinopril (Zestril) 5 mg PO DAILY [facility] Stop: 05/11/18 08:59 Last Admin: 03/14/18 08:40 Dose: Not Given Loratadine (Claritin) 10 mg PO DAILY PRN PRN Reason: Itching Stop: 05/11/18 01:36 Magnesium Hydroxide (Milk Of Magnesia) 30 ml PO HS PRN PRN Reason: Constipation Stop: 05/11/18 01:36 Morphine Sulfate (Morphine) 2 mg IM Q4HR PRN PRN Reason: Pain (Severe) Stop: 05/11/18 14:18 Mupirocin (Bactroban Oint) 1 appl TP BID [facility] Stop: 03/17/18 09:59 Last Admin: 03/14/18 08:41 Dose: Not Given Valproate Sodium (Depakene) 250 mg PO BID [facility]; Protocol Stop: 05/11/18 08:59 Last Admin: 03/14/18 08:41 Dose: Not Given General: no acute distress, well developed, well nourished HEENT: atraumatic, normocephalic, PERRLA Neck: supple, no thyromegaly Cardiovascular: S1S2, regular Lungs: clear to auscultation bilaterally, clear to percussion Abdomen: soft, bowel sounds, no tender, no distended Extremities: other (Left hip tenderness.), no cyanosis, no clubbing, no edema Neurological: awake, alert, oriented Skin: intact Infectious Disease Assmt/Plan - Assessment Assessment: 1. Left hip fracture. 2. Agitation, psychosis, noncompliance. 3. Hypertension. 4. Osteoarthritis. 5. Noncompliance. - Plan Plan: Continue same treatment. Patient is 5270 hold so he has to be here in this facility. This is what I was told by the staff. She has hearing from court tomorrow. I will leave the decision to keep here or geropsych on Dr Pitts. I have informed patient's son in detail and inability to transfer patient to [facility]. He also understands gravity of her fracture, which may complication because of delay in the surgery, as patient has refused for any kind of intervention. Nutritional Asmnt/Malnutr-PDOC - Dietary Evaluation Malnutrition Findings (Please click <Entered> for more info): Nutritional Asmnt/Malnutrition Start: 03/12/18 17: 07 Text: Status: Complete Freq: Protocol: Document 03/12/18 17:08 SANDHYABEENA (Rec: 03/12/18 17:14 LCBEENA [email or web address]) Nutritional Asmnt/Malnutrition Patient General Information Nutritional Screening High Risk Diagnosis fracture of LT femure Pertinent Medical Hx/Surgical Hx dementia, psychosis, HTN, OA, cellulitis Subjective Information Pt seen sitting on bed at time of visit, alert, easily agitated. Pt stated food is ok so far. Per nurse, pt has been refusing medications and exams. Per EMR, PO intake 50% x 3 meals on 03/11. Current Diet Order/ Nutrition Support CCHO 60gm Pertinent Medications oscal w/vit D, colace, lasix, culturelle Pertinent Labs 03/12 Na 134, Cl 97, Cr 0.4, glucseo 220 03/11 POC 237 Nutritional Hx/Data Height 1.73 m Height (Calculated Centimeters) 172.7 Current Weight (lbs) 57.606 kg Weight (Calculated Kilograms) 57.6 Weight (Calculated Grams) 11184.2 Dana Body Weight 140 Body Mass Index (BMI) 19.3 Weight Status Approriate GI Symptoms GI Symptoms None Last BM 03/12 Difficult in: None Skin Integrity/Comment: bruise to arms, skin intact, fredy 15 Current %PO Fair (50-74%) Estimated Nutritional Goals BEE in Kcals: Using Current wt Calories/Kcals/Kg 25-30 Kcals Calculated 4550-5832 Protein: Using Current wt Protein g/k Protein Calculated 58 Fluid: ml 1450-1740ml (1ml/kcal) Nutritional Problem 1. Problem Problem altered nutrition related labs Etiology hyperglycemia Signs/Symptoms: glucse 220 at admission Malnutrition Alert Is there a minimum of two criteria No selected? Query Text:Check all the applicable criteria. A minimum of two criteria are recommended for diagnosis of either severe or non-severe malnutrition. Malnutrition Related to Morbid Obesity Malnutrition related to morbid obesity No Intervention/Recommendation Comments 1. Continue with CCHo 60gm diet as ordered. 2. Monitor PO intake, wt, labs and skin integrity 3. F/U as moderate risk in 3-5 days, 03/15-03/17, PO check 03/14 Expected Outcomes/Goals Expected Outcomes/Goals 1. PO intake to improve and meet at least 75% of nutritional needs. 2. Wt stability, skin to remain intact, labs to approach WNL.
--- NOTE | 2018-03-15 06:49 | Progress Notes ---
DATE: 03/14/2018 SUBJECTIVE: The patient is currently in the hospital, now claiming that her leg is not fractured and that she wants to go home and there is no way that she wants surgery. There is nothing wrong with my leg. It is not broken. The patient yelling, screaming, nonsensical, highly psychotic. Staff concerned about what to do next in regards to whether to send her to the Geropsych Unit or continue to monitor her on the Med-Surg unit. I did reach out to son today with a voice message. ASSESSMENT: The patient remains psychotic, delusional, unruly, unable to be really cared for at a lower level of care. PLAN: We will continue to monitor. We will await a phone call back from son. JOB# [id number]
[2018-03-15 07:13] LABS: % BASOPHILS 0.7 % (0.0-2.0); % EOSINOPHILS 2.6 % (0.0-5.0); % LYMPHOCYTES 16.9 % (20.0-50.0); % MONOCYTES 13.3 % (2.0-10.0); % NEUTROPHILS 66.5 % (40.0-80.0); BASOPHILE ABSOLUTE 0.1 Th/cumm (0-0.2); EOSINOPHILE ABSOLUTE 0.3 Th/cmm (0.1-0.4); HEMATOCRIT 33.7 % (41.0-60); HEMOGLOBIN 11.5 gm/dL (12-16); LYMPHOCYTE ABSOLUTE 1.7 Th/cmm (1.5-3.0); MEAN CELL VOLUME 84.8 fl (81-100); MEAN CORPUSCULAR HGB CONC 34.2 pg (28.0-36.0); MEAN PLATELET VOLUME 6.9 fl; MONOCYTE ABSOLUTE 1.3 Th/cmm (0.3-1.0); NEUTROPHILE ABSOLUTE 6.4 Th/cmm (1.8-8.0); PLATELET COUNT 197 Th/cmm (150-400); RED BLOOD COUNT 3.98 Mil/cmm (3.80-5.20); RED CELL DISTRIBUTION WIDTH 11.6 % (11.5-20.0); WHITE BLOOD COUNT 9.8 Th/cmm (4.8-10.8)
[2018-03-15 08:16] LABS: ANION GAP 12.2 (7.0-16.0); BUN - UREA NITROGEN 21 mg/dL (7-25); CALCIUM SERUM 9.4 mg/dL (8.6-10.3); CARBON DIOXIDE 26.3 mEq/L (21.0-31.0); CHLORIDE 99 mEq/L (98-107); CREATININE - SERUM 0.4 mg/dL (0.6-1.2); GLUCOSE 325 mg/dL (70-105); POTASSIUM SERUM 3.5 mEq/L (3.5-5.1); SODIUM SERUM 134 mEq/L (136-145)
[2018-03-15] MEDS: Calcium Carb/Vit D 500 mg/200 U Tab PO SCH (09:37)
[2018-03-15] MEDS: Multivitamin w/ Minerals Tab PO SCH (09:38)
[2018-03-15] MEDS: Haloperidol Lactate 2 mg/mL Udc PO SCH ×2 (09:38→17:01)
[2018-03-15] MEDS: Lactobacillus Rhamnosus GG 15 Billion CFU CAP.SPRINK PO SCH (09:38)
--- NOTE | 2018-03-15 14:47 | Infectious Disease Prog Note ---
Infectious Disease Subjective - Review of Systems Service Date: 03/15/18 Subjective: Patient is very noncompliant and not following instruction. There is no fever, no chest pain. pain in the left hip Infectious Disease Objective - Results Result Diagrams: 03/15/18 06:22 03/15/18 06:22 Recent Labs: Laboratory Last Values WBC 9.8 Th/cmm (4.8-10.8) 03/15/18 06:22 RBC 3.98 Mil/cmm (3.80-5.20) 03/15/18 06:22 Hgb 11.5 gm/dL (12-16) L 03/15/18 06:22 Hct 33.7 % (41.0-60) L 03/15/18 06:22 MCV 84.8 fl (81-100) 03/15/18 06:22 MCH 29.0 pg (27.0-31.0) 03/15/18 06:22 MCHC Differential 34.2 pg (28.0-36.0) 03/15/18 06:22 RDW 11.6 % (11.5-20.0) 03/15/18 06:22 Plt Count 197 Th/cmm (150-400) 03/15/18 06:22 MPV 6.9 fl 03/15/18 06:22 Add Manual Diff YES 03/13/18 05:50 Neutrophils % 66.5 % (40.0-80.0) 03/15/18 06:22 Band Neutrophils % 0 % (0-10) 03/13/18 05:50 Lymphocytes % 16.9 % (20.0-50.0) L 03/15/18 06:22 Monocytes % 13.3 % (2.0-10.0) H 03/15/18 06:22 Eosinophils % 2.6 % (0.0-5.0) 03/15/18 06:22 Basophils % 0.7 % (0.0-2.0) 03/15/18 06:22 Neutrophils (Manual) 66 % (40-80) 03/13/18 05:50 Lymphocytes 17 % (20-50) L 03/13/18 05:50 Monocytes 14 % (2-10) H 03/13/18 05:50 Eosinophils 3 % (0-5) 03/13/18 05:50 Basophils 0 % (0-3) 03/13/18 05:50 Smear Path Review 03/12/18 06:16 PT 10.1 SECONDS (9.5-11.5) 03/12/18 06:16 INR 0.97 (0.5-1.4) 03/12/18 06:16 PTT (Actin FS) 24.5 SECONDS (26.0-38.0) L 03/12/18 06:16 Sodium 134 mEq/L (136-145) L 03/15/18 06:22 Potassium 3.5 mEq/L (3.5-5.1) 03/15/18 06:22 Chloride 99 mEq/L (98-107) 03/15/18 06:22 Carbon Dioxide 26.3 mEq/L (21.0-31.0) 03/15/18 06:22 Anion Gap 12.2 (7.0-16.0) 03/15/18 06:22 BUN 21 mg/dL (7-25) 03/15/18 06:22 Creatinine 0.4 mg/dL (0.6-1.2) L 03/15/18 06:22 Est GFR ( Amer) TNP 03/15/18 06:22 Est GFR (Non-Af Amer) TNP 03/15/18 06:22 BUN/Creatinine Ratio 52.5 03/15/18 06:22 Glucose 325 mg/dL (70-105) H 03/15/18 06:22 POC Glucose 237 MG/DL (70 - 105) H 03/11/18 01:35 Calcium 9.4 mg/dL (8.6-10.3) 03/15/18 06:22 Total Bilirubin 3.1 mg/dL (0.3-1.0) H 03/12/18 06:16 AST 35 U/L (13-39) 03/12/18 06:16 ALT 40 U/L (7-52) 03/12/18 06:16 Alkaline Phosphatase 76 U/L (34-104) 03/12/18 06:16 Total Protein 7.5 gm/dL (6.0-8.3) 03/12/18 06:16 Albumin 3.8 gm/dL (3.7-5.3) 03/12/18 06:16 Globulin 3.7 gm/dL 03/12/18 06:16 Albumin/Globulin Ratio 1.0 (1.0-1.8) 03/12/18 06:16 - Physical Exam Vitals and I&O: Vital Signs Temp 98.5 F 03/13/18 00:00 Pulse 118 03/13/18 00:00 Resp 18 03/15/18 08:00 BP 185/85 03/13/18 00:00 Pulse Ox 99 03/13/18 00:00 Active Medications: Current Medications Acetaminophen (Tylenol) 650 mg PO Q4HR PRN PRN Reason: Mild Pain 1-3 / Temp above 100 Stop: 05/11/18 01:34 Acetaminophen/Hydrocodone Bitart ([place] 5mg/325mg) 1 tab PO Q4H PRN PRN Reason: Pain (Moderate) 8-10 Stop: 05/11/18 01:36 Al Hydrox/Mg Hydrox/Simethicone (Maalox) 30 ml PO Q4HR PRN PRN Reason: GI DISTRESS Stop: 05/11/18 01:34 Calcium/Vitamin D (Oscal W/Vitamin D) 1 tab PO DAILY [facility] Stop: 05/11/18 08:59 Last Admin: 03/15/18 09:37 Dose: Not Given Carvedilol (Coreg) 3.125 mg PO BID [facility] Stop: 05/11/18 08:59 Last Admin: 03/15/18 09:37 Dose: Not Given Diphenhydramine HCl (Benadryl 50 Mg/Ml) 50 mg IM BID PRN PRN Reason: AGITATION Stop: 05/11/18 12:29 Last Admin: 03/12/18 14:11 Dose: 50 mg Docusate Sodium (Colace) 100 mg PO DAILY [facility] Stop: 05/11/18 08:59 Last Admin: 03/15/18 09:37 Dose: Not Given Furosemide (Lasix) 40 mg PO DAILY [facility] Stop: 05/11/18 08:59 Last Admin: 03/15/18 09:38 Dose: Not Given Haloperidol Lactate (Haldol) 4 mg PO BID [facility]; Protocol Stop: 05/11/18 08:59 Last Admin: 03/15/18 09:38 Dose: Not Given Lactobacillus Rhamnosus (Culturelle 15b) 1 each PO DAILY [facility] Stop: 05/11/18 08:59 Last Admin: 03/15/18 09:38 Dose: Not Given Lisinopril (Zestril) 5 mg PO DAILY [facility] Stop: 05/11/18 08:59 Last Admin: 03/15/18 09:38 Dose: Not Given Loratadine (Claritin) 10 mg PO DAILY PRN PRN Reason: Itching Stop: 05/11/18 01:36 Magnesium Hydroxide (Milk Of Magnesia) 30 ml PO HS PRN PRN Reason: Constipation Stop: 05/11/18 01:36 Morphine Sulfate (Morphine) 2 mg IM Q4HR PRN PRN Reason: Pain (Severe) Stop: 05/11/18 14:18 Mupirocin (Bactroban Oint) 1 appl TP BID [facility] Stop: 03/17/18 09:59 Last Admin: 03/15/18 09:38 Dose: Not Given Valproate Sodium (Depakene) 250 mg PO BID [facility]; Protocol Stop: 05/11/18 08:59 Last Admin: 03/15/18 09:38 Dose: Not Given General: no acute distress, well developed, well nourished HEENT: atraumatic, normocephalic, PERRLA, EOMI Neck: supple, no thyromegaly Cardiovascular: S1S2, regular Lungs: clear to auscultation bilaterally, clear to percussion Abdomen: soft, no tender, no hepatomegaly Extremities: other (tenderness in the left hip), no cyanosis, no clubbing, no edema Neurological: awake, alert, oriented Skin: intact Infectious Disease Assmt/Plan - Assessment Assessment: 1. Left hip fracture. 2. Agitation, psychosis, noncompliance. 3. Hypertension. 4. Osteoarthritis. 5. Noncompliance. - Plan Plan: Continue same treatment. Patient is 5270 hold so he has to be here in this facility. This is what I was told by the staff. She has hearing from court tomorrow. I will leave the decision to keep here or geropsych on Dr Pitts. WIll ask for Ethics committee to decide on the hip fracture. Had court hearing today. CHACHA RN. Nutritional Asmnt/Malnutr-PDOC - Dietary Evaluation Malnutrition Findings (Please click <Entered> for more info): Nutritional Asmnt/Malnutrition Start: 03/12/18 17: 07 Text: Status: Complete Freq: Protocol: Document 03/12/18 17:08 LCHENG (Rec: 03/12/18 17:14 [email or web address]) Nutritional Asmnt/Malnutrition Patient General Information Nutritional Screening High Risk Diagnosis fracture of LT femure Pertinent Medical Hx/Surgical Hx dementia, psychosis, HTN, OA, cellulitis Subjective Information Pt seen sitting on bed at time of visit, alert, easily agitated. Pt stated food is ok so far. Per nurse, pt has been refusing medications and exams. Per EMR, PO intake 50% x 3 meals on 03/11. Current Diet Order/ [facility] Pertinent Medications oscal w/vit D, colace, lasix, culturelle Pertinent Labs 03/12 Na 134, Cl 97, Cr 0.4, glucseo 220 03/11 POC 237 Nutritional Hx/Data Height 1.73 m Height (Calculated Centimeters) 172.7 Current Weight (lbs) 57.606 kg Weight (Calculated Kilograms) 57.6 Weight (Calculated Grams) 20952.2 [place] Body Weight 140 Body Mass Index (BMI) 19.3 Weight Status Approriate GI Symptoms GI Symptoms None Last BM 03/12 Difficult in: None Skin Integrity/Comment: bruise to arms, skin intact, fredy 15 Current %PO Fair (50-74%) Estimated Nutritional Goals BEE in Kcals: Using Current wt Calories/Kcals/Kg 25-30 Kcals Calculated 7115-0090 Protein: Using Current wt Protein g/k Protein Calculated 58 Fluid: ml 1450-1740ml (1ml/kcal) Nutritional Problem 1. Problem Problem altered nutrition related labs Etiology hyperglycemia Signs/Symptoms: glucse 220 at admission Malnutrition Alert Is there a minimum of two criteria No selected? Query Text:Check all the applicable criteria. A minimum of two criteria are recommended for diagnosis of either severe or non-severe malnutrition. Malnutrition Related to Morbid Obesity Malnutrition related to morbid obesity No Intervention/Recommendation Comments 1. Continue with [facility] 60gm diet as ordered. 2. Monitor PO intake, wt, labs and skin integrity 3. F/U as moderate risk in 3-5 days, 03/15-03/17, PO check 03/14 Expected Outcomes/Goals Expected Outcomes/Goals 1. PO intake to improve and meet at least 75% of nutritional needs. 2. Wt stability, skin to remain intact, labs to approach WNL.
--- NOTE | 2018-03-15 23:57 | Progress Notes ---
DATE: 03/15/2018 SUBJECTIVE: The patient seen, chart reviewed, discussed with staff. The patient is screaming, yelling, telling me to get out. The patient continues to deny that she has a fracture, states that there is no way that she wants surgery. Poor historian. No overt side effects noted. No EPS. The patient disorganized, difficult exam. She is sitting, however not trying to get up. ASSESSMENT: The patient unruly, disorganized, delusional, claiming she has no fracture. PLAN: We will continue to monitor. The patient does not have the capacity to consent for surgery. Son has signed. We will continue to recommend that patient undergo surgery if needed to repair her fracture. JOB# [id number]
[2018-03-16] MEDS: Lactobacillus Rhamnosus GG 15 Billion CFU CAP.SPRINK PO SCH (08:08)
[2018-03-16] MEDS: Haloperidol Lactate 2 mg/mL Udc PO SCH ×2 (08:08→16:18)
[2018-03-16] MEDS: Multivitamin w/ Minerals Tab PO SCH (08:08)
[2018-03-16] MEDS: Calcium Carb/Vit D 500 mg/200 U Tab PO SCH (08:08)
--- NOTE | 2018-03-16 23:47 | Progress Notes ---
DATE: 03/16/2018 SUBJECTIVE: The patient seen, chart reviewed, discussed with staff. The patient is currently in the hospital. The patient is seen today, 03/16/2018. The patient continues to refuse treatment or surgery stating that she does not have a fracture and stating "it is all in your mind." Patient continues to refusing treatment or surgeries. The patient is currently in a 30-day hold and she is on a 30-day hold because she is refusing to sign voluntarily to be in the hospital, wants to leave immediately. So I felt necessary to validate her hold status. The patient's family wants the patient to go to the hospital in [place]. If transfer is validated I can discontinue the hold, so that she can be transferred. Although there are concerns that she may not want to transfer or be at other hospitals, so this could present as a problem. ASSESSMENT: The patient remains unruly, yelling, screaming, does not want to talk to me, get out, it is all in your mind, very delusional, psychotic. She is on Haldol Decanoate, but it is making very little difference in regards to her delusions. She is not agitated on a positive note in regards to being physically aggressive. PLAN: We will continue to monitor. We will discuss with nursing staff. Vitals were reviewed. JOB# [id number]
--- NOTE | 2018-03-17 08:10 | Progress Notes ---
DATE: 03/16/2018 SUBJECTIVE: The patient is sitting up in chair in comfortable position. However, she is very agitated and very aggressive. She did not allow me to do further examination. OBJECTIVE: VITAL SIGNS: Show temperature is 98.5 degrees Fahrenheit, respirations 18. Further examination cannot be performed. LABORATORY DATA: Current lab shows WBC count 9800, hemoglobin 11.5, hematocrit 33.7, platelets of 197,000, neutrophils 66.5%. Sodium 134, potassium 3.5, chloride 99, bicarbonate is 26.2, platelets are ASSESSMENT: 1. Fracture of the left femur. 2. Agitation, psychosis, noncompliance. 3. Hypertension. 4. Osteoarthritis. 5. Noncompliance. PLAN: I have discussed with Dr. Wong, the BLOOD TYPER, and he called Dr. Thornton and surgery was scheduled for Monday or Monday. I have discussed with the patient's son in detail and he agreed for possible surgery. PI ____ refused to take the patient. The patient's son was also informed of this fact. JOB# [id number]
[2018-03-17] MEDS: Calcium Carb/Vit D 500 mg/200 U Tab PO SCH (10:14)
[2018-03-17] MEDS: Haloperidol Lactate 2 mg/mL Udc PO SCH ×2 (10:15→18:27)
[2018-03-17] MEDS: Multivitamin w/ Minerals Tab PO SCH (10:15)
[2018-03-17] MEDS: Lactobacillus Rhamnosus GG 15 Billion CFU CAP.SPRINK PO SCH (10:15)
[2018-03-18] MEDS: Calcium Carb/Vit D 500 mg/200 U Tab PO SCH (08:33)
[2018-03-18] MEDS: Haloperidol Lactate 2 mg/mL Udc PO SCH ×2 (08:35→17:56)
[2018-03-18] MEDS: Lactobacillus Rhamnosus GG 15 Billion CFU CAP.SPRINK PO SCH (08:35)
[2018-03-18] MEDS: Multivitamin w/ Minerals Tab PO SCH (08:35)
--- NOTE | 2018-03-18 14:49 | General Progress Note ---
Subjective - Review of Systems Service Date: 03/18/18 (Follow up re: left hip fracture) Subjective: Not muich pain. Sitting up in chair. Attempt to examine her "DON'T TOUCH ME" I AM TRYING (AGAIN) to get her to surgery (tomorrow) to pin her hip fracture. The nurses today couldn't make it clear to me whether there is a valid consent for surgery on Mrs. Moody; someone ? a relative ? told the nurse (on the phone) to go ahead with the surgery. I asked the nursing press shop supervisor (11 am) to follow the procedure in the hospital policy manual about how to execute a proper consent for surgery in this unaccompanied psychiatric patient. Objective - Results Result Diagrams: 03/15/18 06:22 03/15/18 06:22 Recent Labs: Laboratory Last Values WBC 9.8 Th/cmm (4.8-10.8) 03/15/18 06:22 RBC 3.98 Mil/cmm (3.80-5.20) 03/15/18 06:22 Hgb 11.5 gm/dL (12-16) L 03/15/18 06:22 Hct 33.7 % (41.0-60) L 03/15/18 06:22 MCV 84.8 fl (81-100) 03/15/18 06:22 MCH 29.0 pg (27.0-31.0) 03/15/18 06:22 MCHC Differential 34.2 pg (28.0-36.0) 03/15/18 06:22 RDW 11.6 % (11.5-20.0) 03/15/18 06:22 Plt Count 197 Th/cmm (150-400) 03/15/18 06:22 MPV 6.9 fl 03/15/18 06:22 Add Manual Diff YES 03/13/18 05:50 Neutrophils % 66.5 % (40.0-80.0) 03/15/18 06:22 Band Neutrophils % 0 % (0-10) 03/13/18 05:50 Lymphocytes % 16.9 % (20.0-50.0) L 03/15/18 06:22 Monocytes % 13.3 % (2.0-10.0) H 03/15/18 06:22 Eosinophils % 2.6 % (0.0-5.0) 03/15/18 06:22 Basophils % 0.7 % (0.0-2.0) 03/15/18 06:22 Neutrophils (Manual) 66 % (40-80) 03/13/18 05:50 Lymphocytes 17 % (20-50) L 03/13/18 05:50 Monocytes 14 % (2-10) H 03/13/18 05:50 Eosinophils 3 % (0-5) 03/13/18 05:50 Basophils 0 % (0-3) 03/13/18 05:50 Smear Path Review 03/12/18 06:16 PT 10.1 SECONDS (9.5-11.5) 03/12/18 06:16 INR 0.97 (0.5-1.4) 03/12/18 06:16 PTT (Actin FS) 24.5 SECONDS (26.0-38.0) L 03/12/18 06:16 Sodium 134 mEq/L (136-145) L 03/15/18 06:22 Potassium 3.5 mEq/L (3.5-5.1) 03/15/18 06:22 Chloride 99 mEq/L (98-107) 03/15/18 06:22 Carbon Dioxide 26.3 mEq/L (21.0-31.0) 03/15/18 06:22 Anion Gap 12.2 (7.0-16.0) 03/15/18 06:22 BUN 21 mg/dL (7-25) 03/15/18 06:22 Creatinine 0.4 mg/dL (0.6-1.2) L 03/15/18 06:22 Est GFR ( Amer) TNP 03/15/18 06:22 Est GFR (Non-Af Amer) TNP 03/15/18 06:22 BUN/Creatinine Ratio 52.5 03/15/18 06:22 Glucose 325 mg/dL (70-105) H 03/15/18 06:22 POC Glucose 237 MG/DL (70 - 105) H 03/11/18 01:35 Calcium 9.4 mg/dL (8.6-10.3) 03/15/18 06:22 Total Bilirubin 3.1 mg/dL (0.3-1.0) H 03/12/18 06:16 AST 35 U/L (13-39) 03/12/18 06:16 ALT 40 U/L (7-52) 03/12/18 06:16 Alkaline Phosphatase 76 U/L (34-104) 03/12/18 06:16 Total Protein 7.5 gm/dL (6.0-8.3) 03/12/18 06:16 Albumin 3.8 gm/dL (3.7-5.3) 03/12/18 06:16 Globulin 3.7 gm/dL 03/12/18 06:16 Albumin/Globulin Ratio 1.0 (1.0-1.8) 03/12/18 06:16 - Physical Exam Vitals and I&O: Vital Signs Temp 98.5 F 03/18/18 12:16 Pulse 74 03/18/18 12:16 Resp 18 03/18/18 12:16 BP 91/46 03/18/18 12:16 Pulse Ox 97 03/18/18 12:16 Intake & Output 03/17/18 03/18/18 03/18/18 18:59 06:59 18:59 Intake Total 600 400 Balance 600 400 Weight (lbs) 58.06 kg 58.06 kg Intake: Oral 600 400 Other: # Voids 3 3 # Bowel Movements 2 1 Stool Characteristics Formed Brown Weight Source Estimated Estimated Active Medications: Current Medications Acetaminophen (Tylenol) 650 mg PO Q4HR PRN PRN Reason: Mild Pain 1-3 / Temp above 100 Stop: 05/11/18 01:34 Acetaminophen/Hydrocodone Bitart ([place] 5mg/325mg) 1 tab PO Q4H PRN PRN Reason: Pain (Moderate) 8-10 Stop: 05/11/18 01:36 Al Hydrox/Mg Hydrox/Simethicone (Maalox) 30 ml PO Q4HR PRN PRN Reason: GI DISTRESS Stop: 05/11/18 01:34 Calcium/Vitamin D (Oscal W/Vitamin D) 1 tab PO DAILY [facility] Stop: 05/11/18 08:59 Last Admin: 03/18/18 08:33 Dose: Not Given Carvedilol (Coreg) 3.125 mg PO BID [facility] Stop: 05/11/18 08:59 Last Admin: 03/18/18 08:33 Dose: Not Given Diphenhydramine HCl (Benadryl 50 Mg/Ml) 50 mg IM BID PRN PRN Reason: AGITATION Stop: 05/11/18 12:29 Last Admin: 03/12/18 14:11 Dose: 50 mg Docusate Sodium (Colace) 100 mg PO DAILY [facility] Stop: 05/11/18 08:59 Last Admin: 03/18/18 08:35 Dose: Not Given Furosemide (Lasix) 40 mg PO DAILY [facility] Stop: 05/11/18 08:59 Last Admin: 03/18/18 08:35 Dose: Not Given Haloperidol Lactate (Haldol) 4 mg PO BID [facility]; Protocol Stop: 05/11/18 08:59 Last Admin: 03/18/18 08:35 Dose: Not Given Lactobacillus Rhamnosus (Culturelle 15b) 1 each PO DAILY [facility] Stop: 05/11/18 08:59 Last Admin: 03/18/18 08:35 Dose: Not Given Lisinopril (Zestril) 5 mg PO DAILY [facility] Stop: 05/11/18 08:59 Last Admin: 03/18/18 08:35 Dose: Not Given Loratadine (Claritin) 10 mg PO DAILY PRN PRN Reason: Itching Stop: 05/11/18 01:36 Magnesium Hydroxide (Milk Of Magnesia) 30 ml PO HS PRN PRN Reason: Constipation Stop: 05/11/18 01:36 Morphine Sulfate (Morphine) 2 mg IM Q4HR PRN PRN Reason: Pain (Severe) Stop: 05/11/18 14:18 Valproate Sodium (Depakene) 250 mg PO BID [facility]; Protocol Stop: 05/11/18 08:59 Last Admin: 03/18/18 08:35 Dose: Not Given Nutritional Asmnt/Malnutr-PDOC - Dietary Evaluation Malnutrition Findings (Please click <Entered> for more info): Nutritional Asmnt/Malnutrition Start: 03/12/18 17: 07 Text: Status: Complete Freq: Protocol: Document 03/12/18 17:08 LCHENG (Rec: 03/12/18 17:14 [email or web address]) Nutritional Asmnt/Malnutrition Patient General Information Nutritional Screening High Risk Diagnosis fracture of LT femure Pertinent Medical Hx/Surgical Hx dementia, psychosis, HTN, OA, cellulitis Subjective Information Pt seen sitting on bed at time of visit, alert, easily agitated. Pt stated food is ok so far. Per nurse, pt has been refusing medications and exams. Per EMR, PO intake 50% x 3 meals on 03/11. Current Diet Order/ Nutrition Support [facility] 60gm Pertinent Medications oscal w/vit D, colace, lasix, culturelle Pertinent Labs 03/12 Na 134, Cl 97, Cr 0.4, glucseo 220 03/11 POC 237 Nutritional Hx/Data Height 1.73 m Height (Calculated Centimeters) 172.7 Current Weight (lbs) 57.606 kg Weight (Calculated Kilograms) 57.6 Weight (Calculated Grams) 29204.2 [place] Body Weight 140 Body Mass Index (BMI) 19.3 Weight Status Approriate GI Symptoms GI Symptoms None Last BM 03/12 Difficult in: None Skin Integrity/Comment: bruise to arms, skin intact, fredy 15 Current %PO Fair (50-74%) Estimated Nutritional Goals BEE in Kcals: Using Current wt Calories/Kcals/Kg 25-30 Kcals Calculated 6413-3469 Protein: Using Current wt Protein g/k Protein Calculated 58 Fluid: ml 1450-1740ml (1ml/kcal) Nutritional Problem 1. Problem Problem altered nutrition related labs Etiology hyperglycemia Signs/Symptoms: glucse 220 at admission Malnutrition Alert Is there a minimum of two criteria No selected? Query Text:Check all the applicable criteria. A minimum of two criteria are recommended for diagnosis of either severe or non-severe malnutrition. Malnutrition Related to Morbid Obesity Malnutrition related to morbid obesity No Intervention/Recommendation Comments 1. Continue with [facility] 60gm diet as ordered. 2. Monitor PO intake, wt, labs and skin integrity 3. F/U as moderate risk in 3-5 days, 03/15-03/17, PO check 03/14 Expected Outcomes/Goals Expected Outcomes/Goals 1. PO intake to improve and meet at least 75% of nutritional needs. 2. Wt stability, skin to remain intact, labs to approach WNL.
--- NOTE | 2018-03-19 04:44 | Progress Notes ---
DATE: 03/18/2018 SUBJECTIVE: The patient lying in bed, not in acute distress. No fever, no chills. The patient is very noncompliant and not allowing for the physical examination. OBJECTIVE: CURRENT VITAL SIGNS: Show temperature 98.5, pulse 74, respirations 18, blood pressure 91/46. CHEST: Clear. HEART: S1, S2 within normal limit. LABORATORY DATA: WBC count is 9800, hemoglobin 11.5, hematocrit 33.7, platelets are 197,000, neutrophil is 66.5%. Sodium 134, potassium 3.5, chloride 99, bicarbonate is 26, BUN is 21, creatinine 0.4, glucose is 325. IMPRESSION: 1. Fracture of the left femur. 2. Agitation, psychosis, noncompliance. 3. Hypertension. 4. Osteoarthritis. 5. Noncompliance. RECOMMENDATION: Surgery is scheduled for tomorrow. JOB# [id number]
[2018-03-19 05:37] LABS: % BASOPHILS 1.8 % (0.0-2.0); % EOSINOPHILS 3.3 % (0.0-5.0); % LYMPHOCYTES 24.1 % (20.0-50.0); % NEUTROPHILS 59.8 % (40.0-80.0); BASOPHILE ABSOLUTE 0.2 Th/cumm (0-0.2); EOSINOPHILE ABSOLUTE 0.3 Th/cmm (0.1-0.4); HEMATOCRIT 36.2 % (41.0-60); HEMOGLOBIN 12.2 gm/dL (12-16); LYMPHOCYTE ABSOLUTE 2.2 Th/cmm (1.5-3.0); MEAN CELL VOLUME 84.7 fl (81-100); MEAN CORPUSCULAR HEMOGLOBIN 28.6 pg (27.0-31.0); MEAN CORPUSCULAR HGB CONC 33.8 pg (28.0-36.0); MEAN PLATELET VOLUME 6.6 fl; NEUTROPHILE ABSOLUTE 5.6 Th/cmm (1.8-8.0); PLATELET COUNT 320 Th/cmm (150-400); RED BLOOD COUNT 4.27 Mil/cmm (3.80-5.20); RED CELL DISTRIBUTION WIDTH 11.8 % (11.5-20.0); WHITE BLOOD COUNT 9.3 Th/cmm (4.8-10.8)
[2018-03-19 06:27] LABS: ANION GAP 12.3 (7.0-16.0); BUN - UREA NITROGEN 13 mg/dL (7-25); CALCIUM SERUM 9.7 mg/dL (8.6-10.3); CARBON DIOXIDE 27.6 mEq/L (21.0-31.0); CHLORIDE 93 mEq/L (98-107); CREATININE - SERUM 0.4 mg/dL (0.6-1.2); GLUCOSE 261 mg/dL (70-105); POTASSIUM SERUM 3.9 mEq/L (3.5-5.1); SODIUM SERUM 129 mEq/L (136-145)
[2018-03-19] MEDS: Calcium Carb/Vit D 500 mg/200 U Tab PO SCH (09:56)
[2018-03-19] MEDS: Haloperidol Lactate 2 mg/mL Udc PO SCH ×2 (09:57→17:27)
[2018-03-19] MEDS: Lactobacillus Rhamnosus GG 15 Billion CFU CAP.SPRINK PO SCH (09:57)
[2018-03-19] MEDS: Multivitamin w/ Minerals Tab PO SCH (09:58)
[2018-03-20] MEDS: Multivitamin w/ Minerals Tab PO SCH (08:39)
[2018-03-20] MEDS: Lactobacillus Rhamnosus GG 15 Billion CFU CAP.SPRINK PO SCH (08:39)
[2018-03-20] MEDS: Calcium Carb/Vit D 500 mg/200 U Tab PO SCH (08:39)
[2018-03-20] MEDS: Haloperidol Lactate 2 mg/mL Udc PO SCH ×2 (08:40→17:20)
--- NOTE | 2018-03-20 13:29 | Progress Notes ---
DATE: 03/20/2018 SUBJECTIVE: Chart reviewed and the patient interviewed. Also discussed the patient's condition with the staff and reviewed records and labs. "If you feel like that." The patient is still in angry and in irritable mood and she is still agitated and restless. The patient also is still actively hallucinating and have disorganized thoughts and unable to provide coherent conversation or any safe plan for self-care. On the other hand, the patient continued to comply with taking her medications and no side effects of Depakote or Haldol. She is still in irritable and angry mood. Otherwise compliant with taking medications. ASSESSMENT: The patient is still agitated and irritable. TREATMENT PLAN: Continue current medications and continue to monitor behavior and followup. [facility]# [id number]
--- NOTE | 2018-03-20 17:44 | Internal Medicine Prog Note ---
Internal Medicine Objective - Results Result Diagrams: 03/19/18 05:33 03/19/18 05:33 Recent Labs: Laboratory Last Values WBC 9.3 Th/cmm (4.8-10.8) 03/19/18 05:33 RBC 4.27 Mil/cmm (3.80-5.20) 03/19/18 05:33 Hgb 12.2 gm/dL (12-16) 03/19/18 05:33 Hct 36.2 % (41.0-60) L 03/19/18 05:33 MCV 84.7 fl (81-100) 03/19/18 05:33 MCH 28.6 pg (27.0-31.0) 03/19/18 05:33 MCHC Differential 33.8 pg (28.0-36.0) 03/19/18 05:33 RDW 11.8 % (11.5-20.0) 03/19/18 05:33 Plt Count 320 Th/cmm (150-400) 03/19/18 05:33 MPV 6.6 fl 03/19/18 05:33 Add Manual Diff YES 03/13/18 05:50 Neutrophils % 59.8 % (40.0-80.0) 03/19/18 05:33 Band Neutrophils % 0 % (0-10) 03/13/18 05:50 Lymphocytes % 24.1 % (20.0-50.0) 03/19/18 05:33 Monocytes % 11.0 % (2.0-10.0) H 03/19/18 05:33 Eosinophils % 3.3 % (0.0-5.0) 03/19/18 05:33 Basophils % 1.8 % (0.0-2.0) 03/19/18 05:33 Neutrophils (Manual) 66 % (40-80) 03/13/18 05:50 Lymphocytes 17 % (20-50) L 03/13/18 05:50 Monocytes 14 % (2-10) H 03/13/18 05:50 Eosinophils 3 % (0-5) 03/13/18 05:50 Basophils 0 % (0-3) 03/13/18 05:50 Smear Path Review 03/12/18 06:16 PT 10.1 SECONDS (9.5-11.5) 03/12/18 06:16 INR 0.97 (0.5-1.4) 03/12/18 06:16 PTT (Actin FS) 24.5 SECONDS (26.0-38.0) L 03/12/18 06:16 Sodium 129 mEq/L (136-145) L 03/19/18 05:33 Potassium 3.9 mEq/L (3.5-5.1) 03/19/18 05:33 Chloride 93 mEq/L (98-107) L 03/19/18 05:33 Carbon Dioxide 27.6 mEq/L (21.0-31.0) 03/19/18 05:33 Anion Gap 12.3 (7.0-16.0) 03/19/18 05:33 BUN 13 mg/dL (7-25) 03/19/18 05:33 Creatinine 0.4 mg/dL (0.6-1.2) L 03/19/18 05:33 Est GFR ( Amer) TNP 03/19/18 05:33 Est GFR (Non-Af Amer) TNP 03/19/18 05:33 BUN/Creatinine Ratio 32.5 03/19/18 05:33 Glucose 261 mg/dL (70-105) H 03/19/18 05:33 POC Glucose 237 MG/DL (70 - 105) H 03/11/18 01:35 Calcium 9.7 mg/dL (8.6-10.3) 03/19/18 05:33 Total Bilirubin 3.1 mg/dL (0.3-1.0) H 03/12/18 06:16 AST 35 U/L (13-39) 03/12/18 06:16 ALT 40 U/L (7-52) 03/12/18 06:16 Alkaline Phosphatase 76 U/L (34-104) 03/12/18 06:16 Total Protein 7.5 gm/dL (6.0-8.3) 03/12/18 06:16 Albumin 3.8 gm/dL (3.7-5.3) 03/12/18 06:16 Globulin 3.7 gm/dL 03/12/18 06:16 Albumin/Globulin Ratio 1.0 (1.0-1.8) 03/12/18 06:16 - Physical Exam Vitals and I&O: Vital Signs Temp 98.5 F 03/18/18 12:16 Pulse 74 03/18/18 12:16 Resp 17 03/20/18 08:00 BP 91/46 03/18/18 12:16 Pulse Ox 97 03/18/18 12:16 Intake & Output 03/19/18 03/20/18 03/20/18 18:59 06:59 18:59 Intake Total 500 500 Balance 500 500 Weight (lbs) 58.06 kg 58.06 kg Intake: Oral 500 500 Other: # Voids 3 5 # Bowel Movements 2 2 Weight Source Bedscale Bedscale Active Medications: Current Medications Acetaminophen (Tylenol) 650 mg PO Q4HR PRN PRN Reason: Mild Pain 1-3 / Temp above 100 Stop: 05/11/18 01:34 Acetaminophen/Hydrocodone Bitart ([place] 5mg/325mg) 1 tab PO Q4H PRN PRN Reason: Pain (Moderate) 8-10 Stop: 05/11/18 01:36 Al Hydrox/Mg Hydrox/Simethicone (Maalox) 30 ml PO Q4HR PRN PRN Reason: GI DISTRESS Stop: 05/11/18 01:34 Calcium/Vitamin D (Oscal W/Vitamin D) 1 tab PO DAILY [facility] Stop: 05/11/18 08:59 Last Admin: 03/20/18 08:39 Dose: 1 tab Carvedilol (Coreg) 3.125 mg PO BID [facility] Stop: 05/11/18 08:59 Last Admin: 03/20/18 17:20 Dose: Not Given Diphenhydramine HCl (Benadryl 50 Mg/Ml) 50 mg IM BID PRN PRN Reason: AGITATION Stop: 05/11/18 12:29 Last Admin: 03/12/18 14:11 Dose: 50 mg Docusate Sodium (Colace) 100 mg PO DAILY [facility] Stop: 05/11/18 08:59 Last Admin: 03/20/18 08:40 Dose: Not Given Furosemide (Lasix) 40 mg PO DAILY [facility] Stop: 05/11/18 08:59 Last Admin: 03/20/18 08:40 Dose: Not Given Haloperidol Lactate (Haldol) 4 mg PO BID [facility]; Protocol Stop: 05/11/18 08:59 Last Admin: 03/20/18 17:20 Dose: Not Given Lactobacillus Rhamnosus (Culturelle 15b) 1 each PO DAILY [facility] Stop: 05/11/18 08:59 Last Admin: 03/20/18 08:39 Dose: 1 each Lisinopril (Zestril) 5 mg PO DAILY [facility] Stop: 05/11/18 08:59 Last Admin: 03/20/18 08:41 Dose: Not Given Loratadine (Claritin) 10 mg PO DAILY PRN PRN Reason: Itching Stop: 05/11/18 01:36 Magnesium Hydroxide (Milk Of Magnesia) 30 ml PO HS PRN PRN Reason: Constipation Stop: 05/11/18 01:36 Morphine Sulfate (Morphine) 2 mg IM Q4HR PRN PRN Reason: Pain (Severe) Stop: 05/11/18 14:18 Valproate Sodium (Depakene) 250 mg PO BID [facility]; Protocol Stop: 05/11/18 08:59 Last Admin: 03/20/18 17:20 Dose: Not Given Nutritional Asmnt/Malnutr-PDOC - Dietary Evaluation Malnutrition Findings (Please click <Entered> for more info): Nutritional Asmnt/Malnutrition Start: 03/12/18 17: 07 Text: Status: Complete Freq: Protocol: Document 03/12/18 17:08 LCHENG (Rec: 03/12/18 17:14 [email or web address] [email or web address]) Nutritional Asmnt/Malnutrition Patient General Information Nutritional Screening High Risk Diagnosis fracture of LT femure Pertinent Medical Hx/Surgical Hx dementia, psychosis, HTN, OA, cellulitis Subjective Information Pt seen sitting on bed at time of visit, alert, easily agitated. Pt stated food is ok so far. Per nurse, pt has been refusing medications and exams. Per EMR, PO intake 50% x 3 meals on 03/11. Current Diet Order/ Nutrition Support CCHO 60gm Pertinent Medications oscal w/vit D, colace, lasix, culturelle Pertinent Labs 03/12 Na 134, Cl 97, Cr 0.4, glucseo 220 03/11 POC 237 Nutritional Hx/Data Height 1.73 m Height (Calculated Centimeters) 172.7 Current Weight (lbs) 57.606 kg Weight (Calculated Kilograms) 57.6 Weight (Calculated Grams) 75109.2 [place] Body Weight 140 Body Mass Index (BMI) 19.3 Weight Status Approriate GI Symptoms GI Symptoms None Last BM 03/12 Difficult in: None Skin Integrity/Comment: bruise to arms, skin intact, fredy 15 Current %PO Fair (50-74%) Estimated Nutritional Goals BEE in Kcals: Using Current wt Calories/Kcals/Kg 25-30 Kcals Calculated 5448-9626 Protein: Using Current wt Protein g/k Protein Calculated 58 Fluid: ml 1450-1740ml (1ml/kcal) Nutritional Problem 1. Problem Problem altered nutrition related labs Etiology hyperglycemia Signs/Symptoms: glucse 220 at admission Malnutrition Alert Is there a minimum of two criteria No selected? Query Text:Check all the applicable criteria. A minimum of two criteria are recommended for diagnosis of either severe or non-severe malnutrition. Malnutrition Related to Morbid Obesity Malnutrition related to morbid obesity No Intervention/Recommendation Comments 1. Continue with [facility] 60gm diet as ordered. 2. Monitor PO intake, wt, labs and skin integrity 3. F/U as moderate risk in 3-5 days, 03/15-03/17, PO check 03/14 Expected Outcomes/Goals Expected Outcomes/Goals 1. PO intake to improve and meet at least 75% of nutritional needs. 2. Wt stability, skin to remain intact, labs to approach WNL.
[2018-03-21] MEDS: Calcium Carb/Vit D 500 mg/200 U Tab PO SCH (08:50)
[2018-03-21] MEDS: Haloperidol Lactate 2 mg/mL Udc PO SCH ×2 (08:51→16:39)
[2018-03-21] MEDS: Multivitamin w/ Minerals Tab PO SCH (08:51)
[2018-03-21] MEDS: Lactobacillus Rhamnosus GG 15 Billion CFU CAP.SPRINK PO SCH (08:51)
--- NOTE | 2018-03-21 14:54 | General Progress Note ---
Subjective - Review of Systems Events since last encounter: pt. still agitated and irritable, no acute distress Objective - Results Result Diagrams: 03/19/18 05:33 03/19/18 05:33 Recent Labs: Laboratory Last Values WBC 9.3 Th/cmm (4.8-10.8) 03/19/18 05:33 RBC 4.27 Mil/cmm (3.80-5.20) 03/19/18 05:33 Hgb 12.2 gm/dL (12-16) 03/19/18 05:33 Hct 36.2 % (41.0-60) L 03/19/18 05:33 MCV 84.7 fl (81-100) 03/19/18 05:33 MCH 28.6 pg (27.0-31.0) 03/19/18 05:33 MCHC Differential 33.8 pg (28.0-36.0) 03/19/18 05:33 RDW 11.8 % (11.5-20.0) 03/19/18 05:33 Plt Count 320 Th/cmm (150-400) 03/19/18 05:33 MPV 6.6 fl 03/19/18 05:33 Add Manual Diff YES 03/13/18 05:50 Neutrophils % 59.8 % (40.0-80.0) 03/19/18 05:33 Band Neutrophils % 0 % (0-10) 03/13/18 05:50 Lymphocytes % 24.1 % (20.0-50.0) 03/19/18 05:33 Monocytes % 11.0 % (2.0-10.0) H 03/19/18 05:33 Eosinophils % 3.3 % (0.0-5.0) 03/19/18 05:33 Basophils % 1.8 % (0.0-2.0) 03/19/18 05:33 Neutrophils (Manual) 66 % (40-80) 03/13/18 05:50 Lymphocytes 17 % (20-50) L 03/13/18 05:50 Monocytes 14 % (2-10) H 03/13/18 05:50 Eosinophils 3 % (0-5) 03/13/18 05:50 Basophils 0 % (0-3) 03/13/18 05:50 Smear Path Review 03/12/18 06:16 PT 10.1 SECONDS (9.5-11.5) 03/12/18 06:16 INR 0.97 (0.5-1.4) 03/12/18 06:16 PTT (Actin FS) 24.5 SECONDS (26.0-38.0) L 03/12/18 06:16 Sodium 129 mEq/L (136-145) L 03/19/18 05:33 Potassium 3.9 mEq/L (3.5-5.1) 03/19/18 05:33 Chloride 93 mEq/L (98-107) L 03/19/18 05:33 Carbon Dioxide 27.6 mEq/L (21.0-31.0) 03/19/18 05:33 Anion Gap 12.3 (7.0-16.0) 03/19/18 05:33 BUN 13 mg/dL (7-25) 03/19/18 05:33 Creatinine 0.4 mg/dL (0.6-1.2) L 03/19/18 05:33 Est GFR ( Amer) TNP 03/19/18 05:33 Est GFR (Non-Af Amer) TNP 03/19/18 05:33 BUN/Creatinine Ratio 32.5 03/19/18 05:33 Glucose 261 mg/dL (70-105) H 03/19/18 05:33 POC Glucose 237 MG/DL (70 - 105) H 03/11/18 01:35 Calcium 9.7 mg/dL (8.6-10.3) 03/19/18 05:33 Total Bilirubin 3.1 mg/dL (0.3-1.0) H 03/12/18 06:16 AST 35 U/L (13-39) 03/12/18 06:16 ALT 40 U/L (7-52) 03/12/18 06:16 Alkaline Phosphatase 76 U/L (34-104) 03/12/18 06:16 Total Protein 7.5 gm/dL (6.0-8.3) 03/12/18 06:16 Albumin 3.8 gm/dL (3.7-5.3) 03/12/18 06:16 Globulin 3.7 gm/dL 03/12/18 06:16 Albumin/Globulin Ratio 1.0 (1.0-1.8) 03/12/18 06:16 - Physical Exam Vitals and I&O: Vital Signs Temp 98.5 F 03/18/18 12:16 Pulse 74 03/18/18 12:16 Resp 18 03/21/18 08:00 BP 91/46 03/18/18 12:16 Pulse Ox 97 03/18/18 12:16 Intake & Output 03/20/18 03/21/18 03/21/18 18:59 06:59 18:59 Intake Total 850 300 Balance 850 300 Weight (lbs) 58.196 kg 58.06 kg Intake: Oral 850 300 Other: # Voids 4 3 # Bowel Movements 3 Weight Source Bedscale Bedscale Active Medications: Current Medications Acetaminophen (Tylenol) 650 mg PO Q4HR PRN PRN Reason: Mild Pain 1-3 / Temp above 100 Stop: 05/11/18 01:34 Acetaminophen/Hydrocodone Bitart ([place] 5mg/325mg) 1 tab PO Q4H PRN PRN Reason: Pain (Moderate) 8-10 Stop: 05/11/18 01:36 Al Hydrox/Mg Hydrox/Simethicone (Maalox) 30 ml PO Q4HR PRN PRN Reason: GI DISTRESS Stop: 05/11/18 01:34 Calcium/Vitamin D (Oscal W/Vitamin D) 1 tab PO DAILY [facility] Stop: 05/11/18 08:59 Last Admin: 03/21/18 08:50 Dose: Not Given Carvedilol (Coreg) 3.125 mg PO BID [facility] Stop: 05/11/18 08:59 Last Admin: 03/21/18 08:50 Dose: Not Given Diphenhydramine HCl (Benadryl 50 Mg/Ml) 50 mg IM BID PRN PRN Reason: AGITATION Stop: 05/11/18 12:29 Last Admin: 03/12/18 14:11 Dose: 50 mg Docusate Sodium (Colace) 100 mg PO DAILY [facility] Stop: 05/11/18 08:59 Last Admin: 03/21/18 08:50 Dose: Not Given Furosemide (Lasix) 40 mg PO DAILY [facility] Stop: 05/11/18 08:59 Last Admin: 03/21/18 08:50 Dose: Not Given Haloperidol Lactate (Haldol) 4 mg PO BID [facility]; Protocol Stop: 05/11/18 08:59 Last Admin: 03/21/18 08:51 Dose: Not Given Lactobacillus Rhamnosus (Culturelle 15b) 1 each PO DAILY [facility] Stop: 05/11/18 08:59 Last Admin: 03/21/18 08:51 Dose: Not Given Lisinopril (Zestril) 5 mg PO DAILY [facility] Stop: 05/11/18 08:59 Last Admin: 03/21/18 08:51 Dose: Not Given Loratadine (Claritin) 10 mg PO DAILY PRN PRN Reason: Itching Stop: 05/11/18 01:36 Magnesium Hydroxide (Milk Of Magnesia) 30 ml PO HS PRN PRN Reason: Constipation Stop: 05/11/18 01:36 Morphine Sulfate (Morphine) 2 mg IM Q4HR PRN PRN Reason: Pain (Severe) Stop: 05/11/18 14:18 Valproate Sodium (Depakene) 250 mg PO BID [facility]; Protocol Stop: 05/11/18 08:59 Last Admin: 03/21/18 08:51 Dose: Not Given General: Alert, No acute distress HEENT: Atraumatic Neck: Supple Cardiovascular: Regular rate Lungs: Clear to auscultation Abdomen: Bowel sounds Extremities: Pulses Neurological: Normal speech Assessment/Plan - Assessment Assessment: fracture of left femur agitation, psychosis, noncompliance hypertension osteoarthritis noncompliance - Plan Plan: cpm Nutritional Asmnt/Malnutr-PDOC - Dietary Evaluation Malnutrition Findings (Please click <Entered> for more info): Nutritional Asmnt/Malnutrition Start: 03/12/18 17: 07 Text: Status: Complete Freq: Protocol: Document 03/12/18 17:08 LCHENG (Rec: 03/12/18 17:14 LCHENG [email or web address]) Nutritional Asmnt/Malnutrition Patient General Information Nutritional Screening High Risk Diagnosis fracture of LT femure Pertinent Medical Hx/Surgical Hx dementia, psychosis, HTN, OA, cellulitis Subjective Information Pt seen sitting on bed at time of visit, alert, easily agitated. Pt stated food is ok so far. Per nurse, pt has been refusing medications and exams. Per EMR, PO intake 50% x 3 meals on 03/11. Current Diet Order/ Nutrition Support CCHO 60gm Pertinent Medications oscal w/vit D, colace, lasix, culturelle Pertinent Labs 03/12 Na 134, Cl 97, Cr 0.4, glucseo 220 03/11 POC 237 Nutritional Hx/Data Height 1.73 m Height (Calculated Centimeters) 172.7 Current Weight (lbs) 57.606 kg Weight (Calculated Kilograms) 57.6 Weight (Calculated Grams) 80621.2 [place] Body Weight 140 Body Mass Index (BMI) 19.3 Weight Status Approriate GI Symptoms GI Symptoms None Last BM 03/12 Difficult in: None Skin Integrity/Comment: bruise to arms, skin intact, fredy 15 Current %PO Fair (50-74%) Estimated Nutritional Goals BEE in Kcals: Using Current wt Calories/Kcals/Kg 25-30 Kcals Calculated 3607-1983 Protein: Using Current wt Protein g/k Protein Calculated 58 Fluid: ml 1450-1740ml (1ml/kcal) Nutritional Problem 1. Problem Problem altered nutrition related labs Etiology hyperglycemia Signs/Symptoms: glucse 220 at admission Malnutrition Alert Is there a minimum of two criteria No selected? Query Text:Check all the applicable criteria. A minimum of two criteria are recommended for diagnosis of either severe or non-severe malnutrition. Malnutrition Related to Morbid Obesity Malnutrition related to morbid obesity No Intervention/Recommendation Comments 1. Continue with [facility] 60gm diet as ordered. 2. Monitor PO intake, wt, labs and skin integrity 3. F/U as moderate risk in 3-5 days, 03/15-03/17, PO check 03/14 Expected Outcomes/Goals Expected Outcomes/Goals 1. PO intake to improve and meet at least 75% of nutritional needs. 2. Wt stability, skin to remain intact, labs to approach WNL.
--- NOTE | 2018-03-21 23:31 | Progress Notes ---
DATE: 03/21/2018 SUBJECTIVE: The patient remains highly delusional, mildly agitated, stating that her leg is not broken, "It is all in your mind." The patient notes that her leg was broken, but has healed by "nature." The patient does not give any details. The patient is angry, irritable, disorganized, talking nonsensically. I have considered filing a new [employer] petition, but the patient is currently on Haldol Decanoate and really has not gotten any better other than not being aggressive, but she is still just delusional as she had been. So I am not quite sure if medicating her with antipsychotics will help her current delusional state. I am trying to get in touch with the son. I have called at least half a dozen times, left messages, just left a message now with a call back number to the hospital, to see if anything besides Haldol might be worthwhile trying if the son tells me that she has responded to other antipsychotics, I will move forward with a [employer] petition. JOB# [id number]
== END 2018-03-21 20:40 | DRG 535 ==
LOC: MSI 20:13
PROVIDERS: ADMIT Internal Medicine; ATTEND Internal Medicine
DX: S72.142A Displaced intertrochanteric fracture of left femur, initial encounter for closed fracture (principal); G93.41 Metabolic encephalopathy; L03.116 Cellulitis of left lower limb; L03.115 Cellulitis of right lower limb; F29 Unspecified psychosis not due to a substance or known physiological condition; M19.90 Unspecified osteoarthritis, unspecified site; F20.9 Schizophrenia, unspecified; E11.9 Type 2 diabetes mellitus without complications; I11.0 Hypertensive heart disease with heart failure; I50.9 Heart failure, unspecified; W18.30XA Fall on same level, unspecified, initial encounter; Y93.89 Activity, other specified; Y92.89 Other specified places as the place of occurrence of the external cause; Y99.8 Other external cause status; Z91.19 Patient's noncompliance with other medical treatment and regimen
CPT/HCPCS: 36415-UA; 80048-TC; 80053-TC; 82948-90; 83036-90; 85007-TC; 85025-TC; 85610-TC; 93005; J1200; J1630; J2060; Z7610

== ENCOUNTER 2018-03-21 21:24 | Inpatient (IN) | payer MEDICARE, MEDICAID ==
[2018-03-21 21:48] VITALS: BP 0/0
[2018-03-21] MEDS ORDERED: Hydrocodone/APAP 5mg/325mg Tab PO PRN (21:48)
[2018-03-21] MEDS ORDERED: Haloperidol Lactate 5 mg/mL 1mL Vial IM PRN (21:48)
[2018-03-21] MEDS ORDERED: Magnesium Hydroxide (MOM) 30 mL UDC PO PRN (21:48)
[2018-03-21] MEDS ORDERED: Maalox 30 mL Cup PO PRN (21:48)
--- NOTE | 2018-03-22 00:33 | Progress Notes ---
DATE: 03/21/2018 SUBJECTIVE: Chart reviewed and the patient interviewed. Also, discussed the patient's condition with the staff and reviewed records and labs. The patient is still in irritable and angry mood and she still needs redirections and close monitoring. She also is still suspicious and paranoid and hyper talkative and has difficulty getting on coherent conversation. Otherwise, the patient is interacting with others and trying to follow directions. ASSESSMENT: The patient is still psychotic and agitated. TREATMENT PLAN: Continue to monitor behavior and condition closely. Also, continue working on her agitation and irritability as well as discharge plans. JOB# [id number]
[2018-03-22] MEDS: Haloperidol Lactate 2 mg/mL Udc PO SCH ×2 (10:00→17:21)
[2018-03-22] MEDS: Calcium Carb/Vit D 500 mg/200 U Tab PO SCH (12:48)
[2018-03-22] MEDS: Lactobacillus Rhamnosus GG 15 Billion CFU CAP.SPRINK PO SCH (12:49)
[2018-03-22] MEDS: Multivitamin w/ Minerals Tab PO SCH (12:50)
[2018-03-23] MEDS: Haloperidol Lactate 2 mg/mL Udc PO SCH (12:05)
[2018-03-23] MEDS: Lactobacillus Rhamnosus GG 15 Billion CFU CAP.SPRINK PO SCH ×2 (12:05→12:28)
[2018-03-23] MEDS: Multivitamin w/ Minerals Tab PO SCH (12:06)
[2018-03-23] MEDS: Calcium Carb/Vit D 500 mg/200 U Tab PO SCH (12:28)
--- NOTE | 2018-03-23 14:59 | Psychiatric Evaluation ---
DATE OF SERVICE: PSYCHIATRIC INITIAL EVALUATION AND MENTAL STATUS EXAM PATIENT'S AGE: 77-year-old. SEX: Female. PHYSICIAN: Dr. Mckeon. CHIEF COMPLAINT: Agitation and uncooperative with the staff. HISTORY OF PRESENT ILLNESS: The patient is a 77-year-old female transferred from Med/Surg Unit to the Geropsych unit because the patient has been extremely irritable and extremely agitated. The patient was originally transferred from ____ [facility] because of agitation and irritability. The patient also was not able to follow up directions there. On admission, the patient was admitted to the Geropsych unit and the patient was noted to be confused, agitated and demented and the patient was ____ and the patient was transferred to [facility] Unit. The patient ____ blood drawn and she is easily agitated and easily irritable. She is also forgetful and unable to follow staff directions. PAST PSYCHIATRIC HISTORY: The patient has history of what seems to be schizoaffective disorder. PAST MEDICAL HISTORY: The patient's medical history as per family physician. SOCIAL HISTORY: The patient lives in [facility]. No alcohol or drug use. ALLERGIES: No known allergies. MENTAL STATUS EXAMINATION: The patient appears her stated age. Anxious. Not too much communication and poor speech. The patient is easily irritable and easily agitated. The patient denies any hallucinations or delusions, but seems to actively responding and talking to herself. The patient does not have any thoughts of suicide or homicide. No hallucinations. Poor insight. Poor judgment. Impaired immediate, recent and remote memories. ASSESSMENT: PRIMARY DIAGNOSIS: Schizoaffective disorder, unspecified. SECONDARY DIAGNOSIS: Dementia, severe with behavioral problems and psychosis. TREATMENT PLAN: We will continue monitoring the patient's behavior closely. We will work on her agitation and irritability and we will also adjust psychotropic medications. Also, work on her left hip fracture. ESTIMATED LENGTH OF STAY: 5-7 days. THE PATIENT'S STRENGTHS AND WEAKNESSES: The patient's strength is not clear at this time. Weakness is ineffective coping and poor judgment. AFTER DISCHARGE PLAN: The patient will return to [facility] and outpatient treatment will be continued there. CRITERIA FOR DISCHARGE: The patient will not be psychotic or agitated and will stabilize psychotropic medications and will establish outpatient treatment plans. JOB# [id number]
[2018-03-23] MEDS: Haldol Oral Sol.(concentrate) 10 mg/5 mL Udc PO SCH (17:27)
--- NOTE | 2018-03-23 22:43 | History & Physical ---
ADMIT DATE: 03/22/2018 HISTORY AND PHYSICAL FOR GEROPSYCH UNIT This patient was seen in the medical floor and the patient was transferred to Geropsych Unit for mental evaluation and mental examination for increasing agitation, uncooperative with the staff. HISTORY OF PRESENT ILLNESS: A 77-year-old female patient, who was transferred from med/surg unit. The patient from [place] complaining of severe uncooperation. The patient has had a history of fall, found to have history of fracture, and the patient was having problem with cooperation and that is the reason she was transferred. PAST MEDICAL HISTORY: History of schizoaffective disorder. SOCIAL HISTORY: Lives in [place]. PHYSICAL EXAMINATION: GENERAL: The patient is awake, alert, elderly female patient, very agitated. HEAD: Normal. ENT: Normal. NECK: Supple, nontender. LUNGS: Clear. CARDIOVASCULAR SYSTEM: S1, S2 heard. The patient's range of motion of the hip was limited complaining of pain with a diagnosis of history of fall, status post hip fracture, schizoaffective disorder, agitation. We will follow along with Dr. Mckeon. JOB# [id number]
[2018-03-23] MEDS: Acetaminophen 500 MG TAB PO PRN (22:48)
[2018-03-24] MEDS: Acetaminophen 500 MG TAB PO PRN ×2 (08:44→16:27)
[2018-03-24] MEDS: Calcium Carb/Vit D 500 mg/200 U Tab PO SCH (08:46)
[2018-03-24] MEDS: Lactobacillus Rhamnosus GG 15 Billion CFU CAP.SPRINK PO SCH (08:47)
[2018-03-24] MEDS: Haldol Oral Sol.(concentrate) 10 mg/5 mL Udc PO SCH ×2 (08:47→16:28)
[2018-03-24] MEDS: Multivitamin w/ Minerals Tab PO SCH (08:47)
--- NOTE | 2018-03-24 12:34 | Progress Notes ---
DATE: 03/23/2018 SUBJECTIVE: The patient is very psychotic, stating that everything is "in your head." Noted by staff to be drinking urine believing it is antibiotics. She has been somewhat more medication compliant, but easily irritable, angry, agitated, suspicious, and paranoid. Per her son, who I spoke with on the phone over a few days ago, the patient's delusions are fixed. They do not unfortunately improve much. Medication does help in regards to her agitation. The patient is currently on Haldol Decanoate and also taking Haldol twice daily, but not very consistently. ASSESSMENT: The patient is yelling, psychotic, still agitated, bizarre behaviors as noted. I will be titrating Haldol. JOB# [id number]
--- NOTE | 2018-03-24 17:39 | General Progress Note ---
Subjective - Review of Systems Service Date: 03/24/18 Objective - Physical Exam Vitals and I&O: Vital Signs Temp 98.0 F 03/24/18 14:00 Pulse 102 03/24/18 16:28 Resp 18 03/24/18 14:00 BP 136/91 03/24/18 16:28 Pulse Ox 98 03/24/18 14:00 Intake & Output 03/23/18 03/24/18 03/24/18 18:59 06:59 18:59 Intake Total 1200 Balance 1200 Intake: Oral 1200 Other: # Bowel Movements 1 Active Medications: Current Medications Acetaminophen (Tylenol) 650 mg PO Q4HR PRN PRN Reason: Mild Pain / Temp above 100 Stop: 05/20/18 21:47 Last Admin: 03/23/18 13:22 Dose: 650 mg Acetaminophen (Tylenol Extra Strength) 1,000 mg PO Q4HR PRN PRN Reason: Pain (Severe) Stop: 05/20/18 21:47 Last Admin: 03/24/18 16:27 Dose: 1,000 mg Acetaminophen/Hydrocodone Bitart ([place] 5mg/325mg) 1 tab PO Q4H PRN PRN Reason: Pain (Severe) Stop: 05/20/18 21:47 Al Hydrox/Mg Hydrox/Simethicone (Maalox) 30 ml PO Q4HR PRN PRN Reason: GI DISTRESS Stop: 05/20/18 21:47 Calcium/Vitamin D (Oscal W/Vitamin D) 1 tab PO DAILY [facility] Stop: 05/21/18 08:59 Last Admin: 03/24/18 08:46 Dose: Not Given Carvedilol (Coreg) 3.125 mg PO BID [facility] Stop: 05/21/18 08:59 Last Admin: 03/24/18 16:28 Dose: 3.125 mg Diphenhydramine HCl (Benadryl 50 Mg/Ml) 25 mg IM BID PRN PRN Reason: Agitation Stop: 05/20/18 21:47 Docusate Sodium (Colace) 100 mg PO DAILY [facility] Stop: 05/21/18 08:59 Last Admin: 03/24/18 08:46 Dose: Not Given Furosemide (Lasix) 40 mg PO DAILY [facility] Stop: 05/21/18 08:59 Last Admin: 03/24/18 08:46 Dose: Not Given Haloperidol Decanoate (Haldol Dec) 25 mg IM Q30D@1000 [facility]; Protocol Stop: 05/21/18 09:59 Last Admin: 03/22/18 13:01 Dose: 25 mg Haloperidol Lactate (Haldol) 3 mg IM BID PRN PRN Reason: Agitation Stop: 05/20/18 21:47 Haloperidol Lactate (Haldol Concentrate 10mg/5ml Susp) 5 mg PO BID [facility]; Protocol Stop: 05/22/18 16:59 Last Admin: 03/24/18 16:28 Dose: 5 mg Lactobacillus Rhamnosus (Culturelle 15b) 1 each PO DAILY [facility] Stop: 05/21/18 08:59 Last Admin: 03/24/18 08:47 Dose: Not Given Lisinopril (Zestril) 5 mg PO DAILY [facility] Stop: 05/21/18 08:59 Last Admin: 03/24/18 08:47 Dose: Not Given Loratadine (Claritin) 10 mg PO DAILY PRN PRN Reason: Itching Stop: 05/20/18 21:47 Lorazepam (Ativan) 0.5 mg PO Q4HR PRN; Protocol PRN Reason: Anxiety Stop: 04/20/18 22:05 Magnesium Hydroxide (Milk Of Magnesia) 30 ml PO HS PRN PRN Reason: Constipation Stop: 05/20/18 21:47 Mirtazapine (Remeron) 15 mg PO HS [facility]; Protocol Stop: 05/21/18 20:59 Last Admin: 03/23/18 21:21 Dose: Not Given Mupirocin (Bactroban Oint) 1 appl TP BID [facility] Stop: 05/21/18 08:59 Last Admin: 03/24/18 16:28 Dose: Not Given Valproate Sodium (Depakene) 250 mg PO BID [facility]; Protocol Stop: 05/21/18 08:59 Last Admin: 03/24/18 16:28 Dose: 250 mg Zolpidem Tartrate (Ambien) 5 mg PO HS PRN PRN Reason: Insomnia Stop: 05/20/18 22:05 Nutritional Asmnt/Malnutr-PDOC - Dietary Evaluation Malnutrition Findings (Please click <Entered> for more info): Nutritional Asmnt/Malnutrition Start: 03/24/18 11: 07 Text: Status: Complete Freq: Protocol: Document 03/24/18 11:24 MMULHERN (Rec: 03/24/18 11:43 RUBI KELTON- FNS1) Nutritional Asmnt/Malnutrition Patient General Information Nutritional Screening Moderate Risk Diagnosis Psychosis Pertinent Medical Hx/Surgical Hx Schizoaffective disorder, ncrease agitation,Left hip fracture,with medical history of hypertension,osteoarthritis ,dementia Subjective Information Per notes, patient unable to have a meaningful conversation . Per DISTILLERY MILLER, patient has a good appetite and tolerating current diet with adequate oral intake. Current Diet Order/ Nutrition Support Regular Patient / S.O Not Indicated Pertinent Medications Maalox, Oscal W/D, Colace, lasix, MOM Pertinent Labs No labs since admission Nutritional Hx/Data Height 1.73 m Height (Calculated Centimeters) 172.7 Current Weight (lbs) 58.06 kg Weight (Calculated Kilograms) 58.1 Weight (Calculated Grams) 31266.8 [place] Body Weight 140 % [place] Body Weight 91 Body Mass Index (BMI) 19.4 Recent Weight Change No Weight Status Approriate GI Symptoms GI Symptoms None Last BM 03/23 x 1 Difficult in: None Food Allergies No Cultural/Ethnic/Congregational Belief none indicated Skin Integrity/Comment: Ulises Zuñiga Current %PO Good (75-100%) Estimated Nutritional Goals BEE in Kcals: Using Current wt Calories/Kcals/Kg 27-32 kcal/kg (using 58.1 CBW) Kcals Calculated ~1225-7300 kcal/day Protein: Using Current wt Protein g/k-1.2 gm/kg Protein Calculated ~60-70 gm/day Fluid: ml ~4524-2454 ml/day Nutritional Problem 1. Problem Problem No nutrition diagnosis at this time Intervention/Recommendation Comments 1. Continue regular diet as tolerated by patient. 2. Consider checking nutrition related labs to determine need for therapeutic diet. Expected Outcomes/Goals Expected Outcomes/Goals Weight stable or trend toward ideal body weight, nutrition related labs WNL, oral intake >75% of meals. F/U LR 03/31
--- NOTE | 2018-03-25 08:48 | Progress Notes ---
DATE: 03/24/2018 SUBJECTIVE: The patient seen, chart reviewed, discussed with staff. The patient is seen today 03/24/2018. The patient remains irritable, agitated, still delusional. Denying that she hurts her leg, stating ____ on your head. We will continue to monitor, titrate and adjust medications. The patient remains symptomatic. Per staff, she drank her urine yesterday stating it was an antibiotic. ASSESSMENT: The patient remains DICTATION ENDS HERE JOB# [id number]
[2018-03-25] MEDS: Calcium Carb/Vit D 500 mg/200 U Tab PO SCH ×2 (09:14→09:50)
[2018-03-25] MEDS: Multivitamin w/ Minerals Tab PO SCH ×2 (09:15→09:50)
[2018-03-25] MEDS: Lactobacillus Rhamnosus GG 15 Billion CFU CAP.SPRINK PO SCH (09:15)
[2018-03-25] MEDS: Haldol Oral Sol.(concentrate) 10 mg/5 mL Udc PO SCH ×2 (09:51→17:43)
[2018-03-25] MEDS: Acetaminophen 500 MG TAB PO PRN ×2 (09:52→17:43)
--- NOTE | 2018-03-25 16:25 | Progress Notes ---
DATE: 03/25/2018 SUBJECTIVE: The patient not answering any questions, whenever I have asked her questions, she states "What do you think?" Still denying that she had a fracture, noting "it's all in mind," denying that she has mental illness, "it's all in mind." Long history of schizophrenia. Son noting when I spoke with him a few days ago that regardless of the medications that she takes she does remain delusional. She just gets less aggressive. The patient still needing assistance, seems confused, disoriented, disorganized, throwing trash on the floor at times. ASSESSMENT: The patient remains symptomatic, have been medication refusals, she may be at her baseline. PLAN: We will continue to monitor. Recent dose increase of Haldol. [facility]# [id number]
--- NOTE | 2018-03-25 18:38 | General Progress Note ---
Objective - Physical Exam Vitals and I&O: Vital Signs Temp 0 F 03/25/18 14:23 Pulse 102 03/24/18 16:28 Resp 18 03/24/18 14:00 BP 136/91 03/24/18 16:28 Pulse Ox 98 03/24/18 14:00 Intake & Output 03/24/18 03/25/18 03/25/18 18:59 06:59 18:59 Intake Total 1000 120 Balance 1000 120 Intake: Oral 1000 120 Other: # Voids 4 2 2 # Bowel Movements 1 0 Active Medications: Current Medications Acetaminophen (Tylenol) 650 mg PO Q4HR PRN PRN Reason: Mild Pain / Temp above 100 Stop: 05/20/18 21:47 Last Admin: 03/23/18 13:22 Dose: 650 mg Acetaminophen (Tylenol Extra Strength) 1,000 mg PO Q4HR PRN PRN Reason: Pain (Severe) Stop: 05/20/18 21:47 Last Admin: 03/25/18 17:43 Dose: 1,000 mg Acetaminophen/Hydrocodone Bitart ([place] 5mg/325mg) 1 tab PO Q4H PRN PRN Reason: Pain (Severe) Stop: 05/20/18 21:47 Al Hydrox/Mg Hydrox/Simethicone (Maalox) 30 ml PO Q4HR PRN PRN Reason: GI DISTRESS Stop: 05/20/18 21:47 Calcium/Vitamin D (Oscal W/Vitamin D) 1 tab PO DAILY [facility] Stop: 05/21/18 08:59 Last Admin: 03/25/18 09:50 Dose: 1 tab Carvedilol (Coreg) 3.125 mg PO BID [facility] Stop: 05/21/18 08:59 Last Admin: 03/25/18 17:43 Dose: Not Given Diphenhydramine HCl (Benadryl 50 Mg/Ml) 25 mg IM BID PRN PRN Reason: Agitation Stop: 05/20/18 21:47 Docusate Sodium (Colace) 100 mg PO DAILY [facility] Stop: 05/21/18 08:59 Last Admin: 03/25/18 09:15 Dose: Not Given Furosemide (Lasix) 40 mg PO DAILY [facility] Stop: 05/21/18 08:59 Last Admin: 03/25/18 09:15 Dose: Not Given Haloperidol Decanoate (Haldol Dec) 25 mg IM Q30D@1000 [facility]; Protocol Stop: 05/21/18 09:59 Last Admin: 03/22/18 13:01 Dose: 25 mg Haloperidol Lactate (Haldol) 3 mg IM BID PRN PRN Reason: Agitation Stop: 05/20/18 21:47 Haloperidol Lactate (Haldol Concentrate 10mg/5ml Susp) 5 mg PO BID [facility]; Protocol Stop: 05/22/18 16:59 Last Admin: 03/25/18 17:43 Dose: 5 mg Lactobacillus Rhamnosus (Culturelle 15b) 1 each PO DAILY [facility] Stop: 05/21/18 08:59 Last Admin: 03/25/18 09:15 Dose: Not Given Lisinopril (Zestril) 5 mg PO DAILY [facility] Stop: 05/21/18 08:59 Last Admin: 03/25/18 09:15 Dose: Not Given Loratadine (Claritin) 10 mg PO DAILY PRN PRN Reason: Itching Stop: 05/20/18 21:47 Lorazepam (Ativan) 0.5 mg PO Q4HR PRN; Protocol PRN Reason: Anxiety Stop: 04/20/18 22:05 Magnesium Hydroxide (Milk Of Magnesia) 30 ml PO HS PRN PRN Reason: Constipation Stop: 05/20/18 21:47 Mirtazapine (Remeron) 15 mg PO HS [facility]; Protocol Stop: 05/21/18 20:59 Last Admin: 03/24/18 21:16 Dose: Not Given Mupirocin (Bactroban Oint) 1 appl TP BID [facility] Stop: 05/21/18 08:59 Last Admin: 03/25/18 17:43 Dose: Not Given Valproate Sodium (Depakene) 250 mg PO BID [facility]; Protocol Stop: 05/21/18 08:59 Last Admin: 03/25/18 17:42 Dose: 250 mg Zolpidem Tartrate (Ambien) 5 mg PO HS PRN PRN Reason: Insomnia Stop: 05/20/18 22:05 Nutritional Asmnt/Malnutr-PDOC - Dietary Evaluation Malnutrition Findings (Please click <Entered> for more info): Nutritional Asmnt/Malnutrition Start: 03/24/18 11: 07 Text: Status: Complete Freq: Protocol: Document 03/24/18 11:24 MMULN (Rec: 03/24/18 11:43 RUBI KELTON- FNS1) Nutritional Asmnt/Malnutrition Patient General Information Nutritional Screening Moderate Risk Diagnosis Psychosis Pertinent Medical Hx/Surgical Hx Schizoaffective disorder, ncrease agitation,Left hip fracture,with medical history of hypertension,osteoarthritis ,dementia Subjective Information Per notes, patient unable to have a meaningful conversation . Per CORE RESCUER, patient has a good appetite and tolerating current diet with adequate oral intake. Current Diet Order/ Nutrition Support Regular Patient / S.O Not Indicated Pertinent Medications Maalox, Oscal W/D, Colace, lasix, MOM Pertinent Labs No labs since admission Nutritional Hx/Data Height 1.73 m Height (Calculated Centimeters) 172.7 Current Weight (lbs) 58.06 kg Weight (Calculated Kilograms) 58.1 Weight (Calculated Grams) 14559.8 [place] Body Weight 140 % [place] Body Weight 91 Body Mass Index (BMI) 19.4 Recent Weight Change No Weight Status Approriate GI Symptoms GI Symptoms None Last BM 03/23 x 1 Difficult in: None Food Allergies No Cultural/Ethnic/Pentecostal Belief none indicated Skin Integrity/Comment: Ulises 16 Current %PO Good (75-100%) Estimated Nutritional Goals BEE in Kcals: Using Current wt Calories/Kcals/Kg 27-32 kcal/kg (using 58.1 CBW) Kcals Calculated ~3356-0295 kcal/day Protein: Using Current wt Protein g/k-1.2 gm/kg Protein Calculated ~60-70 gm/day Fluid: ml ~3910-3956 ml/day Nutritional Problem 1. Problem Problem No nutrition diagnosis at this time Intervention/Recommendation Comments 1. Continue regular diet as tolerated by patient. 2. Consider checking nutrition related labs to determine need for therapeutic diet. Expected Outcomes/Goals Expected Outcomes/Goals Weight stable or trend toward ideal body weight, nutrition related labs WNL, oral intake >75% of meals. F/U LR 03/31
[2018-03-26] MEDS: Calcium Carb/Vit D 500 mg/200 U Tab PO SCH (09:54)
[2018-03-26] MEDS: Multivitamin w/ Minerals Tab PO SCH (09:55)
[2018-03-26] MEDS: Lactobacillus Rhamnosus GG 15 Billion CFU CAP.SPRINK PO SCH (09:55)
[2018-03-26] MEDS: Haldol Oral Sol.(concentrate) 10 mg/5 mL Udc PO SCH ×2 (09:55→17:27)
--- NOTE | 2018-03-27 05:15 | Progress Notes ---
DATE: 03/26/2018 The patient was seen today 03/26/2018. The patient remains agitated, refusing to speak with me, stating that everything I am asking her is "in my mind." Denying that she has a fracture "it is in your mind." Denying that she has mental illness "it is in your mind." Poor historian. Sometimes taking medications, currently on Haldol Decanoate. Per son, this is likely her current baseline. As long as she is unaggressive, she does not really improve in regards to delusions. The patient is using wheelchair to ambulate, needs constant redirection, prompting, remains delusional. Per son this is chronic. ASSESSMENT: The patient remains delusional, psychotic, and not safe for a lower level of care but she has been more compliant with treatment. We will continue to monitor. [facility]# [id number]
[2018-03-27] MEDS: Multivitamin w/ Minerals Tab PO SCH (09:09)
[2018-03-27] MEDS: Lactobacillus Rhamnosus GG 15 Billion CFU CAP.SPRINK PO SCH (09:09)
[2018-03-27] MEDS: Haldol Oral Sol.(concentrate) 10 mg/5 mL Udc PO SCH ×2 (09:09→18:04)
[2018-03-27] MEDS: Calcium Carb/Vit D 500 mg/200 U Tab PO SCH (09:09)
--- NOTE | 2018-03-27 18:55 | General Progress Note ---
Objective - Physical Exam Vitals and I&O: Vital Signs Temp 97.8 F 03/27/18 14:00 Pulse 90 03/27/18 14:00 Resp 20 03/27/18 14:00 BP 114/68 03/27/18 14:00 Pulse Ox 97 03/27/18 14:00 Intake & Output 03/26/18 03/27/18 03/27/18 18:59 06:59 18:59 Intake Total 360 900 Balance 360 900 Intake: Oral 360 900 Other: # Voids 2 3 # Bowel Movements 1 1 1 Active Medications: Current Medications Acetaminophen (Tylenol) 650 mg PO Q4HR PRN PRN Reason: Mild Pain / Temp above 100 Stop: 05/20/18 21:47 Last Admin: 03/23/18 13:22 Dose: 650 mg Acetaminophen (Tylenol Extra Strength) 1,000 mg PO Q4HR PRN PRN Reason: Pain (Severe) Stop: 05/20/18 21:47 Last Admin: 03/25/18 17:43 Dose: 1,000 mg Acetaminophen/Hydrocodone Bitart ([place] 5mg/325mg) 1 tab PO Q4H PRN PRN Reason: Pain (Severe) Stop: 05/20/18 21:47 Al Hydrox/Mg Hydrox/Simethicone (Maalox) 30 ml PO Q4HR PRN PRN Reason: GI DISTRESS Stop: 05/20/18 21:47 Calcium/Vitamin D (Oscal W/Vitamin D) 1 tab PO DAILY [facility] Stop: 05/21/18 08:59 Last Admin: 03/27/18 09:09 Dose: Not Given Carvedilol (Coreg) 3.125 mg PO BID [facility] Stop: 05/21/18 08:59 Last Admin: 03/27/18 18:04 Dose: Not Given Diphenhydramine HCl (Benadryl 50 Mg/Ml) 25 mg IM BID PRN PRN Reason: Agitation Stop: 05/20/18 21:47 Docusate Sodium (Colace) 100 mg PO DAILY [facility] Stop: 05/21/18 08:59 Last Admin: 03/27/18 09:09 Dose: Not Given Furosemide (Lasix) 40 mg PO DAILY [facility] Stop: 05/21/18 08:59 Last Admin: 03/27/18 09:09 Dose: Not Given Haloperidol Decanoate (Haldol Dec) 25 mg IM Q30D@1000 [facility]; Protocol Stop: 05/21/18 09:59 Last Admin: 03/22/18 13:01 Dose: 25 mg Haloperidol Lactate (Haldol) 3 mg IM BID PRN PRN Reason: Agitation Stop: 05/20/18 21:47 Haloperidol Lactate (Haldol Concentrate 10mg/5ml Susp) 5 mg PO BID [facility]; Protocol Stop: 05/22/18 16:59 Last Admin: 03/27/18 18:04 Dose: Not Given Lactobacillus Rhamnosus (Culturelle 15b) 1 each PO DAILY [facility] Stop: 05/21/18 08:59 Last Admin: 03/27/18 09:09 Dose: Not Given Lisinopril (Zestril) 5 mg PO DAILY [facility] Stop: 05/21/18 08:59 Last Admin: 03/27/18 09:09 Dose: Not Given Loratadine (Claritin) 10 mg PO DAILY PRN PRN Reason: Itching Stop: 05/20/18 21:47 Lorazepam (Ativan) 0.5 mg PO Q4HR PRN; Protocol PRN Reason: Anxiety Stop: 04/20/18 22:05 Magnesium Hydroxide (Milk Of Magnesia) 30 ml PO HS PRN PRN Reason: Constipation Stop: 05/20/18 21:47 Mirtazapine (Remeron) 15 mg PO HS [facility]; Protocol Stop: 05/21/18 20:59 Last Admin: 03/26/18 20:53 Dose: Not Given Mupirocin (Bactroban Oint) 1 appl TP BID [facility] Stop: 05/21/18 08:59 Last Admin: 03/27/18 18:04 Dose: Not Given Valproate Sodium (Depakene) 250 mg PO BID [facility]; Protocol Stop: 05/21/18 08:59 Last Admin: 03/27/18 18:04 Dose: Not Given Zolpidem Tartrate (Ambien) 5 mg PO HS PRN PRN Reason: Insomnia Stop: 05/20/18 22:05 Nutritional Asmnt/Malnutr-PDOC - Dietary Evaluation Malnutrition Findings (Please click <Entered> for more info): Nutritional Asmnt/Malnutrition Start: 03/24/18 11: 07 Text: Status: Complete Freq: Protocol: Document 03/24/18 11:24 MMULKYE (Rec: 03/24/18 11:43 RUBI KELTON- FNS1) Nutritional Asmnt/Malnutrition Patient General Information Nutritional Screening Moderate Risk Diagnosis Psychosis Pertinent Medical Hx/Surgical Hx Schizoaffective disorder, ncrease agitation,Left hip fracture,with medical history of hypertension,osteoarthritis ,dementia Subjective Information Per notes, patient unable to have a meaningful conversation . Per AUTO RENTAL CLERK, patient has a good appetite and tolerating current diet with adequate oral intake. Current Diet Order/ Nutrition Support Regular Patient / S.O Not Indicated Pertinent Medications Maalox, Oscal W/D, Colace, lasix, MOM Pertinent Labs No labs since admission Nutritional Hx/Data Height 1.73 m Height (Calculated Centimeters) 172.7 Current Weight (lbs) 58.06 kg Weight (Calculated Kilograms) 58.1 Weight (Calculated Grams) 45728.8 [place] Body Weight 140 % [place] Body Weight 91 Body Mass Index (BMI) 19.4 Recent Weight Change No Weight Status Approriate GI Symptoms GI Symptoms None Last BM 03/23 x 1 Difficult in: None Food Allergies No Cultural/Ethnic/Tenriism Belief none indicated Skin Integrity/Comment: Ulises Zuñiga Current %PO Good (75-100%) Estimated Nutritional Goals BEE in Kcals: Using Current wt Calories/Kcals/Kg 27-32 kcal/kg (using 58.1 CBW) Kcals Calculated ~0168-8313 kcal/day Protein: Using Current wt Protein g/k-1.2 gm/kg Protein Calculated ~60-70 gm/day Fluid: ml ~4295-1594 ml/day Nutritional Problem 1. Problem Problem No nutrition diagnosis at this time Intervention/Recommendation Comments 1. Continue regular diet as tolerated by patient. 2. Consider checking nutrition related labs to determine need for therapeutic diet. Expected Outcomes/Goals Expected Outcomes/Goals Weight stable or trend toward ideal body weight, nutrition related labs WNL, oral intake >75% of meals. F/U LR 03/31
--- NOTE | 2018-03-27 20:21 | Progress Notes ---
DATE: 03/27/2018 SUBJECTIVE: The patient is currently in the hospital, delusional, symptomatic, refusing to speak with me, resistant to care at times, sometimes not taking medications, still not believing that she has a fracture "it is all in your head," resting comfortably, seems somewhat calmer over the past few days, no longer as agitated. The patient has been more compliant with treatment overall. ASSESSMENT: The patient calmer, better med compliance. We will continue to monitor, delusions ongoing. JOB# [id number]
[2018-03-28] MEDS: Calcium Carb/Vit D 500 mg/200 U Tab PO SCH (08:53)
[2018-03-28] MEDS: Multivitamin w/ Minerals Tab PO SCH (08:55)
[2018-03-28] MEDS: Lactobacillus Rhamnosus GG 15 Billion CFU CAP.SPRINK PO SCH (08:55)
[2018-03-28] MEDS: Haldol Oral Sol.(concentrate) 10 mg/5 mL Udc PO SCH ×2 (09:08→16:47)
--- NOTE | 2018-03-28 15:27 | General Progress Note ---
Subjective - Review of Systems Events since last encounter: pt. c/o's of hip pain, still presents with psychosis Objective - Physical Exam Vitals and I&O: Vital Signs Temp 97.8 F 03/27/18 14:00 Pulse 120 03/28/18 09:12 Resp 20 03/27/18 14:00 BP 161/79 03/28/18 09:12 Pulse Ox 97 03/27/18 14:00 Intake & Output 03/27/18 03/28/18 03/28/18 18:59 06:59 18:59 Intake Total 900 300 Balance 900 300 Intake: Oral 900 300 Other: # Voids 3 2 # Bowel Movements 1 0 Active Medications: Current Medications Acetaminophen (Tylenol) 650 mg PO Q4HR PRN PRN Reason: Mild Pain / Temp above 100 Stop: 05/20/18 21:47 Last Admin: 03/23/18 13:22 Dose: 650 mg Acetaminophen (Tylenol Extra Strength) 1,000 mg PO Q4HR PRN PRN Reason: Pain (Severe) Stop: 05/20/18 21:47 Last Admin: 03/25/18 17:43 Dose: 1,000 mg Acetaminophen/Hydrocodone Bitart ([place] 5mg/325mg) 1 tab PO Q4H PRN PRN Reason: Pain (Severe) Stop: 05/20/18 21:47 Al Hydrox/Mg Hydrox/Simethicone (Maalox) 30 ml PO Q4HR PRN PRN Reason: GI DISTRESS Stop: 05/20/18 21:47 Calcium/Vitamin D (Oscal W/Vitamin D) 1 tab PO DAILY [facility] Stop: 05/21/18 08:59 Last Admin: 03/28/18 08:53 Dose: Not Given Carvedilol (Coreg) 3.125 mg PO BID [facility] Stop: 05/21/18 08:59 Last Admin: 03/28/18 09:10 Dose: Not Given Diphenhydramine HCl (Benadryl 50 Mg/Ml) 25 mg IM BID PRN PRN Reason: Agitation Stop: 05/20/18 21:47 Docusate Sodium (Colace) 100 mg PO DAILY [facility] Stop: 05/21/18 08:59 Last Admin: 03/28/18 08:54 Dose: Not Given Furosemide (Lasix) 40 mg PO DAILY [facility] Stop: 05/21/18 08:59 Last Admin: 03/28/18 09:11 Dose: Not Given Haloperidol Decanoate (Haldol Dec) 25 mg IM Q30D@1000 [facility]; Protocol Stop: 05/21/18 09:59 Last Admin: 03/22/18 13:01 Dose: 25 mg Haloperidol Lactate (Haldol) 3 mg IM BID PRN PRN Reason: Agitation Stop: 05/20/18 21:47 Haloperidol Lactate (Haldol Concentrate 10mg/5ml Susp) 5 mg PO BID [facility]; Protocol Stop: 05/22/18 16:59 Last Admin: 03/28/18 09:08 Dose: Not Given Lactobacillus Rhamnosus (Culturelle 15b) 1 each PO DAILY [facility] Stop: 05/21/18 08:59 Last Admin: 03/28/18 08:55 Dose: Not Given Lisinopril (Zestril) 5 mg PO DAILY [facility] Stop: 05/21/18 08:59 Last Admin: 03/28/18 09:12 Dose: Not Given Loratadine (Claritin) 10 mg PO DAILY PRN PRN Reason: Itching Stop: 05/20/18 21:47 Lorazepam (Ativan) 0.5 mg PO Q4HR PRN; Protocol PRN Reason: Anxiety Stop: 04/20/18 22:05 Magnesium Hydroxide (Milk Of Magnesia) 30 ml PO HS PRN PRN Reason: Constipation Stop: 05/20/18 21:47 Mirtazapine (Remeron) 15 mg PO HS [facility]; Protocol Stop: 05/21/18 20:59 Last Admin: 03/27/18 21:08 Dose: Not Given Mupirocin (Bactroban Oint) 1 appl TP BID [facility] Stop: 05/21/18 08:59 Last Admin: 03/28/18 08:56 Dose: Not Given Valproate Sodium (Depakene) 250 mg PO BID [facility]; Protocol Stop: 05/21/18 08:59 Last Admin: 03/28/18 08:56 Dose: Not Given Zolpidem Tartrate (Ambien) 5 mg PO HS PRN PRN Reason: Insomnia Stop: 05/20/18 22:05 General: Alert, No acute distress HEENT: Atraumatic Neck: Supple Cardiovascular: Regular rate Lungs: Clear to auscultation Abdomen: Bowel sounds Neurological: Other Psych/Mental Status: Other (psychosis ) Assessment/Plan - Assessment Assessment: h/o fall s/p hip fracture schizoaffective agitation - Plan Plan: cpm ortho eval Nutritional Asmnt/Malnutr-PDOC - Dietary Evaluation Malnutrition Findings (Please click <Entered> for more info): Nutritional Asmnt/Malnutrition Start: 03/24/18 11: 07 Text: Status: Complete Freq: Protocol: Document 03/24/18 11:24 MMKHARI (Rec: 03/24/18 11:43 MMULKYE MELARA- FNS1) Nutritional Asmnt/Malnutrition Patient General Information Nutritional Screening Moderate Risk Diagnosis Psychosis Pertinent Medical Hx/Surgical Hx Schizoaffective disorder, ncrease agitation,Left hip fracture,with medical history of hypertension,osteoarthritis ,dementia Subjective Information Per notes, patient unable to have a meaningful conversation . Per ANIMAL CARE WORKER, patient has a good appetite and tolerating current diet with adequate oral intake. Current Diet Order/ Nutrition Support Regular Patient / S.O Not Indicated Pertinent Medications Maalox, Oscal W/D, Colace, lasix, MOM Pertinent Labs No labs since admission Nutritional Hx/Data Height 1.73 m Height (Calculated Centimeters) 172.7 Current Weight (lbs) 58.06 kg Weight (Calculated Kilograms) 58.1 Weight (Calculated Grams) 71838.8 [place] Body Weight 140 % [place] Body Weight 91 Body Mass Index (BMI) 19.4 Recent Weight Change No Weight Status Approriate GI Symptoms GI Symptoms None Last BM 03/23 x 1 Difficult in: None Food Allergies No Cultural/Ethnic/Denominational Belief none indicated Skin Integrity/Comment: Ulises 16 Current %PO Good (75-100%) Estimated Nutritional Goals BEE in Kcals: Using Current wt Calories/Kcals/Kg 27-32 kcal/kg (using 58.1 CBW) Kcals Calculated ~4310-4484 kcal/day Protein: Using Current wt Protein g/k-1.2 gm/kg Protein Calculated ~60-70 gm/day Fluid: ml ~5383-4180 ml/day Nutritional Problem 1. Problem Problem No nutrition diagnosis at this time Intervention/Recommendation Comments 1. Continue regular diet as tolerated by patient. 2. Consider checking nutrition related labs to determine need for therapeutic diet. Expected Outcomes/Goals Expected Outcomes/Goals Weight stable or trend toward ideal body weight, nutrition related labs WNL, oral intake >75% of meals. F/U LR 03/31
--- NOTE | 2018-03-29 00:49 | Progress Notes ---
DATE: 03/28/2018 SUBJECTIVE: The patient remains symptomatic, still irritable, ongoing delusions, not amenable to talking to me, does not want to talk to me, still demanding at times, not wanting to take medications, still believing that she has no fracture. However, she is significantly calmer. She is not aggressive. Likely this is her baseline. She does have Haldol Decanoate in her system. PLAN: I will continue to monitor. We will continue to adjust and titrate medications. The patient has been calmer on exam, but remains delusional. Still psychotic. JOB# [id number]
[2018-03-29] MEDS: Calcium Carb/Vit D 500 mg/200 U Tab PO SCH (09:09)
[2018-03-29] MEDS: Lactobacillus Rhamnosus GG 15 Billion CFU CAP.SPRINK PO SCH (09:11)
[2018-03-29] MEDS: Haldol Oral Sol.(concentrate) 10 mg/5 mL Udc PO SCH ×2 (09:11→17:14)
[2018-03-29] MEDS: Multivitamin w/ Minerals Tab PO SCH (09:12)
--- NOTE | 2018-03-29 15:34 | General Progress Note ---
Subjective - Review of Systems Events since last encounter: pt. still has psychosis, improving hip pain well controlled with pain meds Objective - Physical Exam Vitals and I&O: Vital Signs Temp 97.8 F 03/27/18 14:00 Pulse 120 03/28/18 09:12 Resp 20 03/27/18 14:00 BP 161/79 03/28/18 09:12 Pulse Ox 97 03/27/18 14:00 Intake & Output 03/28/18 03/29/18 03/29/18 18:59 06:59 18:59 Intake Total 1500 120 Balance 1500 120 Intake: Oral 1500 120 Other: # Voids 3 3 # Bowel Movements 0 Active Medications: Current Medications Acetaminophen (Tylenol) 650 mg PO Q4HR PRN PRN Reason: Mild Pain / Temp above 100 Stop: 05/20/18 21:47 Last Admin: 03/23/18 13:22 Dose: 650 mg Acetaminophen (Tylenol Extra Strength) 1,000 mg PO Q4HR PRN PRN Reason: Pain (Severe) Stop: 05/20/18 21:47 Last Admin: 03/25/18 17:43 Dose: 1,000 mg Acetaminophen/Hydrocodone Bitart ([place] 5mg/325mg) 1 tab PO Q4H PRN PRN Reason: Pain (Severe) Stop: 05/20/18 21:47 Al Hydrox/Mg Hydrox/Simethicone (Maalox) 30 ml PO Q4HR PRN PRN Reason: GI DISTRESS Stop: 05/20/18 21:47 Calcium/Vitamin D (Oscal W/Vitamin D) 1 tab PO DAILY [facility] Stop: 05/21/18 08:59 Last Admin: 03/29/18 09:09 Dose: Not Given Carvedilol (Coreg) 3.125 mg PO BID [facility] Stop: 05/21/18 08:59 Last Admin: 03/29/18 09:10 Dose: Not Given Diphenhydramine HCl (Benadryl 50 Mg/Ml) 25 mg IM BID PRN PRN Reason: Agitation Stop: 05/20/18 21:47 Docusate Sodium (Colace) 100 mg PO DAILY [facility] Stop: 05/21/18 08:59 Last Admin: 03/29/18 09:10 Dose: Not Given Furosemide (Lasix) 40 mg PO DAILY [facility] Stop: 05/21/18 08:59 Last Admin: 03/29/18 09:11 Dose: Not Given Haloperidol Decanoate (Haldol Dec) 25 mg IM Q30D@1000 [facility]; Protocol Stop: 05/21/18 09:59 Last Admin: 03/22/18 13:01 Dose: 25 mg Haloperidol Lactate (Haldol) 3 mg IM BID PRN PRN Reason: Agitation Stop: 05/20/18 21:47 Haloperidol Lactate (Haldol Concentrate 10mg/5ml Susp) 5 mg PO BID [facility]; Protocol Stop: 05/22/18 16:59 Last Admin: 03/29/18 09:11 Dose: Not Given Lactobacillus Rhamnosus (Culturelle 15b) 1 each PO DAILY [facility] Stop: 05/21/18 08:59 Last Admin: 03/29/18 09:11 Dose: Not Given Lisinopril (Zestril) 5 mg PO DAILY [facility] Stop: 05/21/18 08:59 Last Admin: 03/29/18 09:11 Dose: Not Given Loratadine (Claritin) 10 mg PO DAILY PRN PRN Reason: Itching Stop: 05/20/18 21:47 Lorazepam (Ativan) 0.5 mg PO Q4HR PRN; Protocol PRN Reason: Anxiety Stop: 04/20/18 22:05 Magnesium Hydroxide (Milk Of Magnesia) 30 ml PO HS PRN PRN Reason: Constipation Stop: 05/20/18 21:47 Mirtazapine (Remeron) 15 mg PO HS [facility]; Protocol Stop: 05/21/18 20:59 Last Admin: 03/28/18 20:51 Dose: Not Given Mupirocin (Bactroban Oint) 1 appl TP BID [facility] Stop: 05/21/18 08:59 Last Admin: 03/29/18 09:13 Dose: Not Given Valproate Sodium (Depakene) 250 mg PO BID [facility]; Protocol Stop: 05/21/18 08:59 Last Admin: 03/29/18 09:13 Dose: Not Given Zolpidem Tartrate (Ambien) 5 mg PO HS PRN PRN Reason: Insomnia Stop: 05/20/18 22:05 General: Alert, No acute distress HEENT: Atraumatic Neck: Supple Cardiovascular: Regular rate Lungs: Clear to auscultation Abdomen: Bowel sounds Neurological: Other Psych/Mental Status: Other (psychosis ) Assessment/Plan - Assessment Assessment: h/o fall s/p hip fracture schizoaffective agitation - Plan Plan: cpm ortho eval Nutritional Asmnt/Malnutr-PDOC - Dietary Evaluation Malnutrition Findings (Please click <Entered> for more info): Nutritional Asmnt/Malnutrition Start: 03/24/18 11: 07 Text: Status: Complete Freq: Protocol: Document 03/24/18 11:24 MMKHARI (Rec: 03/24/18 11:43 MMULN KELTON- FNS1) Nutritional Asmnt/Malnutrition Patient General Information Nutritional Screening Moderate Risk Diagnosis Psychosis Pertinent Medical Hx/Surgical Hx Schizoaffective disorder, ncrease agitation,Left hip fracture,with medical history of hypertension,osteoarthritis ,dementia Subjective Information Per notes, patient unable to have a meaningful conversation . Per LEGAL ADVISOR, patient has a good appetite and tolerating current diet with adequate oral intake. Current Diet Order/ Nutrition Support Regular Patient / S.O Not Indicated Pertinent Medications Maalox, Oscal W/D, Colace, lasix, MOM Pertinent Labs No labs since admission Nutritional Hx/Data Height 1.73 m Height (Calculated Centimeters) 172.7 Current Weight (lbs) 58.06 kg Weight (Calculated Kilograms) 58.1 Weight (Calculated Grams) 21097.8 [place] Body Weight 140 % [place] Body Weight 91 Body Mass Index (BMI) 19.4 Recent Weight Change No Weight Status Approriate GI Symptoms GI Symptoms None Last BM 03/23 x 1 Difficult in: None Food Allergies No Cultural/Ethnic/Denominational Belief none indicated Skin Integrity/Comment: Ulises 16 Current %PO Good (75-100%) Estimated Nutritional Goals BEE in Kcals: Using Current wt Calories/Kcals/Kg 27-32 kcal/kg (using 58.1 CBW) Kcals Calculated ~7268-1285 kcal/day Protein: Using Current wt Protein g/k-1.2 gm/kg Protein Calculated ~60-70 gm/day Fluid: ml ~3056-7739 ml/day Nutritional Problem 1. Problem Problem No nutrition diagnosis at this time Intervention/Recommendation Comments 1. Continue regular diet as tolerated by patient. 2. Consider checking nutrition related labs to determine need for therapeutic diet. Expected Outcomes/Goals Expected Outcomes/Goals Weight stable or trend toward ideal body weight, nutrition related labs WNL, oral intake >75% of meals. F/U LR 03/31
--- NOTE | 2018-03-29 23:21 | Progress Notes ---
DATE: 03/29/2018 Case was discussed with staff of the patient, reviewed records. This is a well-known patient seen before covering for Dr. Pitts. The patient denied that it was her name. She gave me a different name when I talked to her, she has been demanding. She continues to have poor insight so she does not want to take medication. The patient is reportedly calmer, not as aggressive. She did get Haldol Decanoate. No side effects with the medication, no sedation, no nausea, no extrapyramidal symptoms and we will continue to work with the patient in group therapy, milieu therapy, and adjust the medications as needed. JOB# [id number] NAHID
--- NOTE | 2018-03-30 15:48 | Progress Notes ---
DATE: 03/30/2018 Case was discussed with staff of the patient, reviewed records. The patient continues to be delusional. Continues to have poor insight. Continues to be resistant to taking her medication, demanding, continues to be unable to make safe plan for self-care. There are no side effects with the medication when she takes it. She is actually on Haldol Decanoate because of her refusal for medication and we will continue the patient in group therapy, milieu therapy, and adjust medications as needed. [facility]# [id number]
[2018-03-30] MEDS: Calcium Carb/Vit D 500 mg/200 U Tab PO SCH (16:08)
[2018-03-30] MEDS: Haldol Oral Sol.(concentrate) 10 mg/5 mL Udc PO SCH (16:09)
[2018-03-30] MEDS: Multivitamin w/ Minerals Tab PO SCH (16:10)
[2018-03-30] MEDS: Lactobacillus Rhamnosus GG 15 Billion CFU CAP.SPRINK PO SCH (16:10)
[2018-03-31] MEDS: Calcium Carb/Vit D 500 mg/200 U Tab PO SCH (09:27)
[2018-03-31] MEDS: Lactobacillus Rhamnosus GG 15 Billion CFU CAP.SPRINK PO SCH (09:28)
[2018-03-31] MEDS: Haldol Oral Sol.(concentrate) 10 mg/5 mL Udc PO SCH ×2 (09:28→17:40)
[2018-03-31] MEDS: Multivitamin w/ Minerals Tab PO SCH (09:29)
--- NOTE | 2018-03-31 22:33 | Progress Notes ---
DATE: 03/31/2018 SUBJECTIVE: The patient was seen in her room. The patient is asleep, but easily arousable. The patient is a poor historian due to medical condition. The patient appears to be guarded and irritable, appears to be confused, episodes of agitation and irritability. Otherwise, the patient is in no acute distress. OBJECTIVE: VITAL SIGNS: Temperature 97.6, heart rate 91, blood pressure 134/77, respirations of 18 and 98% on room air. HEENT: Head is atraumatic and normocephalic. Eyes: Bilateral conjunctivae are clear. Bilateral pupils equal, round and reactive. NECK: Supple. No JVD. CARDIOVASCULAR: S1 and S2, without murmur. PULMONARY: Clear to auscultation. GASTROINTESTINAL: Soft and nontender without guarding. Positive bowel sounds. MUSCULOSKELETAL: No clubbing. No cyanosis noted. ASSESSMENT: 1. Schizoaffective disorder. 2. Dementia. 3. Hypertension. 4. Osteoarthritis. PLAN: We will keep the patient inpatient in the Psychiatric Unit. We will follow up with a psychiatrist to monitor the patient's condition and behavior. Treatment plans were discussed with the patient's nurse. Treatment plans were discussed with Dr. Williamson. JOB# [id number]
[2018-04-01] MEDS: Calcium Carb/Vit D 500 mg/200 U Tab PO SCH (08:51)
[2018-04-01] MEDS: Lactobacillus Rhamnosus GG 15 Billion CFU CAP.SPRINK PO SCH (08:51)
[2018-04-01] MEDS: Haldol Oral Sol.(concentrate) 10 mg/5 mL Udc PO SCH ×2 (08:51→18:01)
[2018-04-01] MEDS: Multivitamin w/ Minerals Tab PO SCH (08:52)
--- NOTE | 2018-04-01 12:12 | Progress Notes ---
DATE: 03/31/2018 The patient was seen and evaluated. The patient's chart reviewed. IDENTIFYING DATA: A 77-year-old female transferred from [facility] unit after the patient became extremely guarded, agitated and irritable. She was recently transferred from [facility] as she presented very disorganized. Today on [id number] evaluation and upon approach, the patient presents very irritable, easily agitated, starts verbally threatening me and cursing "you are the issue." MENTAL STATUS EXAMINATION: Irritable, agitated, disorganized, easily agitated. ASSESSMENT AND PLAN: The patient with a history of schizophrenia, chronic type, who presents disorganized and verbally threatening, continues to need a lot of redirection, recently received Haldol Decanoate. Review of medications, she is on Coreg; Lasix, Haldol Decanoate, haloperidol 5 mg p.o. b.i.d.; Remeron 15 mg a day and Depakote 250 b.i.d. JOB# [id number]
--- NOTE | 2018-04-02 05:44 | Progress Notes ---
DATE: 04/01/2018 SUBJECTIVE: The patient was seen and evaluated. The patient's chart reviewed. Overnight nursing staff reported that the patient continues to at times be resistant about taking the medication. Today on [id number] evaluation, the patient reported someone is stealing her antibiotics and stealing her medications and are given her the wrong medications and becomes very easily agitated when attempted to psycho educate the patient about her current medications. MENTAL STATUS EXAMINATION: Irritable, agitated, suspicious about her medications. ASSESSMENT AND PLAN: Continues to be suspicious, paranoid. I will continue with the current medication regimen to continue to reach steady state without complication. She denies any side effects of medications. No EPS, tardive dyskinesia or any side effects endorsed by the patient or observed. JOB# [id number]
[2018-04-02] MEDS: Haldol Oral Sol.(concentrate) 10 mg/5 mL Udc PO SCH (10:08)
[2018-04-02] MEDS: Calcium Carb/Vit D 500 mg/200 U Tab PO SCH (10:08)
[2018-04-02] MEDS: Lactobacillus Rhamnosus GG 15 Billion CFU CAP.SPRINK PO SCH (10:09)
[2018-04-02] MEDS: Multivitamin w/ Minerals Tab PO SCH (10:09)
--- NOTE | 2018-04-02 15:33 | Internal Medicine Prog Note ---
Internal Medicine Subjective - Subjective Patient seen and examined:: chart reviewed Patient is:: awake, agitated, confused Per staff patient has:: no adverse event Internal Medicine Objective - Physical Exam Vitals and I&O: Vital Signs Temp 0 F 04/01/18 06:38 Pulse 97 03/31/18 14:00 Resp 18 03/31/18 14:00 BP 124/71 03/31/18 14:00 Pulse Ox 97 03/31/18 14:00 Intake & Output 04/01/18 04/02/18 04/02/18 18:59 06:59 18:59 Intake Total 1400 240 Balance 1400 240 Intake: Oral 1400 240 Other: # Voids 4 2 # Bowel Movements 2 0 Active Medications: Current Medications Acetaminophen (Tylenol) 650 mg PO Q4HR PRN PRN Reason: Mild Pain / Temp above 100 Stop: 05/20/18 21:47 Last Admin: 03/23/18 13:22 Dose: 650 mg Acetaminophen (Tylenol Extra Strength) 1,000 mg PO Q4HR PRN PRN Reason: Pain (Severe) Stop: 05/20/18 21:47 Last Admin: 03/25/18 17:43 Dose: 1,000 mg Acetaminophen/Hydrocodone Bitart ([place] 5mg/325mg) 1 tab PO Q4H PRN PRN Reason: Pain (Severe) Stop: 05/20/18 21:47 Al Hydrox/Mg Hydrox/Simethicone (Maalox) 30 ml PO Q4HR PRN PRN Reason: GI DISTRESS Stop: 05/20/18 21:47 Calcium/Vitamin D (Oscal W/Vitamin D) 1 tab PO DAILY [facility] Stop: 05/21/18 08:59 Last Admin: 04/02/18 10:08 Dose: Not Given Carvedilol (Coreg) 3.125 mg PO BID [facility] Stop: 05/21/18 08:59 Last Admin: 04/02/18 10:08 Dose: Not Given Diphenhydramine HCl (Benadryl 50 Mg/Ml) 25 mg IM BID PRN PRN Reason: Agitation Stop: 05/20/18 21:47 Docusate Sodium (Colace) 100 mg PO DAILY [facility] Stop: 05/21/18 08:59 Last Admin: 04/02/18 10:08 Dose: Not Given Furosemide (Lasix) 40 mg PO DAILY [facility] Stop: 05/21/18 08:59 Last Admin: 04/02/18 10:08 Dose: Not Given Haloperidol Decanoate (Haldol Dec) 25 mg IM Q30D@1000 [facility]; Protocol Stop: 05/21/18 09:59 Last Admin: 03/22/18 13:01 Dose: 25 mg Haloperidol Lactate (Haldol) 3 mg IM BID PRN PRN Reason: Agitation Stop: 05/20/18 21:47 Haloperidol Lactate (Haldol Concentrate 10mg/5ml Susp) 5 mg PO BID [facility]; Protocol Stop: 05/22/18 16:59 Last Admin: 04/02/18 10:08 Dose: Not Given Lactobacillus Rhamnosus (Culturelle 15b) 1 each PO DAILY [facility] Stop: 05/21/18 08:59 Last Admin: 04/02/18 10:09 Dose: Not Given Lisinopril (Zestril) 5 mg PO DAILY [facility] Stop: 05/21/18 08:59 Last Admin: 04/02/18 10:09 Dose: Not Given Loratadine (Claritin) 10 mg PO DAILY PRN PRN Reason: Itching Stop: 05/20/18 21:47 Lorazepam (Ativan) 0.5 mg PO Q4HR PRN; Protocol PRN Reason: Anxiety Stop: 04/20/18 22:05 Magnesium Hydroxide (Milk Of Magnesia) 30 ml PO HS PRN PRN Reason: Constipation Stop: 05/20/18 21:47 Mirtazapine (Remeron) 15 mg PO HS [facility]; Protocol Stop: 05/21/18 20:59 Last Admin: 04/01/18 21:26 Dose: Not Given Mupirocin (Bactroban Oint) 1 appl TP BID [facility] Stop: 05/21/18 08:59 Last Admin: 04/02/18 10:08 Dose: Not Given Valproate Sodium (Depakene) 250 mg PO BID [facility]; Protocol Stop: 05/21/18 08:59 Last Admin: 04/02/18 10:08 Dose: Not Given Zolpidem Tartrate (Ambien) 5 mg PO HS PRN PRN Reason: Insomnia Stop: 05/20/18 22:05 General: demented HEENT: NC/AT Neck: Supple Lungs: CTAB Cardiovascular: RRR, Normal S1, Normal S2 Abdomen: soft, non-tender Extremities: clear, edema Neurological: no change Internal Medicine Assmt/Plan - Assessment Assessment: h/o fall s/p hip fracture schizoaffective agitation - Plan Plan: cpm ortho eval Nutritional Asmnt/Malnutr-PDOC - Dietary Evaluation Malnutrition Findings (Please click <Entered> for more info): Nutritional Asmnt/Malnutrition Start: 03/24/18 11: 07 Text: Status: Complete Freq: Protocol: Document 03/24/18 11:24 MMULHERN (Rec: 03/24/18 11:43 MMULHERN KELTON- [email or web address]) Nutritional Asmnt/Malnutrition Patient General Information Nutritional Screening Moderate Risk Diagnosis Psychosis Pertinent Medical Hx/Surgical Hx Schizoaffective disorder, ncrease agitation,Left hip fracture,with medical history of hypertension,osteoarthritis ,dementia Subjective Information Per notes, patient unable to have a meaningful conversation . Per AUXILIARY EQUIPMENT TENDER, patient has a good appetite and tolerating current diet with adequate oral intake. Current Diet Order/ Nutrition Support Regular Patient / S.O Not Indicated Pertinent Medications Maalox, Oscal W/D, Colace, lasix, MOM Pertinent Labs No labs since admission Nutritional Hx/Data Height 1.73 m Height (Calculated Centimeters) 172.7 Current Weight (lbs) 58.06 kg Weight (Calculated Kilograms) 58.1 Weight (Calculated Grams) 57691.8 [place] Body Weight 140 % [place] Body Weight 91 Body Mass Index (BMI) 19.4 Recent Weight Change No Weight Status Approriate GI Symptoms GI Symptoms None Last BM 03/23 x 1 Difficult in: None Food Allergies No Cultural/Ethnic/Mandaeism Belief none indicated Skin Integrity/Comment: Ulises 16 Current %PO Good (75-100%) Estimated Nutritional Goals BEE in Kcals: Using Current wt Calories/Kcals/Kg 27-32 kcal/kg (using 58.1 CBW) Kcals Calculated ~7447-1522 kcal/day Protein: Using Current wt Protein g/k-1.2 gm/kg Protein Calculated ~60-70 gm/day Fluid: ml ~1907-6025 ml/day Nutritional Problem 1. Problem Problem No nutrition diagnosis at this time Intervention/Recommendation Comments 1. Continue regular diet as tolerated by patient. 2. Consider checking nutrition related labs to determine need for therapeutic diet. Expected Outcomes/Goals Expected Outcomes/Goals Weight stable or trend toward ideal body weight, nutrition related labs WNL, oral intake >75% of meals. F/U LR 03/31
--- NOTE | 2018-04-02 18:17 | Discharge Summary ---
DATE OF DISCHARGE: 04/02/2018 DISCHARGE DATE: 04/02/2018. HISTORY OF PRESENT ILLNESS: A 77-year-old female transferred from [facility] to the Geropsych Unit; noted to be irritable, agitated, yelling, delusional, for example, believing that her leg was not broken when in fact it was, unruly at times. PAST PSYCHIATRIC HISTORY: Schizophrenia. PAST MEDICAL HISTORY: Noted. SOCIAL HISTORY: Living in a half-way. Son involved. I spoke to the son over the phone. ALLERGIES: Noted. DIAGNOSIS: Schizophrenia. Concerns for an overlying dementia. HOSPITAL COURSE: After initial assessment, the patient was restarted on the medications. The patient had received Haldol Decanoate prior to her admission to the Geropsych Unit. Erratically taking p.o. Haldol over the course of hospitalization, she did calm down. She was more calm, more cooperative, delusions persisted. Son told me that her delusions would persist regardless of the medication she was on. The medications which has helped to calm her down, which is exactly what happened. She was a lot calmer, more cooperative, in general no acting out behaviors, no aggressive behaviors, but delusions did persist, grandiosity has persisted, noted to be sleeping fairly well. CONDITION UPON DISCHARGE: Improved, allowing ADLs, somewhat calmer, more cooperative. Mood "Fine leave me alone." Affect intense. Thought processes were disorganized, odd; however, no SI, no HI. Delusions ongoing in regards to her name and somewhat hyperreligious and does not believe that she needs any type of medications, does not believe that her leg was broken. PROVISIONAL DIAGNOSIS: Schizophrenia. MEDICAL: Please see full H and P. PROGNOSIS: The patient continues to receive Haldol decanoate and remains compliant with treatment. Prognosis will improve, otherwise guarded. JOB# [id number]
[2018-04-03] MEDS: Multivitamin w/ Minerals Tab PO SCH (09:52)
[2018-04-03] MEDS: Calcium Carb/Vit D 500 mg/200 U Tab PO SCH (09:52)
[2018-04-03] MEDS: Lactobacillus Rhamnosus GG 15 Billion CFU CAP.SPRINK PO SCH (09:52)
--- NOTE | 2018-04-03 16:41 | Progress Notes ---
DATE: SUBJECTIVE: The patient seen, chart reviewed, discussed with staff. The patient without any behavioral disturbances. No agitation, no escalation of behaviors, remains fairly delusional, still very upset and fixated on not having any type of fracture, "it is all in your mind." The patient noted to be sleeping well, eating well. No lashing out or violent behaviors. No EPS noted. Delays in her discharge yesterday. The patient to be leaving today. JOB# [id number]
== END 2018-04-03 11:55 | DRG 885 ==
LOC: GERO 21:24
PROVIDERS: ADMIT Psychiatry & Neurology Psychiatry; ATTEND Psychiatry & Neurology Psychiatry
DX: F25.9 Schizoaffective disorder, unspecified (principal); F03.91 Unspecified dementia, unspecified severity, with behavioral disturbance; F29 Unspecified psychosis not due to a substance or known physiological condition; M19.90 Unspecified osteoarthritis, unspecified site; Z91.81 History of falling
CPT/HCPCS: 83036-90; G0410; J1631; Z7610